=== PATIENT | female | born 1925 | race Caucasian/White ===

== ENCOUNTER 2016-10-07 20:42 | Inpatient (IN) | payer MEDICARE, OTHER ==
[~2016-10-07] VITALS: Ht 154.9 cm; Wt 59.1 kg
[~2016-10-07 20:42] MED LIST: AMLO-145; ASPI-727; CLON-379; ESOM40CA; HYDR25TA6; PRAM0.1224; VALS1TAB65; [UNRECOGNIZED DRUG - CODE]
[2016-10-07 20:52] VITALS: Ht 154.9 cm; Wt 59.1 kg
[2016-10-07] MEDS ORDERED: ACET-141 PO (20:54)
[2016-10-07] MEDS ORDERED: BISA10SU75 PR (20:55)
[2016-10-07] MEDS ORDERED: CLON-379 NG-TUBE (20:56)
[2016-10-07] MEDS ORDERED: CYAN500T46 NG-TUBE (21:00)
[2016-10-07] MEDS ORDERED: METO-429 NG-TUBE (21:01)
[2016-10-07] MEDS ORDERED: PANT40TA3 NG-TUBE (21:02)
[2016-10-07] MEDS ORDERED: MULT-276 NG-TUBE (21:06)
[2016-10-07] MEDS ORDERED: ATOR40TA68 NG-TUBE (21:10)
[2016-10-07] MEDS ORDERED: ACET-141 NG-TUBE (21:11)
[2016-10-07] MEDS ORDERED: ASPI81TA3 NG-TUBE (21:13)
[2016-10-07] MEDS ORDERED: WARF5TAB72 NG-TUBE (21:15)
[2016-10-07] MEDS ORDERED: FER325 NG-TUBE (21:16)
[2016-10-07] MEDS ORDERED: RIVA10TA NG-TUBE (21:17)
[2016-10-07] MEDS ORDERED: SS SC (21:22)
[2016-10-07] MEDS ORDERED: SOD CHLORIDE 0.9% 1,000 ML IV STA (21:33)
[2016-10-07] MEDS ORDERED: IPRATROPIUM (NEB) 0.5 MG/2.5 ML AMP NEB STA (21:33)
[2016-10-07] MEDS ORDERED: ALBUTEROL 0.083% (NEB) 2.5 MG/3 ML AMP NEB STA (21:33)
[2016-10-07 21:39] LABS: WHITE BLOOD COUNT 7.6 10^3/ul (4.8-10.8)
[2016-10-07 21:40] LABS: BASOPHILS % 0.3 % (0.0-2.0); EOSINOPHILS # 0.1 10^3/ul (0.0-0.5); EOSINOPHILS % 1.8 % (0.0-7.0); HEMATOCRIT 30.3 % (37.0-47.0); HEMOGLOBIN 10.1 g/dl (12.0-16.0); LYMPHOCYTES # 0.9 10^3/ul (0.8-2.9); LYMPHOCYTES % 11.5 % (15.0-51.0); MEAN CORPUSCULAR HEMOGLOBIN 30.3 pg (29.0-33.0); MEAN CORPUSCULAR HGB CONC 33.3 g/dl (32.0-37.0); MEAN PLATELET VOLUME 10.7 fl (7.4-10.4); MONOCYTE # 0.8 10^3/ul (0.3-0.9); MONOCYTES % 10.1 % (0.0-11.0); NEUTROPHILS % 75.5 % (39.0-77.0); PLATELET COUNT 193 10^3/UL (140-415); RED BLOOD COUNT 3.33 10^6/ul (4.20-5.40); RED CELL DISTRIBUTION WIDTH 12.5 % (11.5-14.5)
[2016-10-07 21:50] LABS: INR 1.78; PARTIAL THROMBOPLASTIN TIME 37.3 Sec (25.0-35.0); PROTIME 20.9 Sec (12.2-14.2); PT RATIO 1.6
[2016-10-07 21:55] LABS: ALBUMIN 3.3 g/dl (3.3-4.9); ALBUMIN/GLOBULIN RATIO 0.97; BILIRUBIN,INDIRECT 0.4 mg/dl (0-1.1); BILIRUBIN,TOTAL 0.4 mg/dl (0.2-1.3); CALCIUM 9.1 mg/dl (8.4-10.2); CREATININE 1.12 mg/dl (0.44-1.00); POTASSIUM 4.3 mmol/L (3.5-5.1); TOTAL PROTEIN 6.7 g/dl (6.1-8.1)
[2016-10-07 22:06] LABS: TROPONIN-I 0.025 ng/ml (0.00-0.12)
--- NOTE | 2016-10-07 22:14 | RADRPT ---
PROCEDURE: XR Chest. CLINICAL INDICATION: Shortness of breath TECHNIQUE: Single AP portable chest. COMPARISON: No prior Chest x-ray FINDINGS: The cardiomediastinal silhouette is within normal limits of size. Tortuosity and ectasia of the thor acic aorta. Atherosclerotic calcification of the aorta. Mild vascular congestion and prominence of the interstitial markings. No focal consolidation or pleural effusion. NG tube tip overlying the body of the stomach. No pneumothorax. The osseous structures and soft tissues are unremarkable. IMPRESSION: 1. Mild vascular congestion. No pleural effusion or focal consolidation. 2. NG tube in satisfactory position. . RPTAT:AAJJ Physician Palomo Date Time Electronically viewed and signed by Physician Palomo on 10/07/2016 22:14 ANUEL/
[2016-10-07] MEDS ORDERED: AZITHROMYCIN 500MG/NS (PMX) 250 ML IV STA (22:19)
--- NOTE | 2016-10-07 22:23 | RADRPT ---
PROCEDURE: XR Abdomen. CLINICAL INDICATION: NG tube placement. TECHNIQUE: Single view of the abdomen is available for review. COMPARISON: None. FINDINGS: There is an NG tube curled in the stomach with its tip overlying the gastric body. There is a nonobstructive bowel gas pattern. The soft tissues are unremarkable. There is lumbar dextrosco liosis and moderate multilevel degenerative enthesopathy. There are surgical clips in the right upp er quadrant, consistent with prior cholecystectomy. IMPRESSION: 1. NG tube curled in the stomach with its tip overlying the gastric body. RPTAT: HLBP .Buddy Ahmadi MD, Date Time Electronically viewed and signed by .Buddy Ahmadi MD, MD on 10/07/2016 22:23 .P/
[2016-10-07] MEDS ORDERED: CEFTRIAXONE 1 GM/50 ML (PMX) 50 ML IVPB ONE (22:30)
[2016-10-07] MEDS ORDERED: SOD CHLORIDE 0.9% 1,000 ML IV SCH (22:48)
--- NOTE | 2016-10-07 22:55 | ERA ---
ER Documentation Chief Complaint Date/Time DATE: 10/07/16 TIME: 22:53 Chief Complaint BIBA [id number] from [facility], tachypnea HPI History obtained from patient's family members as patient is unable to give a history secondary to her clinical condition. This is an 89-year-old female who presents to the emergency room from her correction facility for evaluation of fast breathing, and a fast heart rate. This patient recently suffered a stroke approximately 2 weeks ago and has been transferred to a correction facility. The patient has not been eating and is had been having difficulty swallowing food so a nasogastric tube was placed. This patient was brought to the ER for evaluation of tube placement, fast breathing and a fast heart rate. ROS All systems reviewed and are negative except as per history of present illness. Medications Home Meds Reported Medications Insulin Human Regular (Novolin-R U-100) 100 Unit/Ml Soln, 0 SC SLIDING SCALE AC , EA IF BS IS LESS THAN 70,CALL MD: 71-200=0 UNITS,201-250=3UNITS,251-300=5 UNITS,301-350=7 UNITS,351-400=9 UNITS. IF BS GREATER THAN 400=10 UNITS AND CALL MD. 10/07/16 Rivaroxaban* (Xarelto*) 10 Mg Tablet, 10 MG NG-TUBE Q9AM, TAB 10/07/16 Ferrous Sulfate* (Ferrous Sulfate*) 325 Mg Tabec, 325 MG NG-TUBE Q9AM, TAB 10/07/16 Warfarin Sodium* (Coumadin*) 5 Mg Tablet, 5 MG NG-TUBE Q5PM, TAB 10/07/16 Aspirin* (Aspirin* Chew) 81 Mg Tab.chew, 81 MG NG-TUBE DAILY, TAB.CHEW END DATE 10/11/16 10/07/16 Acetaminophen* (Acetaminophen*) 500 MG Extra Strength Tablet, 500 MG NG-TUBE Q6H Y for PAIN AND OR ELEVATED TEMP, TAB 10/07/16 Atorvastatin* (Atorvastatin*) 40 Mg Tablet, 40 MG NG-TUBE Q9PM, #30 TAB 10/07/16 Multivit,Tx,Iron/Calcm/FA/Mins (Thera-M Caplet) 1 Each Tablet, 1 EACH NG-TUBE Q9AM, TAB 10/07/16 Pantoprazole* (Protonix*) 40 Mg Tablet.dr, 40 MG NG-TUBE Q6:30AM, TAB 10/07/16 Metoprolol Tartrate* (Lopressor*) 50 Mg Tab, 50 MG NG-TUBE BID, #60 TAB HOLD FOR SBP<100 OR HR<60 10/07/16 Cyanocobalamin* (Vitamin B12*) 500 Mcg Tab, 250 MCG NG-TUBE Q9AM, TAB 10/07/16 Clonidine Hcl* (Clonidine Hcl*) 0.1 Mg Tab, 0.1 MG NG-TUBE Q9AM Y for HTN, TAB HOLD FOR ABP<100 10/07/16 Bisacodyl* (Bisacodyl*) 10 Mg Supp, 10 MG OK Q24H for CONSTIPATION, SUPP 10/07/16 Discontinued Reported Medications Acetaminophen* (Acetaminophen*) 500 MG Extra Strength Tablet, 500 MG PO Q6H Y for PAIN, TAB 10/07/16 Hydrochlorothiazide (Hydrochlorothiazide) 25 Mg Tablet 08/25/10 Meclizine Hcl (D-Vert) 25 Mg Tablet 08/25/10 Pramipexole* (Mirapex*) 0.125 Mg Tablet 08/25/10 Aspirin (Adult Aspirin) 81 Mg Tab.chew 08/25/10 Clonidine Hcl* (Clonidine Hcl*) 0.1 Mg Tab 08/25/10 Valsartan-Hydrochlorothiazide (Diovan HCT) 1 Tab Tablet 08/25/10 Esomeprazole Mag Trihydrate (Nexium) 40 Mg Capsule. 08/25/10 Amlodipine Besylate* (Amlodipine Besylate*) 5 Mg Tablet 08/25/10 Allergies Allergies: Coded Allergies: No Known Allergies (Verified Allergy, Mild, 10/07/16) PMhx/Soc History of Surgery: No Anesthesia Reaction: No Hx 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 Disorder: Yes (CVA SEPTEMBER 2016) Hx Respiratory Disorders: No Hx Cardiac Disorders: Yes (HTN) Hx Psychiatric Problems: No Hx Miscellaneous Medical Probl: Yes (ARTHRITIS) Hx Alcohol Use: No Hx Substance Use: No Hx Tobacco Use: No Smoking Status: Never smoker Physical Exam Vitals Vital Signs Date Time Temp Pulse Resp B/P Pulse Ox O2 Delivery O2 Flow Rate FiO2 10/07/16 21:40 98 20 100 Nasal Cannula 3.0 10/07/16 21:26 Nasal Cannula 2 10/07/16 20:52 99.2 93 24 146/66 95 Physical Exam Const: Frail-appearing elderly female Head: Atraumatic Eyes: Normal Conjunctiva ENT: Dry mucous membranes, nasogastric tube in place, normal External Ears, Nose and Mouth. Neck: Full range of motion..~ No meningismus. Resp: Clear to auscultation bilaterally Cardio: Irregularly irregular rhythm no murmurs Abd: Soft, non tender, non distended. Normal bowel sounds Skin: No petechiae or rashes Back: No midline or flank tenderness Ext: No cyanosis, or edema Neur: Awake and alert Psych: Normal Mood and Affect Result Diagram: 10/07/16211910/07/162119 Results 24 hrs Laboratory Tests Test 10/07/16 21:20 White Blood Count 7.610^3/ul Red Blood Count 3.3310^6/ul Hemoglobin 10.1g/dl Hematocrit 30.3% Mean Corpuscular Volume 91.0fl Mean Corpuscular Hemoglobin 30.3pg Mean Corpuscular Hemoglobin Concent 33.3g/dl Red Cell Distribution Width 12.5% Platelet Count 05172^3/UL Mean Platelet Volume 10.7fl Neutrophils % 75.5% Lymphocytes % 11.5% Monocytes % 10.1% Eosinophils % 1.8% Basophils % 0.3% Nucleated Red Blood Cells % 0.0/100WBC Neutrophils # (Manual) 610^3/ul Lymphocytes # 0.910^3/ul Monocytes # 0.810^3/ul Eosinophils # 0.110^3/ul Basophils # 0.010^3/ul Nucleated Red Blood Cells # 0.010^3/ul Prothrombin Time 20.9Sec Prothrombin Time Ratio 1.6 INR International Normalized Ratio 1.78 Activated Partial Thromboplast Time 37.3Sec Sodium Level 145mmol/L Potassium Level 4.3mmol/L Chloride Level 100mmol/L Carbon Dioxide Level 31mmol/L Anion Gap 18 Blood Urea Nitrogen 66mg/dl Creatinine 1.12mg/dl Glucose Level 158mg/dl Lactic Acid Level 1.4mmol/L Calcium Level 9.1mg/dl Total Bilirubin 0.4mg/dl Direct Bilirubin 0.00mg/dl Indirect Bilirubin 0.4mg/dl Aspartate Amino Transf (AST/SGOT) 56IU/L Alanine Aminotransferase (ALT/SGPT) 54IU/L Alkaline Phosphatase 94IU/L Troponin I 0.025ng/ml Total Protein 6.7g/dl Albumin 3.3g/dl Globulin 3.40g/dl Albumin/Globulin Ratio 0.97 Current Medications Medications (Trade) Dose Ordered Sig/Randall Route PRN Reason Start Time Stop Time Status Last Admin Dose Admin Albuterol (Proventil 0.083% (Neb)) 5 mg ONCE STAT NEB 10/07/16 21:33 10/07/16 21:34 DC 10/07/16 21:38 Ipratropium [place] 0.5 mg 0.5 mg ONCE STAT NEB 10/07/16 21:33 10/07/16 21:34 DC 10/07/16 21:39 Sodium Chloride 1,000 ml @ 1,000 mls/hr Q1H STAT IV 10/07/16 21:33 10/07/16 22:32 DC 10/07/16 22:21 Ceftriaxone Sodium 50 ml @ 100 mls/hr ONCE ONCE IVPB 10/07/16 22:30 10/07/16 22:59 10/07/16 22:48 Azithromycin (Zithromax 500mg/ NS (Pmx)) 250 ml @ 250 mls/hr ONCE STAT IV 10/07/16 22:19 10/07/16 23:18 Diltiazem HCl 10 mg 10 mg ONCE ONCE IV 10/07/16 23:00 10/07/16 23:01 10/07/16 22:48 Sodium Chloride (NS) 1,000 ml @ 80 mls/hr [id number] IV 10/07/16 22:48 10/08/16 11:17 Ondansetron HCl (Zofran Inj) 4 mg ER BRIDGE PRN IV NAUSEA AND/OR VOMITING 10/07/16 23:00 10/08/16 22:59 Acetaminophen (Tylenol Tab) 650 mg ER BRIDGE PRN PO MILD PAIN/FEVER 10/07/16 23:00 10/08/16 22:59 Procedures/MDM Chest X-ray 1V Interpreted by me: Soft Tissue: No acute abnormalities Bones: No acute abnormalities Mediastinum/Cardiac Silhouette/Lungs: [No acute abnormalities] X-ray Abdomen 1V Interpreted by me: Free Air: None Bowel Gas: Nonspecific Soft Tissue: Normal EKG: Rate/Rhythm: A. fib with RVR QRS, ST, T-waves: [No changes consistent w/ acute ischemia] Impression: A. fib with RVR This 89-year-old female presents to the ER for evaluation of tachypnea, tachycardia. When I evaluated her she was in A. fib with a rapid ventricular rate. The patient did have a nasogastric tube in place and the patient did recently suffer from stroke 2 weeks ago. She has not been eating and therefore had a nasogastric tube placed. I have contacted her primary care physician, Dr. Argueta and have discussed the case with him and that he states that the patient's family members have refused a PEG tube. I have spoken with the patient's family members at bedside and they state that they would like a swallow evaluation and speech evaluation prior to making the decision on placing the PEG tube. This patient did have coarse breath sounds bilaterally. Patient was given Rocephin and azithromycin. Her A. fib with RVR is controlled with 10 mg of Cardizem in the emergency room. She is a DNR and DNI. The patient will be admitted to the telemetry floor at this time. Critical Care: Excluding all billable procedures Time: 33 minutes Treatments/Evaluations: Close monitoring and treatment of unstable vital signs, cardiorespiratory, and neurologic status, while maintaining tight balance of fluid, respiratory, and cardiac interventions. Critical Care: Excluding all billable procedures Departure Diagnosis: Primary Impression: Atrial fibrillation with RVR Additional Impressions: Mild dehydration Dysphagia Condition: Stable ANG MALONEY DO Oct 07, 2016 22:55
[2016-10-07] MEDS ORDERED: ONDANSETRON 4 MG INJ IV PRN (23:00)
[2016-10-07] MEDS ORDERED: DILTIAZEM 25 MG INJ IV ONE (23:00)
[2016-10-07] MEDS ORDERED: ACETAMINOPHEN 325 MG TAB PO PRN (23:00)
[2016-10-08] VITALS (15 sets, daily range): BP systolic 119–145; BP diastolic 57–82; PULSE 93–108; RESP 18–24; TEMP 99.9
[2016-10-08] MEDS ORDERED: VANCOMYCIN 1 GM (PMX) 250 ML IVPB STA (00:05)
[2016-10-08] MEDS ORDERED: PIPER-TAZO 3.375 GM IV (PMX) 100 ML IVPB STA (00:05)
[2016-10-08] MEDS ORDERED: ACETAMINOPHEN 325 MG SUPP PR PRN (00:30)
[2016-10-08] MEDS: DEXTROSE 5%-0.9% NACL 1,000 ML IV SCH ×2 (02:29→14:37)
[2016-10-08] MEDS: IPRATROPIUM (NEB) 0.5 MG/2.5 ML AMP HHN SCH ×2 (07:43→16:05)
[2016-10-08] MEDS: ALBUTEROL 0.083% (NEB) 2.5 MG/3 ML AMP HHN SCH ×2 (07:43→16:05)
--- NOTE | 2016-10-08 09:33 | HP ---
Date/Time of Note Date/Time of Note DATE: 10/08/16 TIME: 07:51 Assessment/Plan VTE Prophylaxis VTE Prophylaxis Intervention: anti-embolic stocking VTE Contraindication Reason: peripheral vascular disease Lines/Catheters IV Catheter Type (from Nrsg): Peripheral IV Central line still needed: No Urinary Cath still in place: Yes Reason Cath still needed: urinary retention Assessment/Plan Assessment/Plan 1.Sepsis-aspiration pneumonia and /or URI/uti 2.Aspiration pneumonia NGT will keep one more day 3.Lactic acidosis 4.ATN with elevated creatinine1.07 now 1.12 5.CVA with left hemiplegia 2 weeks ago, 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 14.S/P midline laparotomy with cholecystectomy 15.Hematuria and uti 16.Urinary incontinence 17.Osteoporosis; kyphosis 18.Multiple s/c ecchymoses inr 1.7 19.Expressed wishes if not to intubate and "no machines if I am dying " according to family. Initially family refused any invasive procedures. After explanation that she will stave and be deprived of water if no G- tube they decided to reconsider as a necessary minimum to sustain life. Code status DNR. incomplete data. 20.Not treated for a. fobrillation so far as per family information. They didn't know that she had a diabetes with high HGAqc. 21. Cont'd Hospitalization Reason: as above. HPI/ROS Admit Date/Time Admit Date/Time Oct 07, 2016 at 22:49 Hx of Present Illness Unable to provide information. Initially was seen 5 days ago in SNF. Discussed with the daughter Samantha to transfer the patient to [facility] for NGT removal and G tube placement. 2 days ago I arrange with dr. Zuniga the details. When I inform the family it become clear that the patient earlier, before developing a stroke about 10 days ago and was treated in [facility], she didn't want any "tubes" or "machines" to be attached to her body. I explained the family by doing that we will starve her to . Son said it's ok. Shannan I talked with Samantha again, about G-tube issue. She also changed her mind and said no tubes please. I ordered to remove the NGT but it was not done. Worsening of sob and tachycardia according to RN report from [facility]. Condition was deterioration rather rapidly with drop of BP. I recommended to transfer to hospital.Now she is apparently septic and will follow as such with code status DNR and DNI. ROS Subjective hx not possible: other (unable to communicate. All the information from daughter ans son. and snf data.) PMH/Family/Social Past Medical History Medical History: congestive heart failure, coronary artery disease, diabetes, hypertension Past Surgical History Past Surgical Hx: cholecystectomy Family History Significant Family History: heart disease, hypertension Social History Alcohol Use: none Smoking Status: Never smoker Drug Use: none Exam/Review of Systems Vital Signs Vitals Vital Signs Date Time Temp Pulse Resp B/P Pulse Ox O2 Delivery O2 Flow Rate FiO2 10/08/16 07:47 98 2.0 10/08/16 07:47 99 18 Nasal Cannula 10/08/16 04:00 98.2 145/82 Intake and Output 10/07/16 10/07/16 10/08/16 15:00 23:00 07:00 Intake Total 280 ml Output Total 750 ml Balance -470 ml Exam Constitutional: distress, frail, other (lethargic arousable), No alert, No non-verbal, No oriented, No well developed Psych: confusion, No anxiety, No depression, No nl mood/affect, No no complaints, No other, No suicidal Head: atraumatic, normocephalic, No hematomas, No lacerations, No other Eyes: EOMI (unable to check.) ENMT: nl external ears & nose, nl nasal mucosa & septum, other (NGT in place. ), tympanic membranes (sclerotic. responds to voice.) Neck: bruits, nuchal rigidity, No jvd, No masses, No non-tender, No other, No thyromegaly Respiratory: diminished breath sounds, normal air movement, No clear to auscultation, No congested cough, No crackles/rales, No intercostal retraction, No labored breathing, No other, No respirations, No tactile fremitus, No wheezing Cardiovascular: bruits, nl pulses, regular rate and rhythm (irregular.), No S3, No S4, No diastolic murmur, No edema, No gallop, No irregular rhythm, No jugular venous distention (JVD), No murmurs/extra sounds, No other, No rub, No systolic murmur Gastrointestinal: bowel sounds, distended, nl liver, spleen, soft, surgical scars, No ascites, No firm, No hepatomegaly, No mass, No non-tender, No other, No rebound or guarding, No splenomegaly, No tender Genitourinary - Female: other (externally normal.) Musculoskeletal: joint tenderness, muscle tone, muscle weakness, other (left hemiplegia.) Extremities: normal pulses, No calf tenderness, No clubbing, No cyanosis, No edema, No other, No palpable cord, No pitting pedal edema, No tenderness 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: [employer] II-XII intact, confused, focal weakness, lethargic, numbness , reflexes (left Babinski.), No DTR's symmetric, No nl mental status, No nl speech, No nl strength, No other, No unresponsive Skin: diaphoresis, No ecchymosis, No laceration, No nl turgor, No other, No puncture, No rash or lesions Labs Result Diagram: 10/07/16211910/07/162119 Medications Medications Current Medications Sodium Chloride (NS) 1,000 ml @ 80 mls/hr [id number] IV ; Start 10/07/16 at 22:48 ; Stop 10/08/16 at 11:17 Ferrous Sulfate (Ferrous Sulfate (Ec)) 325 mg DAILY PO ; Start 10/08/16 at 09:00 Acetaminophen 325 mg 325 mg Q8 PRN [place] FEVER; Start 10/08/16 at 00:30 Dextrose/Sodium Chloride (D5-NS) 1,000 ml @ 70 mls/hr [id number] IV Last administered on 10/08/16t 02:29; Admin Dose 70 MLS/HR; Start 10/08/16 at 00:30 Acetaminophen (Tylenol Supp) 325 mg Q8 PRN [place] FEVER GREATER THAN 100.6; Start 8/18/17 at 00:30 YASIR HART MD Oct 08, 2016 08:02
[2016-10-08 10:14] LABS: BASOPHILS % 0.4 % (0.0-2.0); EOSINOPHILS % 0.4 % (0.0-7.0); HEMATOCRIT 27.9 % (37.0-47.0); HEMOGLOBIN 9.1 g/dl (12.0-16.0); LYMPHOCYTES # 0.8 10^3/ul (0.8-2.9); LYMPHOCYTES % 10.8 % (15.0-51.0); MEAN CORPUSCULAR HEMOGLOBIN 30.1 pg (29.0-33.0); MEAN CORPUSCULAR HGB CONC 32.6 g/dl (32.0-37.0); MEAN CORPUSCULAR VOLUME 92.4 fl (82.0-101.0); MEAN PLATELET VOLUME 11.1 fl (7.4-10.4); MONOCYTE # 0.9 10^3/ul (0.3-0.9); MONOCYTES % 11.2 % (0.0-11.0); NEUTROPHILS % 76.4 % (39.0-77.0); PLATELET COUNT 180 10^3/UL (140-415); RED BLOOD COUNT 3.02 10^6/ul (4.20-5.40); RED CELL DISTRIBUTION WIDTH 12.8 % (11.5-14.5); WHITE BLOOD COUNT 7.8 10^3/ul (4.8-10.8)
[2016-10-08] MEDS: FAMOTIDINE 20 MG INJ IV SCH (10:19)
[2016-10-08 10:43] LABS: CALCIUM 8.2 mg/dl (8.4-10.2); CREATININE 1.18 mg/dl (0.44-1.00); POTASSIUM 4.3 mmol/L (3.5-5.1)
--- NOTE | 2016-10-08 11:56 | CONS ---
Date/Time of Note Date/Time of Note DATE: 10/08/16 TIME: 11:55 Assessment/Plan Assessment/Plan Additional Assessment/Plan 1. acute kidney injury on CKD 2. sepsis, dysphagia, aspiration PNA 3. HTN 4. Type II DM 5. H/o recent CVA s/p tPA at [facility] 6. atrial fibrillatino with intermittently elevated HR Plan: Continue current IV abx, continue IVF D5NS at 60 cc/hr pt need GI consult for G tube evaluation BP stable, urine studie, CK,uric acid,renal has been orderd for work up of VERO onCKD Thanks for consultation, I will continue to follow up on patient Consultation Date/Type/Reason Admit Date/Time Oct 07, 2016 at 22:49 Date of Consultation: Oct 08, 2016 Type of Consultation: NEPHROLOGY Reason for Consultation acute kidney injury on possible CKD, hyperkalemia Referring Provider: YASIR HART MD Hx of Present Illness 89 F with PMhx of HTN, Type II DM, h/o atrial fibrillation, H/o CVA with left hemiplegia 2weeks ago, s/p TPA, was admitted to [facility], severe PAD with Caroid atherosclerosis, Dysphagia failed swallow evalatio, admitted for sepsis, Aspiration PNA and lactic acidosis. Renal has been consulted for VERO on CKD< hyperkalemia Subjective hx not possible: pt non-verbal Psychological: confusion, No anxiety, No depression, No nl mood/affect, No no complaints, No other, No suicidal Past Medical History Medical History: diabetes, high cholesterol, hypertension, hypothyroid, other ( h/o CV Aiwth left weakness ) Past Surgical History Past Surgical Hx: no surgical history Family History Significant Family History: no pertinent family hx Social History Alcohol Use: none Smoking Status: Never smoker Drug Use: none Exam/Review of Systems Vital Signs Vitals Vital Signs Date Time Temp Pulse Resp B/P Pulse Ox O2 Delivery O2 Flow Rate FiO2 10/08/16 09:07 3.0 10/08/16 08:18 108 10/08/16 07:53 98.0 19 119/59 98 10/08/16 07:47 Nasal Cannula Intake and Output 10/07/16 10/07/16 10/08/16 15:00 23:00 07:00 Intake Total 280 ml Output Total 750 ml Balance -470 ml Exam Constitutional: non-verbal Psych: no complaints Head: normocephalic Eyes: nl conjunctiva Respiratory: congested cough, crackles/rales, diminished breath sounds Cardiovascular: irregular rhythm, regular rate and rhythm Gastrointestinal: non-tender, soft Musculoskeletal: joint tenderness, muscle weakness, range of motion, swelling 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: lethargic, unresponsive Skin: nl turgor Lymph: nl lymph nodes Results Result Diagram: 10/08/16 0930 10/08/16 0915 Results 24 hrs Laboratory Tests Test 10/07/16 21:20 10/07/16 23:49 10/08/16 02:20 10/08/16 09:15 White Blood Count 7.6 Red Blood Count 3.33 L Hemoglobin 10.1 L Hematocrit 30.3 L Mean Corpuscular Volume 91.0 Mean Corpuscular Hemoglobin 30.3 Mean Corpuscular Hemoglobin Concent 33.3 Red Cell Distribution Width 12.5 Platelet Count 193 Mean Platelet Volume 10.7 H Neutrophils % 75.5 Lymphocytes % 11.5 L Monocytes % 10.1 Eosinophils % 1.8 Basophils % 0.3 Nucleated Red Blood Cells % 0.0 Neutrophils # (Manual) 6 Lymphocytes # 0.9 Monocytes # 0.8 Eosinophils # 0.1 Basophils # 0.0 Nucleated Red Blood Cells # 0.0 Prothrombin Time 20.9 H Prothrombin Time Ratio 1.6 INR International Normalized Ratio 1.78 Activated Partial Thromboplast Time 37.3 H Sodium Level 145 H 146 H Potassium Level 4.3 4.3 Chloride Level 100 105 Carbon Dioxide Level 31 27 Anion Gap 18 H 18 H Blood Urea Nitrogen 66 H 60 H Creatinine 1.12 H 1.18 H Glucose Level 158 163 Lactic Acid Level 1.4 1.4 2.8 *H Calcium Level 9.1 8.2 L Total Bilirubin 0.4 Direct Bilirubin 0.00 Indirect Bilirubin 0.4 Aspartate Amino Transf (AST/SGOT) 56 H Alanine Aminotransferase (ALT/SGPT) 54 Alkaline Phosphatase 94 Troponin I 0.025 Total Protein 6.7 Albumin 3.3 Globulin 3.40 H Albumin/Globulin Ratio 0.97 Test 10/08/16 09:30 10/08/16 10:31 White Blood Count 7.8 Red Blood Count 3.02 L Hemoglobin 9.1 L Hematocrit 27.9 L Mean Corpuscular Volume 92.4 Mean Corpuscular Hemoglobin 30.1 Mean Corpuscular Hemoglobin Concent 32.6 Red Cell Distribution Width 12.8 Platelet Count 180 Mean Platelet Volume 11.1 H Neutrophils % 76.4 Lymphocytes % 10.8 L Monocytes % 11.2 H Eosinophils % 0.4 Basophils % 0.4 Nucleated Red Blood Cells % 0.0 Neutrophils # (Manual) 6 Lymphocytes # 0.8 Monocytes # 0.9 Eosinophils # 0.0 Basophils # 0.0 Nucleated Red Blood Cells # 0.0 Lactic Acid Level 1.7 Medications Medications Current Medications Ferrous Sulfate (Ferrous Sulfate (Ec)) 325 mg DAILY PO ; Start 10/08/16 at 09:00 Acetaminophen 325 mg 325 mg Q8 PRN [place] FEVER; Start 10/08/16 at 00:30 Dextrose/Sodium Chloride (D5-NS) 1,000 ml @ 100 mls/hr Q10H IV Last administered on 10/08/16 02:29; Admin Dose 70 MLS/HR; Start 10/08/16 at 00:30 Acetaminophen (Tylenol Supp) 325 mg Q8 PRN [place] FEVER GREATER THAN 100.6; Start 10/08/16 at 00:30 Famotidine (Pepcid Iv) 20 mg DAILY IV Last administered on 10/08/16 10:19; Admin Dose 20 MG; Start 10/08/16 at 09:00 MAINOR HUTCHISON MD Oct 08, 2016 11:56
--- NOTE | 2016-10-08 15:18 | RADRPT ---
PROCEDURE: Renal US. CLINICAL INDICATION: Acute renal failure TECHNIQUE: Multiple sonographic images of the kidneys and bladder were obtained. The images were reviewed on a PACS workstation. COMPARISON: No prior studies are available for comparison. FINDINGS: The kidneys are well visualized. The right kidney is atrophic and measures 6.7 cm. The left kidney m easures 10.1 cm. There are no focal areas of abnormal echogenicity in the left kidney. There is no e vidence for obstructive uropathy. The bladder is unremarkable. There are no filling defects or stones in the bladder. IMPRESSION: 1. Atrophic right kidney. 2. Left kidney within normal limits. 3. No evidence for obstructive uropathy RPTAT: RR .Nacho Argueta MD, Date Time Electronically viewed and signed by .Nacho Argueta MD, MD on 10/08/2016 15:18 .M/
--- NOTE | 2016-10-08 15:21 | CONS ---
Date/Time of Note Date/Time of Note DATE: 10/08/16 TIME: 15:13 Assessment/Plan Assessment/Plan Chief Complaint/Hosp Course Chronic atrial fibrillation: Had rapid rates on admission, now better after IVF and antibiotics Aspiration PNA ARF: mildly elevated Cr Recent CVA s/p TPA DM HTN -start metoprolol at half outpt dose 25mg BID and uptitrate -restart either coumadin or Xarelto (unclear which pt is taking) -antibiotics per primary Problems: Consultation Date/Type/Reason Admit Date/Time Oct 07, 2016 at 22:49 Date of Consultation: Oct 08, 2016 Type of Consultation: Cardiology Reason for Consultation Afib with RVR Referring Provider: YASIR HART MD Hx of Present Illness 89 yo F with a h/o recent CVA 09/28 s/p TPA, residual hemiplegia and dysphagia s/ p NG tube, chronic afib, DM, HTN, who was brought in from her SN[facility] for SOB and likely aspiration. The pt is nonverbal but squeezes her right hand to command. She was noted to be in afib on admission, but now controlled. Unclear if she is taking coumadin or Xarelto as both are on her med list unable to obtain Psychological: no complaints Past Medical History Medical History: diabetes, high cholesterol, hypertension, hypothyroid, other Past Surgical History Past Surgical Hx: no surgical history Social History Alcohol Use: none Smoking Status: Never smoker Drug Use: none Exam/Review of Systems Vital Signs Vitals Vital Signs Date Time Temp Pulse Resp B/P Pulse Ox O2 Delivery O2 Flow Rate FiO2 10/08/16 12:22 100 10/08/16 12:08 98.0 19 122/57 96 10/08/16 09:07 3.0 10/08/16 07:47 Nasal Cannula Intake and Output 10/07/16 10/07/16 10/08/16 15:00 23:00 07:00 Intake Total 280 ml Output Total 750 ml Balance -470 ml Exam Constitutional: No alert, No distress Head: atraumatic, normocephalic Neck: jvd (7-8cm), supple Respiratory: crackles/rales (mild), No clear to auscultation Cardiovascular: edema (trace), No regular rate and rhythm (iRIR) Gastrointestinal: non-tender, soft 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: No nl mental status, No nl speech Results Result Diagram: 10/08/16 0930 10/08/16 0915 Results 24 hrs Laboratory Tests Test 10/07/16 21:20 10/07/16 23:49 10/08/16 02:20 10/08/16 09:15 White Blood Count 7.6 Red Blood Count 3.33 L Hemoglobin 10.1 L Hematocrit 30.3 L Mean Corpuscular Volume 91.0 Mean Corpuscular Hemoglobin 30.3 Mean Corpuscular Hemoglobin Concent 33.3 Red Cell Distribution Width 12.5 Platelet Count 193 Mean Platelet Volume 10.7 H Neutrophils % 75.5 Lymphocytes % 11.5 L Monocytes % 10.1 Eosinophils % 1.8 Basophils % 0.3 Nucleated Red Blood Cells % 0.0 Neutrophils # (Manual) 6 Lymphocytes # 0.9 Monocytes # 0.8 Eosinophils # 0.1 Basophils # 0.0 Nucleated Red Blood Cells # 0.0 Prothrombin Time 20.9 H Prothrombin Time Ratio 1.6 INR International Normalized Ratio 1.78 Activated Partial Thromboplast Time 37.3 H Sodium Level 145 H 146 H Potassium Level 4.3 4.3 Chloride Level 100 105 Carbon Dioxide Level 31 27 Anion Gap 18 H 18 H Blood Urea Nitrogen 66 H 60 H Creatinine 1.12 H 1.18 H Glucose Level 158 163 Lactic Acid Level 1.4 1.4 2.8 *H Calcium Level 9.1 8.2 L Total Bilirubin 0.4 Direct Bilirubin 0.00 Indirect Bilirubin 0.4 Aspartate Amino Transf (AST/SGOT) 56 H Alanine Aminotransferase (ALT/SGPT) 54 Alkaline Phosphatase 94 Troponin I 0.025 Total Protein 6.7 Albumin 3.3 Globulin 3.40 H Albumin/Globulin Ratio 0.97 Test 10/08/16 09:30 10/08/16 10:31 10/08/16 12:00 White Blood Count 7.8 Red Blood Count 3.02 L Hemoglobin 9.1 L Hematocrit 27.9 L Mean Corpuscular Volume 92.4 Mean Corpuscular Hemoglobin 30.1 Mean Corpuscular Hemoglobin Concent 32.6 Red Cell Distribution Width 12.8 Platelet Count 180 Mean Platelet Volume 11.1 H Neutrophils % 76.4 Lymphocytes % 10.8 L Monocytes % 11.2 H Eosinophils % 0.4 Basophils % 0.4 Nucleated Red Blood Cells % 0.0 Neutrophils # (Manual) 6 Lymphocytes # 0.8 Monocytes # 0.9 Eosinophils # 0.0 Basophils # 0.0 Nucleated Red Blood Cells # 0.0 Lactic Acid Level 1.7 1.5 Medications Medications Current Medications Ferrous Sulfate (Ferrous Sulfate (Ec)) 325 mg DAILY PO ; Start 10/08/16 at 09:00 Acetaminophen 325 mg 325 mg Q8 PRN [place] FEVER; Start 10/08/16 at 00:30 Dextrose/Sodium Chloride (D5-NS) 1,000 ml @ 60 mls/hr [id number] IV Last administered on 10/08/16 14:37; Admin Dose 60 MLS/HR; Start 10/08/16 at 00:30 Acetaminophen (Tylenol Supp) 325 mg Q8 PRN [place] FEVER GREATER THAN 100.6; Start 10/08/16 at 00:30 Famotidine (Pepcid Iv) 20 mg DAILY IV Last administered on 10/08/16 10:19; Admin Dose 20 MG; Start 10/08/16 at 09:00 ADAN BLAIR Oct 08, 2016 15:21
[2016-10-08 15:33] LABS: PROTEIN/CREAT RATIO 3.02 RATIO
[2016-10-08] MEDS: FERROUS SULFATE (EC) 325 MG TAB PO SCH (16:03)
[2016-10-08] MEDS: METOPROLOL 25 MG TAB NGT SCH (20:33)
--- NOTE | 2016-10-08 20:34 | CONS ---
Date/Time of Note Date/Time of Note DATE: 10/08/16 TIME: 20:31 Assessment/Plan Assessment/Plan Additional Assessment/Plan 1. CVA status post TPA at [facility] 2. Left hemiplegia 3. Dysphagia 4. Prerenal azotemia 5. Anemia 6. Diabetes mellitus 7. Hypertension 8. Atrial fibrillation 9. Possible aspiration pneumonia 10. 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 Plan Continue antibiotic 's once the patient is stable and if family agrees then will proceed with the PEG Consultation Date/Type/Reason Admit Date/Time Oct 07, 2016 at 22:49 Reason for Consultation Dysphagia possible placement of G-tube Hx of Present Illness 89-year-old female with a history of diabetes mellitus, hypertension, atrial fibrillation had a stroke a few days ago for which she was hospitalized at [facility]. Swallow study was done patient failed swallow study so NG tube was passed and was transferred to assisted. Patient was supposed to have a G-tube as outpatient but in the interim she aspirated became septic and was brought to the emergency room and admitted to [facility]. Patient is nonverbal. All the information gathered by reviewing the chart. Psychological: no complaints Past Medical History Medical History: diabetes, high cholesterol, hypertension, hypothyroid, other Past Surgical History Past Surgical Hx: no surgical history Social History Alcohol Use: none Smoking Status: Never smoker Drug Use: none Exam/Review of Systems Vital Signs Vitals Vital Signs Date Time Temp Pulse Resp B/P Pulse Ox O2 Delivery O2 Flow Rate FiO2 10/08/16 20:06 93 10/08/16 19:48 98.4 18 141/64 100 10/08/16 16:07 Nasal Cannula 2.0 Intake and Output 10/07/16 10/07/16 10/08/16 15:00 23:00 07:00 Intake Total 280 ml Output Total 750 ml Balance -470 ml Exam Respiratory: clear to auscultation, normal air movement Cardiovascular: nl pulses, regular rate and rhythm Gastrointestinal: nl liver, spleen, non-tender, soft Extremities: normal pulses 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: lethargic Results Result Diagram: 10/08/16 0930 10/08/16 0915 Results 24 hrs Laboratory Tests Test 10/07/16 21:20 10/07/16 23:49 10/08/16 02:20 10/08/16 09:15 White Blood Count 7.6 Red Blood Count 3.33 L Hemoglobin 10.1 L Hematocrit 30.3 L Mean Corpuscular Volume 91.0 Mean Corpuscular Hemoglobin 30.3 Mean Corpuscular Hemoglobin Concent 33.3 Red Cell Distribution Width 12.5 Platelet Count 193 Mean Platelet Volume 10.7 H Neutrophils % 75.5 Lymphocytes % 11.5 L Monocytes % 10.1 Eosinophils % 1.8 Basophils % 0.3 Nucleated Red Blood Cells % 0.0 Neutrophils # (Manual) 6 Lymphocytes # 0.9 Monocytes # 0.8 Eosinophils # 0.1 Basophils # 0.0 Nucleated Red Blood Cells # 0.0 Prothrombin Time 20.9 H Prothrombin Time Ratio 1.6 INR International Normalized Ratio 1.78 Activated Partial Thromboplast Time 37.3 H Sodium Level 145 H 146 H Potassium Level 4.3 4.3 Chloride Level 100 105 Carbon Dioxide Level 31 27 Anion Gap 18 H 18 H Blood Urea Nitrogen 66 H 60 H Creatinine 1.12 H 1.18 H Glucose Level 158 163 Lactic Acid Level 1.4 1.4 2.8 *H Calcium Level 9.1 8.2 L Total Bilirubin 0.4 Direct Bilirubin 0.00 Indirect Bilirubin 0.4 Aspartate Amino Transf (AST/SGOT) 56 H Alanine Aminotransferase (ALT/SGPT) 54 Alkaline Phosphatase 94 Troponin I 0.025 Total Protein 6.7 Albumin 3.3 Globulin 3.40 H Albumin/Globulin Ratio 0.97 Test 10/08/16 09:30 10/08/16 10:31 10/08/16 12:00 10/08/16 14:35 White Blood Count 7.8 Red Blood Count 3.02 L Hemoglobin 9.1 L Hematocrit 27.9 L Mean Corpuscular Volume 92.4 Mean Corpuscular Hemoglobin 30.1 Mean Corpuscular Hemoglobin Concent 32.6 Red Cell Distribution Width 12.8 Platelet Count 180 Mean Platelet Volume 11.1 H Neutrophils % 76.4 Lymphocytes % 10.8 L Monocytes % 11.2 H Eosinophils % 0.4 Basophils % 0.4 Nucleated Red Blood Cells % 0.0 Neutrophils # (Manual) 6 Lymphocytes # 0.8 Monocytes # 0.9 Eosinophils # 0.0 Basophils # 0.0 Nucleated Red Blood Cells # 0.0 Lactic Acid Level 1.7 1.5 Urine Eosinophils % 0.0 Urine Random Creatinine 32.71 Urine Random Sodium 108 H Urine Protein/Creatinine Ratio 3.02 Urine Total Protein 99.0 H Test 10/08/16 15:05 10/08/16 19:23 Lactic Acid Level 1.3 0.9 Medications Medications Current Medications Ferrous Sulfate (Ferrous Sulfate (Ec)) 325 mg DAILY PO Last administered on 16:03; Admin Dose 325 MG; Start 10/08/16 at 09:00 Acetaminophen 325 mg 325 mg Q8 PRN [place] FEVER; Start 10/08/16 at 00:30 Dextrose/Sodium Chloride (D5-NS) 1,000 ml @ 60 mls/hr [id number] IV Last administered on 10/08/16 14:37; Admin Dose 60 MLS/HR; Start 10/08/16 at 00:30 Famotidine (Pepcid Iv) 20 mg DAILY IV Last administered on 10/08/16 10:19; Admin Dose 20 MG; Start 10/08/16 at 09:00 Metoprolol Tartrate (Lopressor) 25 mg BID NGT ; Start 10/08/16 at 21:00 Clopidogrel Bisulfate (plaVIX) 75 mg DAILY GTB ; Start 10/09/16 at 09:00 SANTOS GARCIA MD Oct 08, 2016 20:34
--- NOTE | 2016-10-08 23:00 | CONS ---
Date/Time of Note Date/Time of Note DATE: 10/08/16 TIME: 22:59 Assessment/Plan Assessment/Plan Chief Complaint/Hosp Course ANEMIA N- CYTIC WITH N RDW MONITOR BLOOD COUNT CLOSELY OBSERVE FOR BLEEDING AND HEMOLYSIS PROCEED WITH W-UP acute kidney injury on CKD sepsis, dysphagia, aspiration PNA HTN Type II DM H/o recent CVA s/p tPA at [facility] atrial fibrillation with intermittently elevated HR Problems: Consultation Date/Type/Reason Admit Date/Time Oct 07, 2016 at 22:49 Date of Consultation: Oct 08, 2016 Type of Consultation: HEMEONC Reason for Consultation ANEMIA Referring Provider: YASIR HART MD Hx of Present Illness 89 F with PMhx of HTN, Type II DM, h/o atrial fibrillation, H/o CVA with left hemiplegia 2weeks ago, s/p TPA, was admitted to [facility], severe PAD with Caroid atherosclerosis, Dysphagia failed swallow evalatio, admitted for sepsis, Aspiration PNA and lactic acidosis. I has been consulted for ANEMIA Subjective hx not possible: pt non-verbal Psychological: confusion, No anxiety, No depression, No nl mood/affect, No no complaints, No other, No suicidal Past Medical History Medical History: diabetes, high cholesterol, hypertension, hypothyroid, other ( h/o CV Aiwth left weakness ) Past Surgical History Past Surgical Hx: no surgical history Family History Significant Family History: no pertinent family hx Social History Alcohol Use: none Smoking Status: Never smoker Drug Use: none Psychological: no complaints Past Medical History Medical History: diabetes, high cholesterol, hypertension, hypothyroid, other Past Surgical History Past Surgical Hx: no surgical history Social History Alcohol Use: none Smoking Status: Never smoker Drug Use: none Exam/Review of Systems Vital Signs Vitals Vital Signs Date Time Temp Pulse Resp B/P Pulse Ox O2 Delivery O2 Flow Rate FiO2 10/08/16 21:10 Nasal Cannula 2.0 10/08/16 20:06 93 10/08/16 19:48 98.4 18 141/64 100 Intake and Output 10/07/16 10/07/16 10/08/16 15:00 23:00 07:00 Intake Total 280 ml Output Total 750 ml Balance -470 ml Exam Constitutional: non-verbal Psych: no complaints Head: normocephalic Eyes: nl conjunctiva Respiratory: congested cough, crackles/rales, diminished breath sounds Cardiovascular: irregular rhythm, regular rate and rhythm Gastrointestinal: non-tender, soft Musculoskeletal: joint tenderness, muscle weakness, range of motion, swelling 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: lethargic, unresponsive Skin: nl turgor Lymph: nl lymph nodes Results Result Diagram: 10/08/16 0930 10/08/16 0915 Results 24 hrs Laboratory Tests Test 10/07/16 23:49 10/08/16 02:20 10/08/16 09:15 10/08/16 09:30 Lactic Acid Level 1.4 2.8 *H Sodium Level 146 H Potassium Level 4.3 Chloride Level 105 Carbon Dioxide Level 27 Anion Gap 18 H Blood Urea Nitrogen 60 H Creatinine 1.18 H Glucose Level 163 Calcium Level 8.2 L White Blood Count 7.8 Red Blood Count 3.02 L Hemoglobin 9.1 L Hematocrit 27.9 L Mean Corpuscular Volume 92.4 Mean Corpuscular Hemoglobin 30.1 Mean Corpuscular Hemoglobin Concent 32.6 Red Cell Distribution Width 12.8 Platelet Count 180 Mean Platelet Volume 11.1 H Neutrophils % 76.4 Lymphocytes % 10.8 L Monocytes % 11.2 H Eosinophils % 0.4 Basophils % 0.4 Nucleated Red Blood Cells % 0.0 Neutrophils # (Manual) 6 Lymphocytes # 0.8 Monocytes # 0.9 Eosinophils # 0.0 Basophils # 0.0 Nucleated Red Blood Cells # 0.0 Test 10/08/16 10:31 10/08/16 12:00 10/08/16 14:35 10/08/16 15:05 Lactic Acid Level 1.7 1.5 1.3 Urine Eosinophils % 0.0 Urine Random Creatinine 32.71 Urine Random Sodium 108 H Urine Protein/Creatinine Ratio 3.02 Urine Total Protein 99.0 H Test 10/08/16 19:23 10/08/16 21:41 Lactic Acid Level 0.9 1.1 Medications Medications Current Medications Ferrous Sulfate (Ferrous Sulfate (Ec)) 325 mg DAILY PO Last administered on 16:03; Admin Dose 325 MG; Start 10/08/16 at 09:00 Acetaminophen 325 mg 325 mg Q8 PRN [place] FEVER; Start 10/08/16 at 00:30 Dextrose/Sodium Chloride (D5-NS) 1,000 ml @ 60 mls/hr [id number] IV Last administered on 10/08/16 14:37; Admin Dose 60 MLS/HR; Start 10/08/16 at 00:30 Famotidine (Pepcid Iv) 20 mg DAILY IV Last administered on 10/08/16 10:19; Admin Dose 20 MG; Start 10/08/16 at 09:00 Metoprolol Tartrate (Lopressor) 25 mg BID NGT Last administered on 10/08/16 20 :33; Admin Dose 25 MG; Start 10/08/16 at 21:00 Clopidogrel Bisulfate (plaVIX) 75 mg DAILY GTB ; Start 10/09/16 at 09:00 TORRI HARLEY MD Oct 08, 2016 23:00
[2016-10-09] VITALS (12 sets, daily range): BP systolic 133–175; BP diastolic 64–82; PULSE 70–88; RESP 18–19
[2016-10-09] MEDS: ALBUTEROL 0.083% (NEB) 2.5 MG/3 ML AMP HHN SCH ×4 (00:21→23:17)
[2016-10-09] MEDS: IPRATROPIUM (NEB) 0.5 MG/2.5 ML AMP HHN SCH ×4 (00:21→23:16)
--- NOTE | 2016-10-09 05:36 | HKNOTE ---
DATE OF SERVICE: 10/08/2016 HISTORY OF PRESENT ILLNESS: Patient is an 89-year-old lady, who had recent left hemiplegia, status post thrombolytic therapy at [facility] on panorama CT, with the patient followed by weakness, decreased gait, dysphagia, nasogastric tube feeding, sepsis, aspiration, lactic acidosis, diabetes, lethargic. Patient with severe dysarthria, difficult to get a history from her. MEDICATIONS: Include Lopressor 25 mg, aspirin 325 mg once a day, Pepcid 20 mg once a day, albuterol inhaler, Atrovent inhaler, 25 as needed, Zofran 4 mg every 4 hours as needed. PHYSICAL EXAMINATION: GENERAL: Today, the patient is alert, awake. Does not follow any commands. Looks confused. HEART: Regular rate and rhythm. LUNGS: Equal breath sounds. ABDOMEN: Soft, relaxed, nondistended, nontender with PEG tube feeding. NEUROLOGIC: Cranial nerve exam: Cranial nerve 2: Pupils equal on both sides, reactive to light. Cranial nerves 3, 4 and 6: Extraocular muscles intact. Full Doll's maneuver. Cranial nerve 5 and 7: Intact corneal reflexes. Decreased nasal labial fold on the left side. Cranial nerve 8 through 12: Could not assess. MOTOR: Left side is 1/5. Right side is 2/5 with lack of effort. SENSATION, GAIT AND COORDINATION: Could not assess. ASSESSMENT AND PLAN: 1. Patient is 89 years old with underlying left hemiplegia. We will keep the patient on aspirin. I am not sure if the patient was on aspirin when she had the stroke or not, but from [place], the patient has thrombolytic cerebri, so I might discontinue the aspirin and start her on Plavix for stroke prophylaxis. 2. Left hemiplegia. Keep the patient under physical therapy due to the patient's cerebri. 3. Dysphagia. We will follow up the patient with percutaneous endoscopic gastrostomy tube feeding. 4. Dysarthria, probably second to the stroke and possible underlying disorder. 5. Diabetes type 2. Follow up the patient with nerve conduction study as an outpatient. Follow up the patient with AccuCheks and sliding scale insulin. Lethargy, probably secondary to underlying infection, like systemic inflammatory response 6. syndrome or pneumonia or urinary tract infection, with positive underlying acute encephalopathy. Again, thank you, Dr. Argueta, for asking me to see the patient with you. Dictated By: Roni Dixon MD /erwin/charbel /Document#: [id number]
[2016-10-09] MEDS: DEXTROSE 5%-0.9% NACL 1,000 ML IV SCH (05:55)
[2016-10-09] MEDS ORDERED: CLOPIDOGREL 75 MG TAB GTB SCH (09:00)
[2016-10-09 09:01] LABS: BASOPHIL # 0.1 10^3/ul (0.0-0.1); BASOPHILS % 0.8 % (0.0-2.0); EOSINOPHILS # 0.3 10^3/ul (0.0-0.5); EOSINOPHILS % 5.4 % (0.0-7.0); HEMATOCRIT 27.4 % (37.0-47.0); HEMOGLOBIN 8.8 g/dl (12.0-16.0); LYMPHOCYTES # 1.1 10^3/ul (0.8-2.9); LYMPHOCYTES % 17.8 % (15.0-51.0); MEAN CORPUSCULAR HGB CONC 32.1 g/dl (32.0-37.0); MEAN CORPUSCULAR VOLUME 93.5 fl (82.0-101.0); MEAN PLATELET VOLUME 10.6 fl (7.4-10.4); MONOCYTE # 0.4 10^3/ul (0.3-0.9); MONOCYTES % 7.3 % (0.0-11.0); NEUTROPHILS % 67.3 % (39.0-77.0); PLATELET COUNT 180 10^3/UL (140-415); RED BLOOD COUNT 2.93 10^6/ul (4.20-5.40); RED CELL DISTRIBUTION WIDTH 12.6 % (11.5-14.5); WHITE BLOOD COUNT 5.9 10^3/ul (4.8-10.8)
[2016-10-09 09:02] LABS: RETICULOCYTE COUNT % 1.9 % (0.5-1.5)
[2016-10-09 09:16] LABS: IRON 43 ug/dl (35-150)
[2016-10-09 09:18] LABS: ALBUMIN 2.9 g/dl (3.3-4.9); ALBUMIN/GLOBULIN RATIO 0.93; BILIRUBIN,INDIRECT 0.3 mg/dl (0-1.1); BILIRUBIN,TOTAL 0.3 mg/dl (0.2-1.3); CALCIUM 8.6 mg/dl (8.4-10.2); CREATININE 0.96 mg/dl (0.44-1.00); POTASSIUM 3.4 mmol/L (3.5-5.1)
[2016-10-09] MEDS: FAMOTIDINE 20 MG INJ IV SCH (09:20)
[2016-10-09] MEDS: FERROUS SULFATE (EC) 325 MG TAB PO SCH (09:21)
[2016-10-09] MEDS: METOPROLOL 25 MG TAB NGT SCH (09:21)
--- NOTE | 2016-10-09 09:23 | PN ---
Date/Time of Note Date/Time of Note DATE: 10/09/16 TIME: 09:16 Assessment/Plan VTE Prophylaxis VTE Prophylaxis Intervention: ambulation, anti-embolic stocking VTE Contraindication Reason: peripheral vascular disease Lines/Catheters IV Catheter Type (from Nrsg): Peripheral IV Central line still needed: No Urinary Cath still in place: Yes Reason Cath still needed: urinary retention Assessment/Plan Assessment/Plan 1.Sepsis-aspiration pneumonia and /or URI 2.Aspiration pneumonia NGT will keep one more day 3.Lactic acidosis 4.ATN with elevated creatinine1.07 now 1.12 5.CVA with left hemiplegia 2 weeks ago, s/p TPA 09/28; was in ICU of [facility] x 4-5 days d/c with NGT and heparine 6.Severe PAD with carotid bruits bilaterally 7.DM type 2 new onset 8.Dysphagia, dysarthria, s/p failed one swallowing evaluation 9.Lethargic 10.Iron deficiency 11.Anemia of chronic disease 12.Atrial fibrillation with controlled ventricular rate- unknown time duration 13.PTSD after acute stress months ago 14.S/P midline laparotomy with cholecystectomy 15.Hematuria and uti 16.Urinary incontinence 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 Subjective hx not possible: pt non-verbal, other (unable to communicate.) Constitutional: poor po (on ngt feeding.), requiring IVF, requiring O2 Exam/Review of Systems Vital Signs Vitals Vital Signs Date Time Temp Pulse Resp B/P Pulse Ox O2 Delivery O2 Flow Rate FiO2 10/09/16 08:22 3.0 10/09/16 08:22 80 20 98 Nasal Cannula 10/09/16 07:42 97.9 157/70 Intake and Output 10/08/16 10/08/16 10/09/16 15:00 23:00 07:00 Intake Total 700 ml Output Total 800 ml 1400 ml Balance -800 ml -700 ml Exam Constitutional: frail, non-verbal, other (Lethargic, arousable, expresses sounds which are not understandable.) Psych: No anxiety, No confusion, No depression, No nl mood/affect, No no complaints, No other, No suicidal Head: atraumatic, normocephalic Eyes: EOMI (looks to right side, unable to look left side.), PERRL, nl lids ENMT: nl external ears & nose, nl lips & teeth (no teeth.), other (NGT in place.), tympanic membranes, No intubated, No mucosa pink and moist, No nl nasal mucosa & septum Neck: bruits, jvd, nuchal rigidity, No masses, No non-tender, No other, No supple, No thyromegaly Respiratory: congested cough, diminished breath sounds, No clear to auscultation, No crackles/rales, No intercostal retraction, No labored breathing, No normal air movement, No other, No respirations, No tactile fremitus, No wheezing Cardiovascular: bruits, irregular rhythm, systolic murmur, No S3, No S4, No diastolic murmur, No edema, No gallop, No jugular venous distention (JVD), No murmurs/extra sounds, No nl pulses, No other, No regular rate and rhythm, No rub Gastrointestinal: soft Genitourinary - Female: other (Arevalo in place.), No CMT, No CVA tenderness, No nl adnexae, No nl external genitalia, No uterus Musculoskeletal: joint tenderness, muscle tone, muscle weakness, other (left weakness.) Extremities: calf tenderness, clubbing, tenderness, No cyanosis, No edema, No normal pulses, No other, No palpable cord, No pitting pedal edema 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: confused, focal weakness, lethargic, No [employer]AF[employer] OFFICER II-XII intact, No DTR's symmetric, No nl mental status, No nl speech, No nl strength, No numbness, No other, No reflexes, No unresponsive Skin: No diaphoresis, No ecchymosis, No laceration, No nl turgor, No other, No puncture, No rash or lesions Lymph: No enlarged, No nl lymph nodes, No nontender, No other Results Result Diagram: 10/08/1692910/08/16 0915 Results 24 hrs Laboratory Tests Test 10/08/16 09:30 10/08/16 10:31 10/08/16 12:00 10/08/16 14:35 White Blood Count 7.8 Red Blood Count 3.02 L Hemoglobin 9.1 L Hematocrit 27.9 L Mean Corpuscular Volume 92.4 Mean Corpuscular Hemoglobin 30.1 Mean Corpuscular Hemoglobin Concent 32.6 Red Cell Distribution Width 12.8 Platelet Count 180 Mean Platelet Volume 11.1 H Neutrophils % 76.4 Lymphocytes % 10.8 L Monocytes % 11.2 H Eosinophils % 0.4 Basophils % 0.4 Nucleated Red Blood Cells % 0.0 Neutrophils # (Manual) 6 Lymphocytes # 0.8 Monocytes # 0.9 Eosinophils # 0.0 Basophils # 0.0 Nucleated Red Blood Cells # 0.0 Lactic Acid Level 1.7 1.5 Urine Eosinophils % 0.0 Urine Random Creatinine 32.71 Urine Random Sodium 108 H Urine Protein/Creatinine Ratio 3.02 Urine Total Protein 99.0 H Test 10/08/16 15:05 10/08/16 19:23 10/08/16 21:41 10/09/16 08:00 Lactic Acid Level 1.3 0.9 1.1 White Blood Count Pending Red Blood Count Pending Hemoglobin Pending Hematocrit Pending Mean Corpuscular Volume Pending Mean Corpuscular Hemoglobin Pending Mean Corpuscular Hemoglobin Concent Pending Red Cell Distribution Width Pending Platelet Count Pending Mean Platelet Volume Pending Absolute Reticulocyte Count 0.056 Percent Reticulocyte Count 1.9 H Medications Medications Current Medications Ferrous Sulfate (Ferrous Sulfate (Ec)) 325 mg DAILY PO Last administered on 16:03; Admin Dose 325 MG; Start 10/08/16 at 09:00 Acetaminophen 325 mg 325 mg Q8 PRN [place] FEVER; Start 10/08/16 at 00:30 Dextrose/Sodium Chloride (D5-NS) 1,000 ml @ 60 mls/hr [id number] IV Last administered on 10/08/16 14:37; Admin Dose 60 MLS/HR; Start 10/08/16 at 00:30 Famotidine (Pepcid Iv) 20 mg DAILY IV Last administered on 10/08/16 10:19; Admin Dose 20 MG; Start 10/08/16 at 09:00 Metoprolol Tartrate (Lopressor) 25 mg BID NGT Last administered on 10/08/16 20 :33; Admin Dose 25 MG; Start 10/08/16 at 21:00 Clopidogrel Bisulfate (plaVIX) 75 mg DAILY GTB ; Start 10/09/16 at 09:00 YASIR HART MD Oct 09, 2016 09:23
[2016-10-09 09:26] LABS: TOTAL IRON BINDING CAPACITY 218 ug/dl (241-421)
[2016-10-09 09:46] LABS: THYROID STIMULATING HORMONE 2.33 MIU/L (0.465-4.680)
[2016-10-09 10:27] LABS: FOLATE 14.5 ng/ml (2.8-20.0)
[2016-10-09 11:19] LABS: CARCINOEMBRYONIC ANTIGEN 2.9 ng/ml (0.0-5.0)
--- NOTE | 2016-10-09 11:40 | CONS ---
Date/Time of Note Date/Time of Note DATE: 10/09/16 TIME: 11:39 Assessment/Plan Assessment/Plan Chief Complaint/Hosp Course 89-year-old female with a history of diabetes mellitus, hypertension, atrial fibrillation had a stroke a few days ago for which she was hospitalized at [facility]. Swallow study was done patient failed swallow study so NG tube was passed and was transferred to assisted. Patient was supposed to have a G-tube as outpatient but in the interim she aspirated became septic and was brought to the emergency room and admitted to [facility]. Patient is nonverbal. All the information gathered by reviewing the chart. Problems: Additional Assessment/Plan Assessment/Plan Additional Assessment/Plan 1. CVA status post TPA at [facility] 2. Left hemiplegia 3. Dysphagia 4. Prerenal azotemia 5. Anemia 6. Diabetes mellitus 7. Hypertension 8. Atrial fibrillation 9. Possible aspiration pneumonia 10. 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 Plan Continue antibiotic once patient is stable and if family agrees then will proceed with the PEG Consultation Date/Type/Reason Admit Date/Time Oct 07, 2016 at 22:49 Initial Consult Date 10/08/16 Type of Consultation: Cardiology Referring Provider: YASIR HART MD 24 HR Interval Summary Constitutional: no complaints Exam/Review of Systems Vital Signs Vitals Vital Signs Date Time Temp Pulse Resp B/P Pulse Ox O2 Delivery O2 Flow Rate FiO2 10/09/16 08:22 3.0 10/09/16 08:22 80 20 98 Nasal Cannula 10/09/16 07:42 97.9 157/70 Intake and Output 10/08/16 10/08/16 10/09/16 15:00 23:00 07:00 Intake Total 700 ml Output Total 800 ml 1400 ml Balance -800 ml -700 ml Exam Constitutional: alert, oriented, well developed Psych: nl mood/affect, no complaints Head: atraumatic, normocephalic Eyes: EOMI, PERRL, nl conjunctiva, nl lids, nl sclera ENMT: nl external ears & nose, nl lips & teeth, nl nasal mucosa & septum Neck: non-tender, supple Respiratory: clear to auscultation, normal air movement Cardiovascular: nl pulses, regular rate and rhythm Gastrointestinal: nl liver, spleen, non-tender, soft Musculoskeletal: nl extremities to inspection, nl gait and stance Extremities: normal pulses 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: CARDIAC CATH TECH II-XII intact, nl mental status, nl speech, nl strength Skin: nl turgor, No rash or lesions Lymph: nl lymph nodes Results Result Diagram: 10/09/16 0800 10/09/16 0800 Results 24 hrs Laboratory Tests Test 10/08/16 12:00 10/08/16 14:35 10/08/16 15:05 10/08/16 19:23 Lactic Acid Level 1.5 1.3 0.9 Urine Eosinophils % 0.0 Urine Random Creatinine 32.71 Urine Random Sodium 108 H Urine Protein/Creatinine Ratio 3.02 Urine Total Protein 99.0 H Test 10/08/16 21:41 10/09/16 08:00 Lactic Acid Level 1.1 White Blood Count 5.9 # Red Blood Count 2.93 L Hemoglobin 8.8 L Hematocrit 27.4 L Mean Corpuscular Volume 93.5 Mean Corpuscular Hemoglobin 30.0 Mean Corpuscular Hemoglobin Concent 32.1 Red Cell Distribution Width 12.6 Platelet Count 180 Mean Platelet Volume 10.6 H Neutrophils % 67.3 Lymphocytes % 17.8 Monocytes % 7.3 Eosinophils % 5.4 Basophils % 0.8 Nucleated Red Blood Cells % 0.0 Neutrophils # (Manual) 4 Lymphocytes # 1.1 Monocytes # 0.4 Eosinophils # 0.3 Basophils # 0.1 Nucleated Red Blood Cells # 0.0 Erythrocyte Sedimentation Rate 92 H Absolute Reticulocyte Count 0.056 Percent Reticulocyte Count 1.9 H Sodium Level 149 H Potassium Level 3.4 L Chloride Level 108 Carbon Dioxide Level 29 Anion Gap 15 Blood Urea Nitrogen 46 #H Creatinine 0.96 Glucose Level 138 Uric Acid 4.7 Calcium Level 8.6 Iron Level 43 Total Iron Binding Capacity 218 L Percent Iron Saturation 20 L Ferritin 431.0 H Total Bilirubin 0.3 Direct Bilirubin 0.00 Indirect Bilirubin 0.3 Aspartate Amino Transf (AST/SGOT) 41 Alanine Aminotransferase (ALT/SGPT) 57 Alkaline Phosphatase 76 Total Protein 6.0 L Albumin 2.9 L Globulin 3.10 Albumin/Globulin Ratio 0.93 Carcinoembryonic Antigen 2.9 Vitamin B12 Level > 1000 H Folate 14.5 Thyroid Stimulating Hormone (TSH) 2.330 Medications Medications Current Medications Ferrous Sulfate (Ferrous Sulfate (Ec)) 325 mg DAILY PO Last administered on t 09:21; Admin Dose 325 MG; Start 10/08/16 at 09:00 Acetaminophen 325 mg 325 mg Q8 PRN [place] FEVER; Start 10/08/16 at 00:30 Dextrose/Sodium Chloride (D5-NS) 1,000 ml @ 60 mls/hr [id number] IV Last administered on 10/08/16 14:37; Admin Dose 60 MLS/HR; Start 10/08/16 at 00:30 Famotidine (Pepcid Iv) 20 mg DAILY IV Last administered on 10/09/16 09:20; Admin Dose 20 MG; Start 10/08/16 at 09:00 Metoprolol Tartrate (Lopressor) 25 mg BID NGT Last administered on 10/09/16 09 :21; Admin Dose 25 MG; Start 10/08/16 at 21:00 Clopidogrel Bisulfate (plaVIX) 75 mg DAILY GTB Last administered on 10/09/16 09:21; Admin Dose 75 MG; Start 10/09/16 at 09:00 SANTOS GARCIA MD Oct 09, 2016 11:40
[2016-10-09] MEDS ORDERED: POTASSIUM CHLORIDE 20 MEQ POWDER FOR ORAL SOLN NGT ONE (12:00)
--- NOTE | 2016-10-09 12:00 | CONS ---
Date/Time of Note Date/Time of Note DATE: 10/09/16 TIME: 11:51 Assessment/Plan Assessment/Plan Additional Assessment/Plan This is a 89 F with PMhx of HTN, Type II DM, h/o atrial fibrillation, H/o CVA with left hemiplegia 2weeks ago, s/p TPA, was admitted to [facility] , severe PAD with Caroid atherosclerosis, Dysphagia failed swallow evalatio, admitted for sepsis, Aspiration PNA and lactic acidosis. Renal has been consulted for VERO on CKD< hyperkalemia 1. acute kidney injury on CKD, renal us showed -Atrophic right kidney. 2. sepsis, dysphagia, aspiration PNA 3. HTN 4. Type II DM 5. H/o recent CVA s/p tPA at [facility] 6. atrial fibrillation with intermittently elevated HR 7. Hypernatremia- change IVF- D51/2 NS at 60 cc/hr 8. Hypokalemia- replet KCL. 9. Anemia- Monitor cbc,transfuse PRN Continue current IV abx, continue IVF D51/2NS at 60 cc/hr pt need GI consult for G tube evaluation- gt placement pending, have NGT BP stable, urine studie, CK,uric acid has been orderd for work up of VERO onCKD will continue to follow up on patient. dW Dr Salvador moise Consultation Date/Type/Reason Admit Date/Time Oct 07, 2016 at 22:49 Initial Consult Date 10/08/16 Type of Consultation: Cardiology Referring Provider: YASIR HART MD 24 HR Interval Summary Subjective hx not possible: pt non-verbal Constitutional: requiring IVF Exam/Review of Systems Vital Signs Vitals Vital Signs Date Time Temp Pulse Resp B/P Pulse Ox O2 Delivery O2 Flow Rate FiO2 10/09/16 11:41 98.0 89 19 175/82 95 10/09/16 08:22 3.0 10/09/16 08:22 Nasal Cannula Intake and Output 10/08/16 10/08/16 10/09/16 15:00 23:00 07:00 Intake Total 700 ml Output Total 800 ml 1400 ml Balance -800 ml -700 ml Exam Constitutional: non-verbal, well developed Respiratory: clear to auscultation, diminished breath sounds (at bases) Cardiovascular: nl pulses, other ( irregular rhythm, regular rate and rhythm) Gastrointestinal: non-tender, soft Musculoskeletal: joint tenderness, muscle weakness, other, range of motion ( limited), swelling Extremities: normal pulses 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: confused Results Result Diagram: 10/09/16 0800 10/09/16 0800 Results 24 hrs Laboratory Tests Test 10/08/16 12:00 10/08/16 14:35 10/08/16 15:05 10/08/16 19:23 Lactic Acid Level 1.5 1.3 0.9 Urine Eosinophils % 0.0 Urine Random Creatinine 32.71 Urine Random Sodium 108 H Urine Protein/Creatinine Ratio 3.02 Urine Total Protein 99.0 H Test 10/08/16 21:41 10/09/16 08:00 Lactic Acid Level 1.1 White Blood Count 5.9 # Red Blood Count 2.93 L Hemoglobin 8.8 L Hematocrit 27.4 L Mean Corpuscular Volume 93.5 Mean Corpuscular Hemoglobin 30.0 Mean Corpuscular Hemoglobin Concent 32.1 Red Cell Distribution Width 12.6 Platelet Count 180 Mean Platelet Volume 10.6 H Neutrophils % 67.3 Lymphocytes % 17.8 Monocytes % 7.3 Eosinophils % 5.4 Basophils % 0.8 Nucleated Red Blood Cells % 0.0 Neutrophils # (Manual) 4 Lymphocytes # 1.1 Monocytes # 0.4 Eosinophils # 0.3 Basophils # 0.1 Nucleated Red Blood Cells # 0.0 Erythrocyte Sedimentation Rate 92 H Absolute Reticulocyte Count 0.056 Percent Reticulocyte Count 1.9 H Sodium Level 149 H Potassium Level 3.4 L Chloride Level 108 Carbon Dioxide Level 29 Anion Gap 15 Blood Urea Nitrogen 46 #H Creatinine 0.96 Glucose Level 138 Uric Acid 4.7 Calcium Level 8.6 Iron Level 43 Total Iron Binding Capacity 218 L Percent Iron Saturation 20 L Ferritin 431.0 H Total Bilirubin 0.3 Direct Bilirubin 0.00 Indirect Bilirubin 0.3 Aspartate Amino Transf (AST/SGOT) 41 Alanine Aminotransferase (ALT/SGPT) 57 Alkaline Phosphatase 76 Total Protein 6.0 L Albumin 2.9 L Globulin 3.10 Albumin/Globulin Ratio 0.93 Carcinoembryonic Antigen 2.9 Vitamin B12 Level > 1000 H Folate 14.5 Thyroid Stimulating Hormone (TSH) 2.330 Medications Medications Current Medications Ferrous Sulfate (Ferrous Sulfate (Ec)) 325 mg DAILY PO Last administered on t 09:21; Admin Dose 325 MG; Start 10/08/16 at 09:00 Acetaminophen 325 mg 325 mg Q8 PRN [place] FEVER; Start 10/08/16 at 00:30 Dextrose/Sodium Chloride (D5-NS) 1,000 ml @ 60 mls/hr [id number] IV Last administered on 10/08/16 14:37; Admin Dose 60 MLS/HR; Start 10/08/16 at 00:30 Famotidine (Pepcid Iv) 20 mg DAILY IV Last administered on 10/09/16 09:20; Admin Dose 20 MG; Start 10/08/16 at 09:00 Metoprolol Tartrate (Lopressor) 25 mg BID NGT Last administered on 10/09/16 09 :21; Admin Dose 25 MG; Start 10/08/16 at 21:00 MEHUL BENJAMIN Oct 09, 2016 12:00 MEHUL BENJAMIN Oct 09, 2016 12:00
[2016-10-09] MEDS: DEXTROSE 5%-0.45% NACL 1,000 ML IV SCH (12:58)
[2016-10-09] MEDS ORDERED: hydrALAzine 20 MG INJ IV PRN (13:30)
--- NOTE | 2016-10-09 14:49 | CONS ---
Date/Time of Note Date/Time of Note DATE: 10/09/16 TIME: 14:46 Assessment/Plan Assessment/Plan Chief Complaint/Hosp Course Chronic atrial fibrillation: Had rapid rates on admission, now better after IVF and antibiotics Aspiration PNA ARF: mildly elevated Cr Recent CVA s/p TPA DM HTN -metoprolol 50mg BID -restart either coumadin or Xarelto (unclear which pt is taking) -antibiotics per primary Problems: Consultation Date/Type/Reason Admit Date/Time Oct 07, 2016 at 22:49 Initial Consult Date 10/08/16 Type of Consultation: Cardiology Referring Provider: YASIR HART MD 24 HR Interval Summary Free Text/Dictation Much more awake today and able to follow commands/communicate. Grandson at bedside. Exam/Review of Systems Vital Signs Vitals Vital Signs Date Time Temp Pulse Resp B/P Pulse Ox O2 Delivery O2 Flow Rate FiO2 10/09/16 13:02 78 134/66 10/09/16 11:41 98.0 19 95 10/09/16 08:22 3.0 10/09/16 08:22 Nasal Cannula Intake and Output 10/08/16 10/08/16 10/09/16 15:00 23:00 07:00 Intake Total 700 ml Output Total 800 ml 1400 ml Balance -800 ml -700 ml Exam Constitutional: alert Psych: no complaints Head: atraumatic, normocephalic Neck: No jvd Respiratory: clear to auscultation, No crackles/rales Cardiovascular: systolic murmur (2/6 WILLIE), No edema, No regular rate and rhythm (IRIR) Gastrointestinal: non-tender, soft Musculoskeletal: nl extremities to inspection 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: nl mental status, No nl speech (slurred) Results Result Diagram: 10/09/16 0800 10/09/16 0800 Results 24 hrs Laboratory Tests Test 10/08/16 15:05 10/08/16 19:23 10/08/16 21:41 10/09/16 08:00 Lactic Acid Level 1.3 0.9 1.1 White Blood Count 5.9 # Red Blood Count 2.93 L Hemoglobin 8.8 L Hematocrit 27.4 L Mean Corpuscular Volume 93.5 Mean Corpuscular Hemoglobin 30.0 Mean Corpuscular Hemoglobin Concent 32.1 Red Cell Distribution Width 12.6 Platelet Count 180 Mean Platelet Volume 10.6 H Neutrophils % 67.3 Lymphocytes % 17.8 Monocytes % 7.3 Eosinophils % 5.4 Basophils % 0.8 Nucleated Red Blood Cells % 0.0 Neutrophils # (Manual) 4 Lymphocytes # 1.1 Monocytes # 0.4 Eosinophils # 0.3 Basophils # 0.1 Nucleated Red Blood Cells # 0.0 Erythrocyte Sedimentation Rate 92 H Absolute Reticulocyte Count 0.056 Percent Reticulocyte Count 1.9 H Sodium Level 149 H Potassium Level 3.4 L Chloride Level 108 Carbon Dioxide Level 29 Anion Gap 15 Blood Urea Nitrogen 46 #H Creatinine 0.96 Glucose Level 138 Uric Acid 4.7 Calcium Level 8.6 Iron Level 43 Total Iron Binding Capacity 218 L Percent Iron Saturation 20 L Ferritin 431.0 H Total Bilirubin 0.3 Direct Bilirubin 0.00 Indirect Bilirubin 0.3 Aspartate Amino Transf (AST/SGOT) 41 Alanine Aminotransferase (ALT/SGPT) 57 Alkaline Phosphatase 76 Total Protein 6.0 L Albumin 2.9 L Globulin 3.10 Albumin/Globulin Ratio 0.93 Carcinoembryonic Antigen 2.9 Vitamin B12 Level > 1000 H Folate 14.5 Thyroid Stimulating Hormone (TSH) 2.330 Medications Medications Current Medications Acetaminophen 325 mg 325 mg Q8 PRN [place] FEVER; Start 10/08/16 at 00:30 Dextrose/Sodium Chloride (D5-1/2ns) 1,000 ml @ 60 mls/hr [id number] IV Last administered on 10/09/16t 12:58; Admin Dose 60 MLS/HR; Start 10/09/16 at 12:00 Metoprolol Tartrate (Lopressor) 50 mg BID NGT ; Start 10/09/16 at 21:00 Hydralazine HCl (Apresoline) 10 mg Q6H PRN IV ELEVATED BLOOD PRESSURE; Start at 13:30 Ferrous Sulfate (Feosol Liquid Cup) 300 mg DAILY NGT ; Start 10/10/16 at 09:00 Famotidine (Pepcid) 20 mg DAILY NGT ; Start 10/10/16 at 09:00 ADAN BLAIR Oct 09, 2016 14:49
[2016-10-09] MEDS: METOPROLOL 50 MG TAB NGT SCH (21:30)
--- NOTE | 2016-10-09 22:12 | CONS ---
Date/Time of Note Date/Time of Note DATE: 10/09/16 TIME: 22:12 Assessment/Plan Assessment/Plan Chief Complaint/Hosp Course ANEMIA N- CYTIC WITH N RDW MONITOR BLOOD COUNT CLOSELY OBSERVE FOR BLEEDING AND HEMOLYSIS PROCEED WITH W-UP acute kidney injury on CKD sepsis, dysphagia, aspiration PNA HTN Type II DM H/o recent CVA s/p tPA at [facility] atrial fibrillation with intermittently elevated HR Problems: Consultation Date/Type/Reason Admit Date/Time Oct 07, 2016 at 22:49 Initial Consult Date 10/08/16 Type of Consultation: hemeonc Referring Provider: YASIR HART MD 24 HR Interval Summary Free Text/Dictation ALL NOTED NO BLEEDING NO HEMOLYSIS W-UP IN PROGRESS Exam/Review of Systems Vital Signs Vitals Vital Signs Date Time Temp Pulse Resp B/P Pulse Ox O2 Delivery O2 Flow Rate FiO2 10/09/16 21:15 98.6 88 18 166/72 98 10/09/16 20:30 3.0 10/09/16 20:30 Nasal Cannula Intake and Output 10/08/16 10/08/16 10/09/16 15:00 23:00 07:00 Intake Total 700 ml Output Total 800 ml 1400 ml Balance -800 ml -700 ml Exam Constitutional: non-verbal Psych: no complaints Head: normocephalic Eyes: nl conjunctiva Respiratory: congested cough, crackles/rales, diminished breath sounds Cardiovascular: irregular rhythm, regular rate and rhythm Gastrointestinal: non-tender, soft Musculoskeletal: joint tenderness, muscle weakness, range of motion, swelling 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: lethargic, unresponsive Skin: nl turgor Lymph: nl lymph nodes Results Result Diagram: 10/09/16 0800 10/09/16 0800 Results 24 hrs Laboratory Tests Test 10/09/16 08:00 White Blood Count 5.9 # Red Blood Count 2.93 L Hemoglobin 8.8 L Hematocrit 27.4 L Mean Corpuscular Volume 93.5 Mean Corpuscular Hemoglobin 30.0 Mean Corpuscular Hemoglobin Concent 32.1 Red Cell Distribution Width 12.6 Platelet Count 180 Mean Platelet Volume 10.6 H Neutrophils % 67.3 Lymphocytes % 17.8 Monocytes % 7.3 Eosinophils % 5.4 Basophils % 0.8 Nucleated Red Blood Cells % 0.0 Neutrophils # (Manual) 4 Lymphocytes # 1.1 Monocytes # 0.4 Eosinophils # 0.3 Basophils # 0.1 Nucleated Red Blood Cells # 0.0 Erythrocyte Sedimentation Rate 92 H Absolute Reticulocyte Count 0.056 Percent Reticulocyte Count 1.9 H Sodium Level 149 H Potassium Level 3.4 L Chloride Level 108 Carbon Dioxide Level 29 Anion Gap 15 Blood Urea Nitrogen 46 #H Creatinine 0.96 Glucose Level 138 Uric Acid 4.7 Calcium Level 8.6 Iron Level 43 Total Iron Binding Capacity 218 L Percent Iron Saturation 20 L Ferritin 431.0 H Total Bilirubin 0.3 Direct Bilirubin 0.00 Indirect Bilirubin 0.3 Aspartate Amino Transf (AST/SGOT) 41 Alanine Aminotransferase (ALT/SGPT) 57 Alkaline Phosphatase 76 Total Protein 6.0 L Albumin 2.9 L Globulin 3.10 Albumin/Globulin Ratio 0.93 Carcinoembryonic Antigen 2.9 Vitamin B12 Level > 1000 H Folate 14.5 Thyroid Stimulating Hormone (TSH) 2.330 Medications Medications Current Medications Acetaminophen 325 mg 325 mg Q8 PRN [place] FEVER; Start 10/08/16 at 00:30 Dextrose/Sodium Chloride (D5-1/2ns) 1,000 ml @ 60 mls/hr [id number] IV Last administered on 10/09/16 12:58; Admin Dose 60 MLS/HR; Start 10/09/16 at 12:00 Metoprolol Tartrate (Lopressor) 50 mg BID NGT Last administered on 10/09/16 21 :30; Admin Dose 50 MG; Start 10/09/16 at 21:00 Hydralazine HCl (Apresoline) 10 mg Q6H PRN IV ELEVATED BLOOD PRESSURE; Start at 13:30 Ferrous Sulfate (Feosol Liquid Cup) 300 mg DAILY NGT ; Start 10/10/16 at 09:00 Famotidine (Pepcid) 20 mg DAILY NGT ; Start 10/10/16 at 09:00 TORRI HARLEY MD Oct 09, 2016 22:12
[2016-10-10] VITALS (15 sets, daily range): BP systolic 126–186; BP diastolic 56–91; PULSE 63–89; RESP 18–25
[2016-10-10 02:03] LABS: PROTEIN, TOTAL 5.5 g/dL (6.1-8.1)
[2016-10-10] MEDS: DEXTROSE 5%-0.45% NACL 1,000 ML IV SCH (04:31)
[2016-10-10] MEDS: ALBUTEROL 0.083% (NEB) 2.5 MG/3 ML AMP HHN SCH ×3 (07:31→23:13)
[2016-10-10] MEDS: IPRATROPIUM (NEB) 0.5 MG/2.5 ML AMP HHN SCH ×3 (07:31→23:13)
[2016-10-10] MEDS: FAMOTIDINE 20 MG TAB NGT SCH (08:52)
[2016-10-10] MEDS: FERROUS SULFATE 60 MG/ML 5ML CUP NGT SCH (08:52)
[2016-10-10] MEDS: METOPROLOL 50 MG TAB NGT SCH ×2 (08:53→21:56)
--- NOTE | 2016-10-10 11:48 | PN ---
Date/Time of Note Date/Time of Note DATE: 10/10/16 TIME: 11:38 Assessment/Plan VTE Prophylaxis VTE Prophylaxis Intervention: other Lines/Catheters IV Catheter Type (from Nrsg): Peripheral IV Urinary Cath still in place: Yes Reason Cath still needed: urinary retention Assessment/Plan Assessment/Plan This is a 89 F with PMhx of HTN, Type II DM, h/o atrial fibrillation, H/o CVA with left hemiplegia 2weeks ago, s/p TPA, was admitted to [facility] , severe PAD with Caroid atherosclerosis, Dysphagia failed swallow evalatio, admitted for sepsis, Aspiration PNA and lactic acidosis. Renal has been consulted for VERO on CKD< hyperkalemia 1. acute kidney injury on CKD, renal us showed -Atrophic right kidney. 2. sepsis, dysphagia -on NGT. plan for GT placement am aspiration PNA - aspiration precautions 3. HTN 4. Type II DM 5. H/o recent CVA s/p tPA at [facility] 6. atrial fibrillation with intermittently elevated HR 7. Hypernatremia- change IVF- D51/2 NS at 60 cc/hr 8. Hypokalemia- BMP to fu 9. Anemia- Monitor cbc,transfuse PRN - UO 1225 L/24 HRS - Continue current IV abx, - continue IVF D51/2NS at 60 cc/hr -pt need GI consult for G tube evaluation- gt placement pending, have NGT -BP stable, - Iron panel - % saturation- 20 - Ferritin -431 -urine studies - Random Creatinine 32.71 - Random Na 108 - CK- 3.02 - urine Protein-99,0 - uric acid 4,7 will continue to follow up on patient. Hugh moise Subjective 24 Hr Interval Summary Free Text/Dictation NAD, remains on NC o2, seems comfortable, Hypernatremia- change IVF- D5 at 60 cc/hr - 500 ML X1, Hypokalemia- BMP to fu. plan for gt placement in am, dw staff Subjective hx not possible: pt non-verbal Constitutional: requiring IVF, requiring O2 Exam/Review of Systems Vital Signs Vitals Vital Signs Date Time Temp Pulse Resp B/P Pulse Ox O2 Delivery O2 Flow Rate FiO2 10/10/16 08:29 63 10/10/16 08:06 98.7 20 170/72 97 10/10/16 08:00 Nasal Cannula 2.0 Intake and Output 10/09/16 10/09/16 10/10/16 15:00 23:00 07:00 Intake Total 500 ml 1000 ml Output Total 1225 ml Balance 500 ml -225 ml Exam Constitutional: alert, non-verbal Respiratory: clear to auscultation, diminished breath sounds Cardiovascular: irregular rhythm, nl pulses, other (afib, H6 60) Gastrointestinal: non-tender, soft Musculoskeletal: nl extremities to inspection Extremities: normal pulses 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: lethargic, other (responses to touch.) Results Result Diagram: 10/09/16 0800 10/09/16 0800 Results 24 hrs Laboratory Tests Test 10/09/16 22:00 Stool Occult Blood NEGATIVE Medications Medications Current Medications Acetaminophen 325 mg 325 mg Q8 PRN [place] FEVER; Start 10/08/16 at 00:30 Dextrose/Sodium Chloride (D5-1/2ns) 1,000 ml @ 60 mls/hr [id number] IV Last administered on 10/10/16 04:31; Admin Dose 60 MLS/HR; Start 10/09/16 at 12:00 Metoprolol Tartrate (Lopressor) 50 mg BID NGT Last administered on 10/10/16 08 :53; Admin Dose 50 MG; Start 10/09/16 at 21:00 Hydralazine HCl (Apresoline) 10 mg Q6H PRN IV ELEVATED BLOOD PRESSURE; Start at 13:30 Ferrous Sulfate (Feosol Liquid Cup) 300 mg DAILY NGT Last administered on 08:52; Admin Dose 300 MG; Start 10/10/16 at 09:00 Famotidine (Pepcid) 20 mg DAILY NGT Last administered on 10/10/16 08:52; Admin Dose 20 MG; Start 10/10/16 at 09:00 MEHUL BENJAMIN Oct 10, 2016 11:48
[2016-10-10] MEDS ORDERED: DEXTROSE 5% 1,000 ML IV SCH (12:00)
[2016-10-10 12:52] LABS: CALCIUM 8.7 mg/dl (8.4-10.2); CREATININE 0.88 mg/dl (0.44-1.00); POTASSIUM 3.6 mmol/L (3.5-5.1)
--- NOTE | 2016-10-10 13:21 | CONS ---
Date/Time of Note Date/Time of Note DATE: 10/10/16 TIME: 13:19 Assessment/Plan Assessment/Plan Chief Complaint/Hosp Course Chronic atrial fibrillation: Had rapid rates on admission, now better after IVF and antibiotics. Controlled Aspiration PNA ARF: mildly elevated Cr Recent CVA s/p TPA DM HTN -metoprolol 50mg BID -add amlodipine 5mg -restart either coumadin or Xarelto (unclear which pt is taking) -antibiotics per primary Problems: Consultation Date/Type/Reason Admit Date/Time Oct 07, 2016 at 22:49 Initial Consult Date 10/08/16 Type of Consultation: Cardiology Referring Provider: YASIR HART MD 24 HR Interval Summary Free Text/Dictation No o/n events. HR controlled. BP high. Exam/Review of Systems Vital Signs Vitals Vital Signs Date Time Temp Pulse Resp B/P Pulse Ox O2 Delivery O2 Flow Rate FiO2 10/10/16 12:43 69 10/10/16 12:10 98.5 18 150/69 99 10/10/16 08:00 Nasal Cannula 2.0 Intake and Output 10/09/16 10/09/16 10/10/16 15:00 23:00 07:00 Intake Total 500 ml 1000 ml Output Total 1225 ml Balance 500 ml -225 ml Exam Constitutional: alert Neck: No jvd Respiratory: clear to auscultation, diminished breath sounds, No crackles/rales Cardiovascular: No edema, No regular rate and rhythm, No systolic murmur Gastrointestinal: non-tender, soft 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: No nl mental status, No nl speech Results Result Diagram: 10/09/16 0800 10/10/16 1216 Results 24 hrs Laboratory Tests Test 10/09/16 22:00 10/10/16 12:16 Stool Occult Blood NEGATIVE Sodium Level 140 Potassium Level 3.6 Chloride Level 106 Carbon Dioxide Level 27 Anion Gap 11 Blood Urea Nitrogen 32 #H Creatinine 0.88 Glucose Level 124 Calcium Level 8.7 Medications Medications Current Medications Acetaminophen (Tylenol Supp) 325 mg Q8 PRN [place] FEVER; Start 10/08/16 at 00:30 Metoprolol Tartrate (Lopressor) 50 mg BID NGT Last administered on 10/10/16t 08 :53; Admin Dose 50 MG; Start 10/09/16 at 21:00 Hydralazine HCl (Apresoline) 10 mg Q6H PRN IV ELEVATED BLOOD PRESSURE; Start at 13:30 Ferrous Sulfate (Feosol Liquid Cup) 300 mg DAILY NGT Last administered on 08:52; Admin Dose 300 MG; Start 10/10/16 at 09:00 Famotidine 20 mg 20 mg DAILY NGT Last administered on 10/10/16 08:52; Admin Dose 20 MG; Start 10/10/16 at 09:00 Dextrose (D5W) 500 ml @ 60 mls/hr Q8H20M IV ; Start 10/10/16 at 12:00; Stop at 04:39 Amlodipine Besylate (Norvasc) 5 mg DAILY PO ; Start 10/10/16 at 13:30; Status UNADAN ALDRICH Oct 10, 2016 13:20
--- NOTE | 2016-10-10 13:36 | RADRPT ---
Echocardiogram Report Patient Name: MELODY MADDOX Gender: Female Date: 1925 Study Date: 09-Oct-2016 Mothers Helper: VANE Location: [facility] Height(Cm): 152 Weight(Kg): 59 BSA: 1.58 Ref. Physician: ADAN SINGH Quality: Adequate Procedures: Transthoracic echocardiogram with 2D, M-Mode, and Doppler examination, poor subcostal images. Indications: Atrial Fibrillation. 2D/M Mode Doppler Measurement Value Normal Ranges Measurement Value Normal Ranges AoR Diam MM 2.7 cm AV Peak Kaden 1.1 m/sec LVIDd 2D 3.2 3.5 - 5.6 cm AV Peak PG 4.6 mmHg LVIDs 2D 2.1 2.1 - 4.1 cm LVOT Peak Kaden 0.7 m/sec LVPWd 2D 1.0 0.6 - 1.1 cm LVOT Peak PG 2.1 mmHg IVSd 2D 0.9 0.6 - 1.1 cm TR Peak Kaden 2.9 m/sec EDV 2D 42.2 cm3 TR Peak PG 33.1 mmHg ESV 2D 9.9 cm3 PV Peak Kaden 0.8 m/sec LA Dimen 2D 46.0 2.3 - 4.0 cm PV Peak PG 3.0 mmHg RVSP 36.1 mmHg Findings Left Ventricle: Normal left ventricular systolic function. Normal left ventricular cavity size. Normal left ventricular wall thickness. Ejection fraction is visually estimated at 60 %. Tissue Doppler/Mitral Doppler indices are indeterminate in this study due to the presence of atrial fibrillation. Right Ventricle: Normal right ventricular size. Left Atrium: There is severe enlargement of left atrium. LA Volume Index=46. Right Atrium: The right atrium is normal in size. Atrial Septum: Not well visualized. Mitral Valve: Moderate mitral annular calcification. Mild mitral valve regurgitation. Aortic Valve: No significant aortic stenosis or insufficiency. Aortic cusps appear mildly calcified. Tricuspid Valve: Normal appearance of the tricuspid valve. Estimated peak PA systolic pressure 36 mmHg. There is mild tricuspid regurgitation. Pulmonic Valve: Normal pulmonic valve appearance. There is trace pulmonic regurgitation. Pericardium: Normal pericardium with no significant pericardial effusion. Aorta: Normal aortic root. There is mild aortic root calcification. IVC: Normal size and normal respiratory collapse consistent with normal right atrial pressure. Pulmonary Artery: Normal pulmonary artery size. Conclusions 1.Normal left ventricular systolic function. Normal left ventricular cavity size. Normal left ventricular wall thickness. Ejection fraction is visually estimated at 60 %. Tissue Doppler/Mitral Doppler indices are indeterminate in this study due to the presence of atrial fibrillation. 2.Mild mitral valve regurgitation. 3.Estimated peak PA systolic pressure 36 mmHg based on RA pressure of 3 mmHg. Electronically Signed By: Adan Singh 10-Oct-2016 13:35:35 -0700 Patient Name: MELODY MADDOX Study Date: 09-Oct-[id number]
[2016-10-10] MEDS ORDERED: LIDOCAINE 2% (SDV) 5 ML INJ ONE (14:28)
[2016-10-10] MEDS ORDERED: PROPOFOL 20 ML ONE (14:28)
[2016-10-10] MEDS ORDERED: CEFAZOLIN 1 GM/50 ML (PMX) 50 ML IVPB ONE (14:30)
--- NOTE | 2016-10-10 15:52 | GILP ---
DATE OF PROCEDURE: PROCEDURE PERFORMED: Percutaneous endoscopy and gastrostomy. INDICATION: The patient is an 89-year-old female with CVA, undergoing this procedure for dysphagia and long-term enteral nutrition. The risks of the procedure and related complications and anesthetic risk, and alternatives discussed and informed consent was obtained. The patient was brought to the GI lab, sedated by Dr. Bustillos. After optimal sedation, Ancef was given. The scope was passed as much into the esophagus advanced further down into stomach and duodenum. By transillumination and digital palpation technique. Appropriate site was chosen in the anterior abdominal wall. The site was sterilized with chlorhexidine solution. Tube was evaluated initially by safe method. Small incision was made. Through that incision, trocar and stylet was 1st into stomach. Stylet was removed through the hollow tip of the catheter. Insertion wire was passed, which was noted transendoscopically passed the snare and the entire e procedure was completed by modified Ponsky technique. The patient was rescoped. The position of the internal bumper confirmed excellent bumper secured. Tolerated the procedure very well. IMPRESSION: Successful placement of gastrostomy tube done. PLAN: Is to resume feeding after 6 hours. All medication after 3 hours. Abdominal binder so the patient;s G-tube does not come out accidentally. Dictated By: Yair Sanabria MD /erwin/jessenia /Document#: [id number]
[2016-10-10] MEDS: AMLODIPINE 5 MG TAB PO SCH (18:26)
--- NOTE | 2016-10-10 19:58 | PN ---
Date/Time of Note Date/Time of Note DATE: 10/10/16 TIME: 19:48 Assessment/Plan VTE Prophylaxis VTE Prophylaxis Intervention: ambulation, anti-embolic stocking VTE Contraindication Reason: peripheral vascular disease Lines/Catheters IV Catheter Type (from Nrsg): Peripheral IV Central line still needed: No Urinary Cath still in place: Yes Reason Cath still needed: urinary retention Assessment/Plan Assessment/Plan 1.Sepsis-aspiration pneumonia and /or URI 2.Aspiration pneumonia NGT was removed. G tube placed. 3.Lactic acidosis 4.ATN with elevated creatinine1.07 now 1.12 5.CVA with left hemiplegia 2 weeks ago, s/p TPA 09/28; was in ICU of [facility] x 4-5 days d/c with NGT and heparine 6.Severe PAD with carotid bruits bilaterally 7.DM type 2 new onset 8.Dysphagia, dysarthria, s/p failed one swallowing evaluation 9.Lethargic 10.Iron deficiency 11.Anemia of chronic disease- drop of hct to 27- recheck in am. 12.Atrial fibrillation with controlled ventricular rate- unknown time duration 13.PTSD after acute stress months ago 14.S/P midline laparotomy with cholecystectomy 15.Hematuria and uti 16.Urinary incontinence 17.Osteoporosis; kyphosis 18.Multiple s/c ecchymoses inr 1.7 19 incomplete data Cont'd Hospitalization Reason: as above. Subjective 24 Hr Interval Summary Free Text/Dictation able to respond questions asked by the son. Noted that the room was cold. She asked for another blanket. Denaes nausea. Denies fever and chills. Subjective hx not possible: pt critical Constitutional: disoriented, improved, poor po, requiring IVF, requiring O2, No chills, No diaphoresis, No febrile, No no complaints, No other Eyes: redness, visual change, No discharge, No no complaints, No other, No pain ENT: other (ngt removed.) Respiratory: cough, shortness of breath, No no complaints, No other, No pain, No pleuritic pain, No sputum, No wheezing Cardiovascular: chest pain, lightheadedness, No edema, No no complaints, No orthopenea, No other, No palpitations, No paroxysmal nocturnal dyspnea Gastrointestinal: constipation, flatus, passing stool, No blood, No decreased appetite, No diarrhea, No nausea, No no complaints, No other, No pain, No vomiting Genitourinary: No bleeding, No discharge, No dysuria, No flank pain, No hematuria, No no complaints, No other Musculoskeletal: bone/joint pain, No back pain, No neck pain, No no complaints, No other, No restricted range of motion, No swelling Skin: No bruising, No erythema, No laceration, No no complaints, No other, No pruritis, No rash, No skin lesions Neurologic: focal-weakness (left hemiplegia persists.), No confusion, No dizziness, No headache, No no complaints, No other, No seizure, No syncope Endocrine: dry skin, No no complaints, No other, No polydypsia, No polyuria, No temp intolerance Lymphatic: No adenopathy, No lymphadema, No no complaints, No other, No tender nodes Psychological: anxiety, No confusion, No depression, No nl mood/affect, No no complaints, No other, No suicidal Exam/Review of Systems Vital Signs Vitals Vital Signs Date Time Temp Pulse Resp B/P Pulse Ox O2 Delivery O2 Flow Rate FiO2 10/10/16 16:30 75 10/10/16 16:19 98.0 20 168/77 100 10/10/16 15:27 3.0 10/10/16 15:27 Nasal Cannula Intake and Output 10/09/16 10/09/16 10/10/16 15:00 23:00 07:00 Intake Total 500 ml 1000 ml Output Total 1225 ml Balance 500 ml -225 ml Exam Constitutional: frail, well developed (malnurished.), No alert, No distress, No non-verbal, No obese, No oriented, No other Psych: No anxiety, No confusion, No depression, No nl mood/affect, No no complaints, No other, No suicidal Head: No atraumatic, No hematomas, No lacerations, No normocephalic, No other Eyes: EOMI, PERRL, other (left sided neglect.) ENMT: No intubated, No mucosa pink and moist, No nl external ears & nose, No nl lips & teeth, No nl nasal mucosa & septum, No other, No tympanic membranes Neck: bruits, No jvd, No masses, No non-tender, No nuchal rigidity, No other, No supple, No thyromegaly Respiratory: clear to auscultation, diminished breath sounds, normal air movement, No congested cough, No crackles/rales, No intercostal retraction, No labored breathing, No other, No respirations, No tactile fremitus, No wheezing Cardiovascular: bruits, murmurs/extra sounds, systolic murmur, No S3, No S4, No diastolic murmur, No edema, No gallop, No irregular rhythm, No jugular venous distention (JVD), No nl pulses, No other, No regular rate and rhythm, No rub Gastrointestinal: bowel sounds, other (g-tube placed. COvered by abdominal binder.), soft, No ascites, No distended, No firm, No hepatomegaly, No mass, No nl liver, spleen, No non-tender, No rebound or guarding, No splenomegaly, No surgical scars, No tender Genitourinary - Female: nl external genitalia, No CMT, No CVA tenderness, No nl adnexae, No other, No uterus Musculoskeletal: joint tenderness, muscle tone (decreased.), muscle weakness, range of motion, No nl extremities to inspection, No nl gait and stance, No other, No spine non-tender, No swelling Extremities: No calf tenderness, No clubbing, No cyanosis, No edema, No normal pulses, No other, No palpable cord, No pitting pedal edema, No tenderness 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: SMART GRID ENGINEER II-XII intact (able to verbalise, more clear speech which was totally not understandable at admission.), focal weakness, No DTR's symmetric, No confused, No lethargic, No nl mental status, No nl speech, No nl strength, No numbness, No other, No reflexes, No unresponsive Skin: nl turgor (decreased.), No diaphoresis, No ecchymosis, No laceration, No other, No puncture, No rash or lesions Lymph: enlarged, nl lymph nodes, nontender, other Results Result Diagram: 10/09/16 0800 10/10/16 1216 Results 24 hrs Laboratory Tests Test 10/09/16 22:00 10/10/16 12:16 Stool Occult Blood NEGATIVE Sodium Level 140 Potassium Level 3.6 Chloride Level 106 Carbon Dioxide Level 27 Anion Gap 11 Blood Urea Nitrogen 32 #H Creatinine 0.88 Glucose Level 124 Calcium Level 8.7 Medications Medications Current Medications Acetaminophen (Tylenol Supp) 325 mg Q8 PRN [place] FEVER; Start 10/08/16 at 00:30 Metoprolol Tartrate (Lopressor) 50 mg BID NGT Last administered on 10/10/16 08 :53; Admin Dose 50 MG; Start 10/09/16 at 21:00 Hydralazine HCl (Apresoline) 10 mg Q6H PRN IV ELEVATED BLOOD PRESSURE; Start at 13:30 Ferrous Sulfate (Feosol Liquid Cup) 300 mg DAILY NGT Last administered on 08:52; Admin Dose 300 MG; Start 10/10/16 at 09:00 Famotidine 20 mg 20 mg DAILY NGT Last administered on 10/10/16 08:52; Admin Dose 20 MG; Start 10/10/16 at 09:00 Dextrose (D5W) 500 ml @ 60 mls/hr Q8H20M IV Last administered on 10/10/16 12: 00; Admin Dose 60 MLS/HR; Start 10/10/16 at 12:00; Stop 10/11/16 at 04:39 Amlodipine Besylate (Norvasc) 5 mg DAILY PO Last administered on 10/10/16 18: 26; Admin Dose 5 MG; Start 10/10/16 at 13:30 Clopidogrel Bisulfate (plaVIX) 75 mg DAILY GTB ; Start 10/11/16 at 09:00 YASIR HART MD Oct 10, 2016 19:58
--- NOTE | 2016-10-10 21:49 | CONS ---
Date/Time of Note Date/Time of Note DATE: 10/10/16 TIME: 21:49 Assessment/Plan Assessment/Plan Chief Complaint/Hosp Course ANEMIA N- CYTIC WITH N RDW MONITOR BLOOD COUNT CLOSELY OBSERVE FOR BLEEDING AND HEMOLYSIS COMPLETE W-UP acute kidney injury on CKD sepsis, dysphagia, aspiration PNA HTN Type II DM H/o recent CVA s/p tPA at [facility] atrial fibrillation with intermittently elevated HR Problems: Consultation Date/Type/Reason Admit Date/Time Oct 07, 2016 at 22:49 Initial Consult Date 10/08/16 Type of Consultation: hemeonc Referring Provider: YASIR HART MD 24 HR Interval Summary Free Text/Dictation ALL NOTED NO BLEEDING Exam/Review of Systems Vital Signs Vitals Vital Signs Date Time Temp Pulse Resp B/P Pulse Ox O2 Delivery O2 Flow Rate FiO2 10/10/16 20:04 73 10/10/16 20:00 98.4 18 186/76 100 10/10/16 15:27 3.0 10/10/16 15:27 Nasal Cannula Intake and Output 10/09/16 10/09/16 10/10/16 15:00 23:00 07:00 Intake Total 500 ml 1000 ml Output Total 1225 ml Balance 500 ml -225 ml Exam Constitutional: non-verbal Psych: no complaints Head: normocephalic Eyes: nl conjunctiva Respiratory: congested cough, crackles/rales, diminished breath sounds Cardiovascular: irregular rhythm, regular rate and rhythm Gastrointestinal: non-tender, soft Musculoskeletal: joint tenderness, muscle weakness, range of motion, swelling 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: lethargic, unresponsive Skin: nl turgor Lymph: nl lymph nodes Results Result Diagram: 10/09/16 0800 10/10/16 1216 Results 24 hrs Laboratory Tests Test 10/09/16 22:00 10/10/16 12:16 Stool Occult Blood NEGATIVE Sodium Level 140 Potassium Level 3.6 Chloride Level 106 Carbon Dioxide Level 27 Anion Gap 11 Blood Urea Nitrogen 32 #H Creatinine 0.88 Glucose Level 124 Calcium Level 8.7 Medications Medications Current Medications Acetaminophen (Tylenol Supp) 325 mg Q8 PRN [place] FEVER; Start 10/08/16 at 00:30 Metoprolol Tartrate (Lopressor) 50 mg BID NGT Last administered on 10/10/16t 08 :53; Admin Dose 50 MG; Start 10/09/16 at 21:00 Hydralazine HCl (Apresoline) 10 mg Q6H PRN IV ELEVATED BLOOD PRESSURE; Start at 13:30 Ferrous Sulfate (Feosol Liquid Cup) 300 mg DAILY NGT Last administered on 08:52; Admin Dose 300 MG; Start 10/10/16 at 09:00 Famotidine 20 mg 20 mg DAILY NGT Last administered on 10/10/16 08:52; Admin Dose 20 MG; Start 10/10/16 at 09:00 Dextrose (D5W) 500 ml @ 60 mls/hr Q8H20M IV Last administered on 10/10/16 12: 00; Admin Dose 60 MLS/HR; Start 10/10/16 at 12:00; Stop 10/11/16 at 04:39 Amlodipine Besylate (Norvasc) 5 mg DAILY PO Last administered on 10/10/16 18: 26; Admin Dose 5 MG; Start 10/10/16 at 13:30 Clopidogrel Bisulfate (plaVIX) 75 mg DAILY GTB ; Start 10/11/16 at 09:00 Clonidine HCl (Catapres-Tts 1 Patch) 1 patch Q7D TRANSDERM ; Start 10/10/16 at 21:00 TORRI HARLEY MD Oct 10, 2016 21:49
[2016-10-10] MEDS: CLONIDINE 0.1 MG/24 HR PATCH TRANSDERM SCH (21:57)
[2016-10-11] VITALS (12 sets, daily range): BP systolic 111–143; BP diastolic 56–71; PULSE 73–90; RESP 16–18
--- NOTE | 2016-10-11 06:42 | CONS ---
DATE OF ADMISSION: 10/07/2016 DATE OF CONSULTATION: 10/10/2016 TYPE OF CONSULTATION: Neurology REFERRING PHYSICIAN: Roque Argueta MD HISTORY OF PRESENT ILLNESS: The patient is 89 years old. A patient with left-sided weakness status post thrombolytic therapy, diabetes, lactic acidosis, dysarthria. PHYSICAL EXAMINATION: GENERAL APPEARANCE: On exam today, the patient does not follow commands, opens her eyes . NEUROLOGIC: Cranial Nerves: II: With pupils equal on both sides, light nystagmus. III, IV, and : Intact for doll's maneuver. V and VII: Intact corneal reflexes. VIII-XII: Could not assess. Motor: Left side is 1/5, right side is 3/5 today. Gait, coordination, and sensation could be assessed. HEART: Regular rate and rhythm. Equal breath sounds. ABDOMEN: Soft, nondistended, and no tenderness. ASSESSMENT AND PLAN: The patient is 89 years old with: 1. Underlying left hemiplegia. Follow up the patient on Plavix 75 mg for prophylaxis. Follow up the patient with physical therapy. 2. Gait difficulty. We will follow up the patient with physical therapy. 3. Left arm weakness. Follow up the patient with occupational therapy. 4. Dysphagia. Follow up the patient with percutaneous endoscopic gastrostomy tube feeding. 5. Dysarthria. Probably secondary to stroke. The patient might be followed by Speech Therapy for more evaluation. 6. Diabetes, type 2. Follow up the patient with nerve conduction study, sliding scale insulin, and Accu-Chek. 7. Status post pneumonia and urinary tract infection. 8. Underlying acute encephalopathy. Probably secondary to toxic metabolic with infection. Again, thank you Dr. Argueta for asking me to see the patient with you. Dictated By: Roni Dixon MD /erwin/zahira /Document#: [id number]
--- NOTE | 2016-10-11 06:52 | CONS ---
DATE OF SERVICE: 10/10/2016 CHIEF COMPLAINT: The patient is 89 years old with underlying left hemiplegia, dysarthria, gait difficulty, stroke, diabetes. PHYSICAL EXAMINATION: GENERAL: On exam today, the patient really does not follow commands. NEUROLOGIC: Cranial nerve 2: Pupils equal on both sides, reactive to light. Cranial nerves 3, 4 and 6: Extraocular muscles intact. No nystagmus. Cranial nerve 5: Equal sensation to face. Cranial nerve 7: Decreased nasal labial fold on the left side. Cranial nerve 8 through 12: Could not assess. Left side with weakness. Sensation and gait: Could not assess. HEART: Regular rate and rhythm. LUNGS: Equal breath sounds. ABDOMEN: Soft, relaxed, nondistended, no tenderness. ASSESSMENT AND PLAN: 1. This patient is 89 years old with underlying stroke. I will start the patient on Plavix 75 mg and continue the aspirin and follow up the patient with physical therapy and acute rehab. 2. Gait difficulty. We will keep under fall precautions and physical therapy for now. 3. Dysphagia. For observation with percutaneous endoscopic gastrostomy tube feeding. 4. History of dysarthria, probably secondary to the stroke. We will follow up the patient with speech therapy. 5. Diabetes type 2. We will follow up the patient with a blood sugar. Again, thank you, Dr. Argueta, for asking me to see the patient with you. Dictated By: Roni Dixon MD /erwin/charbel /Document#: [id number]
--- NOTE | 2016-10-11 07:34 | CONS ---
Date/Time of Note Date/Time of Note DATE: 10/11/16 TIME: 07:31 Assessment/Plan Assessment/Plan Chief Complaint/Hosp Course Chronic atrial fibrillation: Had rapid rates on admission, now better after IVF and antibiotics. Controlled Aspiration PNA ARF: resolved Recent CVA s/p TPA DM HTN -metoprolol 50mg BID -amlodipine 5mg -started on plavix (would prefer anticoagulation with coumadin or NOAC with pt' s h/o stroke and high risk for recurrence) -antibiotics per primary Problems: Consultation Date/Type/Reason Admit Date/Time Oct 07, 2016 at 22:49 Initial Consult Date 10/08/16 Type of Consultation: Cardiology Referring Provider: YASIR HART MD Exam/Review of Systems Vital Signs Vitals Vital Signs Date Time Temp Pulse Resp B/P Pulse Ox O2 Delivery O2 Flow Rate FiO2 10/11/16 05:29 2.0 10/11/16 04:04 75 10/11/16 04:00 98.2 17 111/56 98 10/10/16 23:13 Nasal Cannula Exam Constitutional: No alert Head: atraumatic, normocephalic Neck: No jvd Respiratory: clear to auscultation, No crackles/rales Cardiovascular: regular rate and rhythm, No edema, No systolic murmur Gastrointestinal: non-tender, soft Musculoskeletal: nl extremities to inspection Extremities: normal pulses 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: No nl mental status Results Result Diagram: 10/09/16 0800 10/10/16 1216 Results 24 hrs Laboratory Tests Test 10/10/16 12:16 Sodium Level 140 Potassium Level 3.6 Chloride Level 106 Carbon Dioxide Level 27 Anion Gap 11 Blood Urea Nitrogen 32 #H Creatinine 0.88 Glucose Level 124 Calcium Level 8.7 Medications Medications Current Medications Acetaminophen (Tylenol Supp) 325 mg Q8 PRN [place] FEVER; Start 10/08/16 at 00:30 Metoprolol Tartrate (Lopressor) 50 mg BID NGT Last administered on 10/10/16 21 :56; Admin Dose 50 MG; Start 10/09/16 at 21:00 Hydralazine HCl (Apresoline) 10 mg Q6H PRN IV ELEVATED BLOOD PRESSURE; Start at 13:30 Ferrous Sulfate (Feosol Liquid Cup) 300 mg DAILY NGT Last administered on 08:52; Admin Dose 300 MG; Start 10/10/16 at 09:00 Famotidine (Pepcid) 20 mg DAILY NGT Last administered on 10/10/16 08:52; Admin Dose 20 MG; Start 10/10/16 at 09:00 Amlodipine Besylate (Norvasc) 5 mg DAILY PO Last administered on 10/10/16 18: 26; Admin Dose 5 MG; Start 10/10/16 at 13:30 Clopidogrel Bisulfate (plaVIX) 75 mg DAILY GTB ; Start 10/11/16 at 09:00 Clonidine HCl (Catapres-Tts 1 Patch) 1 patch Q7D TRANSDERM Last administered on 10/10/16 21:57; Admin Dose 1 PATCH; Start 10/10/16 at 21:00 ADAN BLAIR Oct 11, 2016 07:33
[2016-10-11] MEDS: ALBUTEROL 0.083% (NEB) 2.5 MG/3 ML AMP HHN SCH ×3 (07:36→23:39)
[2016-10-11] MEDS: IPRATROPIUM (NEB) 0.5 MG/2.5 ML AMP HHN SCH ×3 (07:36→23:39)
[2016-10-11 08:17] LABS: BASOPHILS % 0.5 % (0.0-2.0); EOSINOPHILS # 0.3 10^3/ul (0.0-0.5); EOSINOPHILS % 3.3 % (0.0-7.0); HEMATOCRIT 25.7 % (37.0-47.0); HEMOGLOBIN 8.5 g/dl (12.0-16.0); LYMPHOCYTES # 1.3 10^3/ul (0.8-2.9); LYMPHOCYTES % 16.2 % (15.0-51.0); MEAN CORPUSCULAR HEMOGLOBIN 29.1 pg (29.0-33.0); MEAN CORPUSCULAR HGB CONC 33.1 g/dl (32.0-37.0); MEAN PLATELET VOLUME 10.1 fl (7.4-10.4); MONOCYTE # 0.5 10^3/ul (0.3-0.9); MONOCYTES % 5.8 % (0.0-11.0); NEUTROPHILS % 70.3 % (39.0-77.0); PLATELET COUNT 209 10^3/UL (140-415); RED BLOOD COUNT 2.92 10^6/ul (4.20-5.40); RED CELL DISTRIBUTION WIDTH 12.3 % (11.5-14.5); WHITE BLOOD COUNT 8.2 10^3/ul (4.8-10.8)
[2016-10-11] MEDS: FAMOTIDINE 20 MG TAB NGT SCH (08:21)
[2016-10-11] MEDS: FERROUS SULFATE 60 MG/ML 5ML CUP NGT SCH (08:21)
[2016-10-11] MEDS: METOPROLOL 50 MG TAB NGT SCH ×2 (08:22→21:01)
[2016-10-11] MEDS: AMLODIPINE 5 MG TAB PO SCH (08:22)
[2016-10-11] MEDS: CLOPIDOGREL 75 MG TAB GTB SCH (08:22)
[2016-10-11 08:26] LABS: CALCIUM 8.6 mg/dl (8.4-10.2); CREATININE 0.84 mg/dl (0.44-1.00); POTASSIUM 3.4 mmol/L (3.5-5.1)
--- NOTE | 2016-10-11 08:28 | PN ---
Date/Time of Note Date/Time of Note DATE: 10/11/16 TIME: 08:13 Assessment/Plan VTE Prophylaxis VTE Prophylaxis Intervention: ambulation, anti-embolic stocking VTE Contraindication Reason: peripheral vascular disease Lines/Catheters IV Catheter Type (from Nrsg): Peripheral IV Central line still needed: No Urinary Cath still in place: Yes Reason Cath still needed: urinary retention Assessment/Plan Assessment/Plan 1.Sepsis-aspiration pneumonia and /or URI/uti-improving 2.Aspiration pneumonia NGT was removed. G tube placed-feeding started.. 3.Lactic acidosis- improved 4.ATN with elevated creatinine1.07 now 1.12- am labs pending. 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 6.Severe PAD with carotid bruits bilaterally 7.DM type 2 new onset 8.Dysphagia, dysarthria, s/p failed one swallowing evaluation- second evaluation pending 9.Lethargic- more alert. 10.Iron deficiency- continue supplementation. 11.Anemia of chronic disease- drop of hct to 27- am labs pending. 12.Atrial fibrillation with controlled ventricular rate- unknown time duration 13.PTSD after acute stress months ago 14.S/P midline laparotomy with cholecystectomy 15.Hematuria and uti 16.Urinary incontinence 17.Osteoporosis; kyphosis 18.Multiple s/c ecchymoses inr 1.7 19.Dysphagia- swallowing evaluation pending. Cont'd Hospitalization Reason: plan rehab. Subjective 24 Hr Interval Summary Free Text/Dictation No complains.The patient responds to verbal stimuli by opening eyes. She doesn't talk. With son being nearby she is very articulate and complaining of having not enough blankets. Constitutional: no complaints, requiring IVF, requiring O2, No chills, No diaphoresis, No disoriented, No febrile, No improved, No other , No poor po Eyes: no complaints, No discharge, No other, No pain, No redness, No visual change ENT: no complaints, No bleeding, No congestion, No discharge, No dysphagia, No other, No pain, No sore throat Respiratory: No cough, No no complaints, No other, No pain, No pleuritic pain, No shortness of breath, No sputum, No wheezing Cardiovascular: No chest pain, No edema, No lightheadedness, No no complaints, No orthopenea, No other, No palpitations, No paroxysmal nocturnal dyspnea Gastrointestinal: flatus, other (G tube side is ), passing stool Lymphatic: No adenopathy, No lymphadema, No no complaints, No other, No tender nodes Psychological: No anxiety, No confusion, No depression, No nl mood/affect, No no complaints, No other, No suicidal Exam/Review of Systems Vital Signs Vitals Vital Signs Date Time Temp Pulse Resp B/P Pulse Ox O2 Delivery O2 Flow Rate FiO2 10/11/16 08:09 73 10/11/16 08:08 99.1 18 143/60 100 10/11/16 07:38 21 10/11/16 05:29 2.0 10/10/16 23:13 Nasal Cannula Exam Constitutional: alert (lethargic,arausable neurose when alone.Feels more comfortable carlos eduardo presence of a family members.Now more cooperative then while in snf.), frail, non-verbal, No distress, No obese, No oriented, No other, No well developed Psych: No anxiety, No confusion, No depression, No nl mood/affect, No no complaints, No other, No suicidal Head: atraumatic, normocephalic, No hematomas, No lacerations, No other Eyes: EOMI (can't look to the left side.), No PERRL, No fundi, disc, No icteric, No nl conjunctiva, No nl lids, No nl sclera, No other ENMT: No intubated, No mucosa pink and moist, No nl external ears & nose, No nl lips & teeth, No nl nasal mucosa & septum, No other, No tympanic membranes Neck: bruits, jvd, No masses, No non-tender, No nuchal rigidity, No other, No supple, No thyromegaly Respiratory: clear to auscultation, normal air movement, No congested cough, No crackles/rales, No diminished breath sounds, No intercostal retraction, No labored breathing, No other, No respirations, No tactile fremitus, No wheezing Cardiovascular: bruits, edema (nonpitting.), irregular rhythm, systolic murmur , No S3, No S4, No diastolic murmur, No gallop, No jugular venous distention ( JVD), No murmurs/extra sounds, No nl pulses, No other, No regular rate and rhythm, No rub Gastrointestinal: bowel sounds, nl liver, spleen, other (G tube side intact. Feeding is tolerating well.), soft, surgical scars Musculoskeletal: joint tenderness, muscle tone, muscle weakness, No nl extremities to inspection, No nl gait and stance, No other, No range of motion, No spine non-tender, No swelling Extremities: edema (nonpitting.), No calf tenderness, No clubbing, No cyanosis, No normal pulses, No other, No palpable cord, No pitting pedal edema, No tenderness 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: ORE GRADER II-XII intact (ganga inmpairment.), focal weakness, nl speech, nl strength (left hemiplegia.), numbness, No DTR's symmetric, No confused, No lethargic, No nl mental status, No other , No reflexes, No unresponsive Skin: ecchymosis, nl turgor (decreased.) Results Result Diagram: 10/09/16 0800 10/10/16 1216 Results 24 hrs Laboratory Tests Test 10/10/16 12:16 10/11/16 07:35 Sodium Level 140 Potassium Level 3.6 Chloride Level 106 Carbon Dioxide Level 27 Anion Gap 11 Blood Urea Nitrogen 32 #H Creatinine 0.88 Glucose Level 124 Calcium Level 8.7 White Blood Count Pending Red Blood Count Pending Hemoglobin Pending Hematocrit Pending Mean Corpuscular Volume Pending Mean Corpuscular Hemoglobin Pending Mean Corpuscular Hemoglobin Concent Pending Red Cell Distribution Width Pending Platelet Count Pending Mean Platelet Volume Pending Medications Medications Current Medications Acetaminophen (Tylenol Supp) [address] FEVER; Start 10/08/16 at 00:30 Metoprolol Tartrate (Lopressor) 50 mg BID NGT Last administered on 10/10/16 21 :56; Admin Dose 50 MG; Start 10/09/16 at 21:00 Hydralazine HCl (Apresoline) 10 mg Q6H PRN IV ELEVATED BLOOD PRESSURE; Start at 13:30 Ferrous Sulfate (Feosol Liquid Cup) 300 mg DAILY NGT Last administered on 08:52; Admin Dose 300 MG; Start 10/10/16 at 09:00 Famotidine (Pepcid) 20 mg DAILY NGT Last administered on 10/10/16 08:52; Admin Dose 20 MG; Start 10/10/16 at 09:00 Amlodipine Besylate (Norvasc) 5 mg DAILY PO Last administered on 10/10/16 18: 26; Admin Dose 5 MG; Start 10/10/16 at 13:30 Clopidogrel Bisulfate (plaVIX) 75 mg DAILY GTB ; Start 10/11/16 at 09:00 Clonidine HCl (Catapres-Tts 1 Patch) 1 patch Q7D TRANSDERM Last administered on 10/10/16 21:57; Admin Dose 1 PATCH; Start 10/10/16 at 21:00 YASIR HART MD Oct 11, 2016 08:28
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
--- NOTE | 2016-10-11 12:00 | RADRPT ---
PROCEDURE: XR Chest AP portable CLINICAL INDICATION: Pneumonia TECHNIQUE: An AP portable radiograph of the chest was submitted. COMPARISON: 10/07/2016 FINDINGS: Support Hardware: The enteric catheter is in removed since the previous. Cardiovascular: The cardiovascular silhouette appears unremarkable except for mild atherosclerotic c hanges involving the aorta. Lung Mcneill: The patient is again taken a poor inspiratory effort compressing lung parenchyma exagge rating the bibasilar interstitial markings. No alveolar infiltrate is appreciable. Pleural Spaces: No pneumothorax or pleural effusion is identified. Osseous Structures: The osseous structures appear intact. Soft Tissues: The soft tissues appear generous. IMPRESSION: 1. Atherosclerotic aorta 2. Poor inspiratory effort compresses lung parenchyma. No discrete alveolar infiltrate or effusion is identified. Physician Juleinne Date Time Electronically viewed and signed by Physician Julienne on 10/11/2016 12:00 /
--- NOTE | 2016-10-11 12:18 | RADRPT ---
PROCEDURE: Carotid Doppler ultrasound CLINICAL INDICATION: Chronic airways TECHNIQUE: Carotid duplex criteria: Multiple real time, ho scale, and color flow and spectral w aveform analysis Doppler ultrasound images of the carotid bifurcations were obtained. Measurements of carotid stenosis is based on peak systolic and diastolic velocity parameters that correlate the r esidual internal carotid diameter with [place] symptomatic carotid endarterectomy trial (NASC ET) based stenosis levels. COMPARISON: None. FINDINGS: On the right, there is heterogeneous irregular plaque at the internal carotid artery bulb . Visual estimate of the plaque is less than 50%. The peak systolic velocities are: Proximal CCA: 47.3 cm/sec. Distal CCA: 40.0 cm/sec. Proximal ICA/bulb: 51.2 cm/sec. Mid ICA: 60 point a cm/sec. Distal ICA: 52.3 cm/sec. ICA/CCA ratio: 1.5. There is no spectral broadening . The external carotid artery is patent. The vertebral artery has antegrade flow. On the left, there is heterogeneous irregular plaque at the internal carotid artery bulb . Visual e stimate of the plaque is less than 50%. The peak systolic velocities are: Proximal CCA: 49.5 cm/sec. Distal CCA: 52.8 cm/sec. Proximal ICA/bulb: 60.3 cm/sec. Mid ICA: 59.4 cm/sec. Distal ICA: 56.5 cm/sec. ICA/CCA ratio: 1.1. There is no spectral broadening . The external carotid artery is patent. The vertebral artery has antegrade flow. IMPRESSION: 1. Less than 50% stenosis of the right internal carotid artery. 2. Less than 50% stenosis of the left internal carotid artery. 3. Antegrade flow in the vertebral arteries. PRIMARY PARAMETERS ADDITIONAL PARAMETERS DEGREE OF STENOSIS: ICA PSV cm/s PLAQUE ESTIMATE % ICA/CCA PSV RATIO ICA E DV cm/s NORMAL <125 cm/s NONE < 2.0 < 40 cm/s < 50% >125 cm/s < 50% > 2.0 > 40 cm/s 50% - 69% 125 -230 cm/s > 50% 2.0 - 4.0 40 - 100 cm/s >70% < OCCLUSION > 230 cm/s > 70% > 4.0 > 100 cm/s TOTAL OCCLUSION UNDETECTABLE VISIBLE PLAQUE 100% N/A N/A Tracy Cao, Physician Date Time Electronically viewed and signed by Tracy Cao Physician on 10/11/2016 12:18 ANUEL/
[2016-10-11] MEDS ORDERED: POTASSIUM CHLORIDE (SR) 20 MEQ TAB PO STA (14:42)
--- NOTE | 2016-10-11 14:49 | CONS ---
Date/Time of Note Date/Time of Note DATE: 10/11/16 TIME: 14:44 Assessment/Plan Assessment/Plan Chief Complaint/Hosp Course 89 F with PMhx of HTN, Type II DM, h/o atrial fibrillation, H/o CVA with left hemiplegia 2weeks ago, s/p TPA, was admitted to [facility], severe PAD with Caroid atherosclerosis, Dysphagia failed swallow evalatio, admitted for sepsis, Aspiration PNA and lactic acidosis. Renal has been consulted for VERO on CKD< hyperkalemia Problems: Additional Assessment/Plan 1. acute kidney injury on CKD, renal us showed -Atrophic right kidney. 2. sepsis, possibley due to Aspiration PNA s/p G tube placement now 3. HTN 4. Type II DM 5. H/o recent CVA s/p tPA at [facility] 6. atrial fibrillation with intermittently elevated HR 7. Hypernatremia- change IVF- D51/2 NS at 60 cc/hr 8. Hypokalemia- BMP to fu 9. Anemia- Monitor cbc,transfuse PRN d/c IVF, Cr imrpoved, to normal ,K low, KCL 40mEQ PO X 1 dose today Urine studies, and Uric acid unremarkable BP stable renal us showed -Atrophic right kidney. will continue to follow up on patient need acute rehab evaluation Consultation Date/Type/Reason Admit Date/Time Oct 07, 2016 at 22:49 Initial Consult Date 10/08/16 Type of Consultation: NEPHROLOGY Reason for Consultation acute kidney injury Referring Provider: YASIR HART MD 24 HR Interval Summary Free Text/Dictation K low, BP stable . comfortable, on G tube feeding, IVF stopped today Exam/Review of Systems Vital Signs Vitals Vital Signs Date Time Temp Pulse Resp B/P Pulse Ox O2 Delivery O2 Flow Rate FiO2 10/11/16 12:13 88 10/11/16 11:59 98.1 18 143/71 100 10/11/16 08:05 Nasal Cannula 2.0 10/11/16 07:38 21 Exam Constitutional: more awake today Respiratory: congested cough, crackles/rales, diminished breath sounds Cardiovascular: irregular rhythm, regular rate and rhythm Gastrointestinal: non-tender, soft, + g tube in place, site clear Musculoskeletal: joint tenderness, muscle weakness, range of motion, swelling 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: not cooperative Results Result Diagram: 10/11/16 0735 10/11/16 0735 Results 24 hrs Laboratory Tests Test 10/11/16 07:35 White Blood Count 8.2 # Red Blood Count 2.92 L Hemoglobin 8.5 L Hematocrit 25.7 L Mean Corpuscular Volume 88.0 Mean Corpuscular Hemoglobin 29.1 Mean Corpuscular Hemoglobin Concent 33.1 Red Cell Distribution Width 12.3 Platelet Count 209 Mean Platelet Volume 10.1 Neutrophils % 70.3 Lymphocytes % 16.2 Monocytes % 5.8 Eosinophils % 3.3 Basophils % 0.5 Nucleated Red Blood Cells % 0.0 Neutrophils # (Manual) 6 Lymphocytes # 1.3 Monocytes # 0.5 Eosinophils # 0.3 Basophils # 0.0 Nucleated Red Blood Cells # 0.0 Sodium Level 134 L Potassium Level 3.4 L Chloride Level 101 Carbon Dioxide Level 24 Anion Gap 12 Blood Urea Nitrogen 25 H Creatinine 0.84 Glucose Level 136 Calcium Level 8.6 Medications Medications Current Medications Acetaminophen (Tylenol Supp) 325 mg Q8 PRN [place] FEVER; Start 10/08/16 at 00:30 Metoprolol Tartrate (Lopressor) 50 mg BID NGT Last administered on 10/11/16 08 :22; Admin Dose 50 MG; Start 10/09/16 at 21:00 Hydralazine HCl (Apresoline) 10 mg Q6H PRN IV ELEVATED BLOOD PRESSURE; Start at 13:30 Ferrous Sulfate (Feosol Liquid Cup) 300 mg DAILY NGT Last administered on 08:21; Admin Dose 300 MG; Start 10/10/16 at 09:00 Famotidine (Pepcid) 20 mg DAILY NGT Last administered on 10/11/16 08:21; Admin Dose 20 MG; Start 10/10/16 at 09:00 Amlodipine Besylate (Norvasc) 5 mg DAILY PO Last administered on 10/11/16 08: 22; Admin Dose 5 MG; Start 10/10/16 at 13:30 Clopidogrel Bisulfate (plaVIX) 75 mg DAILY GTB Last administered on 10/11/16 08:22; Admin Dose 75 MG; Start 10/11/16 at 09:00 Clonidine HCl (Catapres-Tts 1 Patch) 1 patch Q7D TRANSDERM Last administered on 10/10/16 21:57; Admin Dose 1 PATCH; Start 10/10/16 at 21:00 MAINOR HUTCHISON MD Oct 11, 2016 14:49
[2016-10-11] MEDS ORDERED: POTASSIUM CHLORIDE 20 MEQ POWDER FOR ORAL SOLN GTB SCH (15:00)
--- NOTE | 2016-10-11 21:26 | CONS ---
Date/Time of Note Date/Time of Note DATE: 10/11/16 TIME: 21:22 Assessment/Plan Assessment/Plan Chief Complaint/Hosp Course 89-year-old female with a history of diabetes mellitus, hypertension, atrial fibrillation had a stroke a few days ago for which she was hospitalized at [facility]. Swallow study was done patient failed swallow study so NG tube was passed and was transferred to assisted. Patient was supposed to have a G-tube as outpatient but in the interim she aspirated became septic and was brought to the emergency room and admitted to [facility]. Patient is nonverbal. All the information gathered by reviewing the chart. Problems: Additional Assessment/Plan Additional Assessment/Plan 1. CVA status post TPA at [facility] 2. Left hemiplegia 3. Dysphagia 4. Prerenal azotemia 5. Anemia 6. Diabetes mellitus 7. Hypertension 8. Atrial fibrillation 9. Possible aspiration pneumonia 10. 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 11.s/p PEG Plan increase feeding slowly aspiration precaution continue present care Consultation Date/Type/Reason Admit Date/Time Oct 07, 2016 at 22:49 Initial Consult Date 10/08/16 Type of Consultation: NEPHROLOGY Referring Provider: YASIR HART MD 24 HR Interval Summary Constitutional: improved, no complaints Exam/Review of Systems Vital Signs Vitals Vital Signs Date Time Temp Pulse Resp B/P Pulse Ox O2 Delivery O2 Flow Rate FiO2 10/11/16 20:02 90 10/11/16 16:22 98.0 16 115/62 100 10/11/16 16:07 21 10/11/16 08:05 Nasal Cannula 2.0 Exam Constitutional: alert, oriented, well developed Psych: nl mood/affect, no complaints Head: atraumatic, normocephalic Eyes: EOMI, PERRL, nl conjunctiva, nl lids, nl sclera ENMT: nl external ears & nose, nl lips & teeth, nl nasal mucosa & septum Neck: non-tender, supple Respiratory: clear to auscultation, normal air movement Cardiovascular: nl pulses, regular rate and rhythm Gastrointestinal: nl liver, spleen, non-tender, soft Musculoskeletal: nl extremities to inspection, nl gait and stance Extremities: normal pulses 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: PRODUCTION SCHEDULER II-XII intact, nl mental status, nl speech, nl strength Skin: nl turgor, No rash or lesions Lymph: nl lymph nodes Results Result Diagram: 10/11/16 0735 10/11/16 0735 Results 24 hrs Laboratory Tests Test 10/11/16 07:35 White Blood Count 8.2 # Red Blood Count 2.92 L Hemoglobin 8.5 L Hematocrit 25.7 L Mean Corpuscular Volume 88.0 Mean Corpuscular Hemoglobin 29.1 Mean Corpuscular Hemoglobin Concent 33.1 Red Cell Distribution Width 12.3 Platelet Count 209 Mean Platelet Volume 10.1 Neutrophils % 70.3 Lymphocytes % 16.2 Monocytes % 5.8 Eosinophils % 3.3 Basophils % 0.5 Nucleated Red Blood Cells % 0.0 Neutrophils # (Manual) 6 Lymphocytes # 1.3 Monocytes # 0.5 Eosinophils # 0.3 Basophils # 0.0 Nucleated Red Blood Cells # 0.0 Sodium Level 134 L Potassium Level 3.4 L Chloride Level 101 Carbon Dioxide Level 24 Anion Gap 12 Blood Urea Nitrogen 25 H Creatinine 0.84 Glucose Level 136 Calcium Level 8.6 Medications Medications Current Medications Acetaminophen (Tylenol Supp) 325 mg Q8 PRN [place] FEVER; Start 10/08/16 at 00:30 Metoprolol Tartrate (Lopressor) 50 mg BID NGT Last administered on 10/11/16 21 :01; Admin Dose 50 MG; Start 10/09/16 at 21:00 Hydralazine HCl (Apresoline) 10 mg Q6H PRN IV ELEVATED BLOOD PRESSURE; Start at 13:30 Ferrous Sulfate (Feosol Liquid Cup) 300 mg DAILY NGT Last administered on 08:21; Admin Dose 300 MG; Start 10/10/16 at 09:00 Famotidine (Pepcid) 20 mg DAILY NGT Last administered on 10/11/16 08:21; Admin Dose 20 MG; Start 10/10/16 at 09:00 Amlodipine Besylate (Norvasc) 5 mg DAILY PO Last administered on 10/11/16 08: 22; Admin Dose 5 MG; Start 10/10/16 at 13:30 Clopidogrel Bisulfate (plaVIX) 75 mg DAILY GTB Last administered on 10/11/16 08:22; Admin Dose 75 MG; Start 10/11/16 at 09:00 Clonidine HCl (Catapres-Tts 1 Patch) 1 patch Q7D TRANSDERM Last administered on 10/10/16 21:57; Admin Dose 1 PATCH; Start 10/10/16 at 21:00 SANTOS GARCIA MD Oct 11, 2016 21:25
--- NOTE | 2016-10-11 23:31 | CONS ---
Date/Time of Note Date/Time of Note DATE: 10/11/16 TIME: 23:31 Assessment/Plan Assessment/Plan Chief Complaint/Hosp Course ANEMIA N- CYTIC WITH N RDW WITH DROP H/H DURING HOSPITALIZATION MONITOR BLOOD COUNT CLOSELY OBSERVE FOR BLEEDING AND HEMOLYSIS + COMPONENT ACD CHECK BLOOD COUNT IN AM acute kidney injury on CKD sepsis, dysphagia, aspiration PNA HTN Type II DM H/o recent CVA s/p tPA at [facility] atrial fibrillation with intermittently elevated HR Problems: Consultation Date/Type/Reason Admit Date/Time Oct 07, 2016 at 22:49 Initial Consult Date 10/08/16 Type of Consultation: hemeonc Referring Provider: YASIR HART MD 24 HR Interval Summary Free Text/Dictation ALL NOTED Exam/Review of Systems Vital Signs Vitals Vital Signs Date Time Temp Pulse Resp B/P Pulse Ox O2 Delivery O2 Flow Rate FiO2 10/11/16 20:02 90 10/11/16 20:00 98.6 18 119/58 99 10/11/16 20:00 Nasal Cannula 2.0 10/11/16 16:07 21 Exam Constitutional: non-verbal Psych: no complaints Head: normocephalic Eyes: nl conjunctiva Respiratory: congested cough, crackles/rales, diminished breath sounds Cardiovascular: irregular rhythm, regular rate and rhythm Gastrointestinal: non-tender, soft Musculoskeletal: joint tenderness, muscle weakness, range of motion, swelling 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: lethargic, unresponsive Skin: nl turgor Lymph: nl lymph nodes Results Result Diagram: 10/11/16 0735 10/11/16 0735 Results 24 hrs Laboratory Tests Test 10/11/16 07:35 White Blood Count 8.2 # Red Blood Count 2.92 L Hemoglobin 8.5 L Hematocrit 25.7 L Mean Corpuscular Volume 88.0 Mean Corpuscular Hemoglobin 29.1 Mean Corpuscular Hemoglobin Concent 33.1 Red Cell Distribution Width 12.3 Platelet Count 209 Mean Platelet Volume 10.1 Neutrophils % 70.3 Lymphocytes % 16.2 Monocytes % 5.8 Eosinophils % 3.3 Basophils % 0.5 Nucleated Red Blood Cells % 0.0 Neutrophils # (Manual) 6 Lymphocytes # 1.3 Monocytes # 0.5 Eosinophils # 0.3 Basophils # 0.0 Nucleated Red Blood Cells # 0.0 Sodium Level 134 L Potassium Level 3.4 L Chloride Level 101 Carbon Dioxide Level 24 Anion Gap 12 Blood Urea Nitrogen 25 H Creatinine 0.84 Glucose Level 136 Calcium Level 8.6 Medications Medications Current Medications Acetaminophen (Tylenol Supp) 325 mg Q8 PRN [place] FEVER; Start 10/08/16 at 00:30 Metoprolol Tartrate (Lopressor) 50 mg BID NGT Last administered on 10/11/16 21 :01; Admin Dose 50 MG; Start 10/09/16 at 21:00 Hydralazine HCl (Apresoline) 10 mg Q6H PRN IV ELEVATED BLOOD PRESSURE; Start at 13:30 Ferrous Sulfate (Feosol Liquid Cup) 300 mg DAILY NGT Last administered on 08:21; Admin Dose 300 MG; Start 10/10/16 at 09:00 Famotidine (Pepcid) 20 mg DAILY NGT Last administered on 10/11/16 08:21; Admin Dose 20 MG; Start 10/10/16 at 09:00 Amlodipine Besylate (Norvasc) 5 mg DAILY PO Last administered on 10/11/16 08: 22; Admin Dose 5 MG; Start 10/10/16 at 13:30 Clopidogrel Bisulfate (plaVIX) 75 mg DAILY GTB Last administered on 10/11/16 08:22; Admin Dose 75 MG; Start 10/11/16 at 09:00 Clonidine HCl (Catapres-Tts 1 Patch) 1 patch Q7D TRANSDERM Last administered on 10/10/16 21:57; Admin Dose 1 PATCH; Start 10/10/16 at 21:00 TORRI HARLEY MD Oct 11, 2016 23:31
[2016-10-12] VITALS (13 sets, daily range): BP systolic 91–138; BP diastolic 54–81; PULSE 80–100; RESP 17–18
[2016-10-12] MEDS: IPRATROPIUM (NEB) 0.5 MG/2.5 ML AMP HHN SCH ×3 (08:34→23:35)
[2016-10-12] MEDS: ALBUTEROL 0.083% (NEB) 2.5 MG/3 ML AMP HHN SCH ×3 (08:34→23:35)
[2016-10-12] MEDS: CLOPIDOGREL 75 MG TAB GTB SCH (08:54)
[2016-10-12] MEDS: FERROUS SULFATE 60 MG/ML 5ML CUP NGT SCH (08:55)
[2016-10-12] MEDS: FAMOTIDINE 20 MG TAB NGT SCH (08:56)
[2016-10-12] MEDS: METOPROLOL 50 MG TAB NGT SCH ×2 (08:56→22:33)
[2016-10-12] MEDS: AMLODIPINE 5 MG TAB PO SCH (08:56)
--- NOTE | 2016-10-12 09:31 | PN ---
Date/Time of Note Date/Time of Note DATE: 10/12/16 TIME: 08:59 Assessment/Plan VTE Prophylaxis VTE Prophylaxis Intervention: ambulation, anti-embolic stocking VTE Contraindication Reason: peripheral vascular disease Lines/Catheters IV Catheter Type (from Nrsg): Peripheral IV Central line still needed: No Urinary Cath still in place: Yes Reason Cath still needed: urinary retention Assessment/Plan Assessment/Plan 1.Sepsis-aspiration pneumonia and /or URI/uti-improving 2.Aspiration pneumonia NGT was removed. G tube placed-feeding started.. 3.Lactic acidosis- improved 4.ATN with elevated creatinine1.07 now 1.12- am labs pending. 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 6.Severe PAD with carotid bruits bilaterally 7.DM type 2 new onset 8.Dysphagia, dysarthria, s/p failed one swallowing evaluation- second evaluation pending 9.Lethargic- more alert. 10.Iron deficiency- continue supplementation. 11.Anemia of chronic disease- drop of hct to 27- am labs pending. 12.Atrial fibrillation with controlled ventricular rate- unknown time duration 13.PTSD after acute stress months ago 14.S/P midline laparotomy with cholecystectomy 15.Hematuria and uti 16.Urinary incontinence 17.Osteoporosis; kyphosis 18.Multiple s/c ecchymoses inr 1.7 19.Dysphagia- swallowing evaluation pending. Cont'd Hospitalization Reason: rehab with cont Rx of anemia and other conditions. Subjective 24 Hr Interval Summary Free Text/Dictation Unable to communicate with me. Responds to verbal stimuli. Subjective hx not possible: pt critical Constitutional: improved, No chills, No diaphoresis, No disoriented, No febrile, No no complaints, No other, No poor po, No requiring IVF, No requiring O2 Eyes: No discharge, No no complaints, No other, No pain, No redness, No visual change ENT: No bleeding, No congestion, No discharge, No dysphagia, No no complaints, No other, No pain, No sore throat Respiratory: No cough, No no complaints, No other, No pain, No pleuritic pain, No shortness of breath, No sputum, No wheezing Cardiovascular: No chest pain, No edema, No lightheadedness, No no complaints, No orthopenea, No other, No palpitations, No paroxysmal nocturnal dyspnea Neurologic: focal-weakness (left hemiplegia persists.) Exam/Review of Systems Vital Signs Vitals Vital Signs Date Time Temp Pulse Resp B/P Pulse Ox O2 Delivery O2 Flow Rate FiO2 10/12/16 08:35 88 20 95 21 10/12/16 08:10 98.9 123/81 10/11/16 20:00 Nasal Cannula 2.0 Intake and Output 10/11/16 10/11/16 10/12/16 15:00 23:00 07:00 Intake Total 810 ml 810 ml Output Total 1200 ml 800 ml Balance -390 ml 10 ml Exam Constitutional: alert, frail, oriented (in z presence of a daughter was able to verbalise very well.), other (lethargic, arousable, cot communicating with me directly. Talking with the grandson in my presence.) Psych: nl mood/affect, no complaints, No anxiety, No confusion, No depression, No other, No suicidal Head: atraumatic, normocephalic, No hematomas, No lacerations, No other Eyes: EOMI (except for greate difficulty to the left side, but able to do.), PERRL, nl lids, No fundi, disc, No icteric, No nl conjunctiva, No nl sclera, No other ENMT: nl external ears & nose, nl lips & teeth (dry.), No intubated, No mucosa pink and moist, No nl nasal mucosa & septum, No other , No tympanic membranes Neck: bruits, nuchal rigidity, supple, No jvd, No masses, No non-tender, No other, No thyromegaly Respiratory: clear to auscultation, crackles/rales, diminished breath sounds, normal air movement, wheezing, No congested cough, No intercostal retraction, No labored breathing, No other , No respirations, No tactile fremitus Cardiovascular: bruits, irregular rhythm, systolic murmur, No S3, No S4, No diastolic murmur, No edema, No gallop, No jugular venous distention (JVD), No murmurs/extra sounds, No nl pulses, No other, No regular rate and rhythm, No rub Gastrointestinal: bowel sounds, nl liver, spleen, other (g-tube side clean.) , soft, surgical scars, No ascites, No distended, No firm, No hepatomegaly, No mass, No non-tender, No rebound or guarding, No splenomegaly, No tender Genitourinary - Female: No CMT, No CVA tenderness, No nl adnexae, No nl external genitalia, No other, No uterus Musculoskeletal: joint tenderness, muscle tone, muscle weakness, No nl extremities to inspection, No nl gait and stance, No other, No range of motion, No spine non-tender, No swelling Extremities: normal pulses (in a presence of family person she is more communicable , more active and cooperative.) 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: CASKET INSPECTOR II-XII intact, focal weakness, nl mental status, nl speech, nl strength, other (left hemiplegia persists.) Skin: nl turgor (decresed.), No diaphoresis, No ecchymosis, No laceration, No other, No puncture, No rash or lesions Lymph: No enlarged, No nl lymph nodes, No nontender, No other Results Result Diagram: 10/11/16 0735 10/11/16 0735 Medications Medications Current Medications Acetaminophen (Tylenol Supp) 325 mg Q8 PRN [place] FEVER; Start 10/08/16 at 00:30 Metoprolol Tartrate (Lopressor) 50 mg BID NGT Last administered on 10/11/16 21 :01; Admin Dose 50 MG; Start 10/09/16 at 21:00 Hydralazine HCl (Apresoline) 10 mg Q6H PRN IV ELEVATED BLOOD PRESSURE; Start at 13:30 Ferrous Sulfate (Feosol Liquid Cup) 300 mg DAILY NGT Last administered on 08:21; Admin Dose 300 MG; Start 10/10/16 at 09:00 Famotidine (Pepcid) 20 mg DAILY NGT Last administered on 10/11/16 08:21; Admin Dose 20 MG; Start 10/10/16 at 09:00 Amlodipine Besylate (Norvasc) 5 mg DAILY PO Last administered on 10/11/16 08: 22; Admin Dose 5 MG; Start 10/10/16 at 13:30 Clopidogrel Bisulfate (plaVIX) 75 mg DAILY GTB Last administered on 10/11/16 08:22; Admin Dose 75 MG; Start 10/11/16 at 09:00 Clonidine HCl (Catapres-Tts 1 Patch) 1 patch Q7D TRANSDERM Last administered on 10/10/16t 21:57; Admin Dose 1 PATCH; Start 10/10/16 at 21:00 YASIR HART MD Oct 12, 2016 09:15
--- NOTE | 2016-10-12 09:50 | CONS ---
Date/Time of Note Date/Time of Note DATE: 10/12/16 TIME: 09:49 Assessment/Plan Assessment/Plan Chief Complaint/Hosp Course Chronic atrial fibrillation: Had rapid rates on admission, now better after IVF and antibiotics. Controlled Aspiration PNA ARF: resolved Recent CVA s/p TPA DM HTN -metoprolol 50mg BID -amlodipine 5mg -started on plavix (would prefer anticoagulation with coumadin or NOAC with pt' s h/o stroke and high risk for recurrence) -antibiotics per primary Problems: Consultation Date/Type/Reason Admit Date/Time Oct 07, 2016 at 22:49 Initial Consult Date 10/08/16 Type of Consultation: Cardiology Referring Provider: YASIR HART MD 24 HR Interval Summary Free Text/Dictation No o/n events. HR overall controlled Exam/Review of Systems Vital Signs Vitals Vital Signs Date Time Temp Pulse Resp B/P Pulse Ox O2 Delivery O2 Flow Rate FiO2 10/12/16 08:35 88 20 95 21 10/12/16 08:10 98.9 123/81 10/11/16 20:00 Nasal Cannula 2.0 Intake and Output 10/11/16 10/11/16 10/12/16 15:00 23:00 07:00 Intake Total 810 ml 810 ml Output Total 1200 ml 800 ml Balance -390 ml 10 ml Exam Constitutional: No alert Head: atraumatic, normocephalic Neck: No jvd Respiratory: clear to auscultation, No crackles/rales Cardiovascular: No edema, No regular rate and rhythm (IRIR), No systolic murmur Gastrointestinal: non-tender, soft, No distended Extremities: normal pulses 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: No nl mental status, No nl speech Results Result Diagram: 10/11/16 0735 10/11/16 0735 Medications Medications Current Medications Acetaminophen (Tylenol Supp) 325 mg Q8 PRN [place] FEVER; Start 10/08/16 at 00:30 Metoprolol Tartrate (Lopressor) 50 mg BID NGT Last administered on 10/12/16t 08 :56; Admin Dose 50 MG; Start 10/09/16 at 21:00 Hydralazine HCl (Apresoline) 10 mg Q6H PRN IV ELEVATED BLOOD PRESSURE; Start at 13:30 Ferrous Sulfate (Feosol Liquid Cup) 300 mg DAILY NGT Last administered on 08:55; Admin Dose 300 MG; Start 10/10/16 at 09:00 Famotidine (Pepcid) 20 mg DAILY NGT Last administered on 10/12/16 08:56; Admin Dose 20 MG; Start 10/10/16 at 09:00 Amlodipine Besylate (Norvasc) 5 mg DAILY PO Last administered on 10/12/16 08: 56; Admin Dose 5 MG; Start 10/10/16 at 13:30 Clopidogrel Bisulfate (plaVIX) 75 mg DAILY GTB Last administered on 10/12/16 08:54; Admin Dose 75 MG; Start 10/11/16 at 09:00 Clonidine HCl (Catapres-Tts 1 Patch) 1 patch Q7D TRANSDERM Last administered on 10/10/16 21:57; Admin Dose 1 PATCH; Start 10/10/16 at 21:00 Levofloxacin (Levaquin) 500 mg DAILY@06 GTB ; Start 10/12/16 at 10:00 Clindamycin HCl (Cleocin) 300 mg Q8 PO ; Start 10/12/16 at 10:00 Polysaccharide Iron Complex (Niferex-150) 1 cap BID PO ; Start 10/12/16 at 11:00 Prednisone (Prednisone) 30 mg DAILY GTB ; Start 10/12/16 at 10:00; Status UNV Prednisone (Prednisone) 20 mg DAILY NGT ; Start 10/13/16 at 09:00; Status UNV Prednisone (Prednisone) 10 mg DAILY GTB ; Start 10/14/16 at 09:00; Status UNV Potassium Chloride (Potassium Chloride Pwd/Soln) 20 meq BID PO ; Start 10/12/16 at 10:00 ADAN BLAIR Oct 12, 2016 09:50
[2016-10-12] MEDS ORDERED: predniSONE 10 MG TAB GTB SCH (10:00)
[2016-10-12] MEDS ORDERED: POTASSIUM CHLORIDE (SR) 20 MEQ TAB PO SCH (10:00)
[2016-10-12] MEDS ORDERED: POTASSIUM CHLORIDE 20 MEQ POWDER FOR ORAL SOLN PO SCH (10:00)
[2016-10-12] MEDS: POTASSIUM CHLORIDE 20 MEQ POWDER FOR ORAL SOLN PO SCH ×2 (10:38→22:32)
[2016-10-12] MEDS: LEVOFLOXACIN 500 MG TAB GTB SCH (10:38)
[2016-10-12] MEDS: CLINDAMYCIN 300 MG CAP PO SCH ×3 (10:39→22:32)
--- NOTE | 2016-10-12 10:41 | RADRPT ---
PROCEDURE: US Lower extremity Venous. CLINICAL INDICATION: Bilateral lower extremity edema TECHNIQUE: Multiple sonographic images of the bilateral lower extremity deep venous system was obt ained utilizing grayscale, color-flow, compressive sonography and doppler imaging with augmentation. The images were reviewed on a PACS workstation. COMPARISON: None. FINDINGS: There is normal compressibility and flow within the bilateral common femoral, femoral , posterior ti bial and popliteal veins. RPTAT: AA IMPRESSION: No sonographic evidence for deep venous thrombosis. .Nasim Cortez MD, MD Date Time Electronically viewed and signed by .Nasim Cortez MD, on 10/12/2016 10:41 .S/
[2016-10-12] MEDS ORDERED: predniSONE 10 MG TAB GTB ONE (11:00)
[2016-10-12] MEDS ORDERED: POLYSACCHARIDE IRON COMPLEX CAP PO SCH (11:00)
--- NOTE | 2016-10-12 11:03 | CONS ---
Date/Time of Note Date/Time of Note DATE: 10/12/16 TIME: 11:01 Assessment/Plan Assessment/Plan Chief Complaint/Hosp Course 89 F with PMhx of HTN, Type II DM, h/o atrial fibrillation, H/o CVA with left hemiplegia 2weeks ago, s/p TPA, was admitted to [facility], severe PAD with Caroid atherosclerosis, Dysphagia failed swallow evalatio, admitted for sepsis, Aspiration PNA and lactic acidosis. Renal has been consulted for VERO on CKD< hyperkalemia Problems: Additional Assessment/Plan 1. acute kidney injury on CKD, renal us showed -Atrophic right kidney. 2. sepsis, possibley due to Aspiration PNA s/p G tube placement now 3. HTN 4. Type II DM 5. H/o recent CVA s/p tPA at [facility] 6. atrial fibrillation with intermittently elevated HR 7. Hypernatremia- change IVF- D51/2 NS at 60 cc/hr 8. Hypokalemia- BMP to fu 9. Anemia- Monitor cbc,transfuse PRN Plan: d/tali IVF yesterday, tolerating Tube feeding well , Cr imrpoved, to normal ,K low, started on KCL 20mEQ BID Urine studies, and Uric acid unremarkable BP stable renal us showed -Atrophic right kidney. will continue to follow up on patient need acute rehab evaluation Consultation Date/Type/Reason Admit Date/Time Oct 07, 2016 at 22:49 Initial Consult Date 10/08/16 Type of Consultation: NEPHROLOGY Referring Provider: YASIR HART MD 24 HR Interval Summary Free Text/Dictation Cr normal, K low, Tolerating G tube feeding Exam/Review of Systems Vital Signs Vitals Vital Signs Date Time Temp Pulse Resp B/P Pulse Ox O2 Delivery O2 Flow Rate FiO2 10/12/16 08:35 88 20 95 21 10/12/16 08:10 98.9 123/81 10/11/16 20:00 Nasal Cannula 2.0 Intake and Output 10/11/16 10/11/16 10/12/16 15:00 23:00 07:00 Intake Total 810 ml 810 ml Output Total 1200 ml 800 ml Balance -390 ml 10 ml Exam Constitutional: more awake today Respiratory: congested cough, crackles/rales, diminished breath sounds Cardiovascular: irregular rhythm, regular rate and rhythm Gastrointestinal: non-tender, soft, + g tube in place, site clear Musculoskeletal: joint tenderness, muscle weakness, range of motion, swelling 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: not cooperative Results Result Diagram: 10/11/16 0735 10/11/16 0735 Medications Medications Current Medications Acetaminophen (Tylenol Supp) 325 mg Q8 PRN [place] FEVER; Start 10/08/16 at 00:30 Metoprolol Tartrate (Lopressor) 50 mg BID NGT Last administered on 10/12/16 08 :56; Admin Dose 50 MG; Start 10/09/16 at 21:00 Hydralazine HCl (Apresoline) 10 mg Q6H PRN IV ELEVATED BLOOD PRESSURE; Start at 13:30 Ferrous Sulfate (Feosol Liquid Cup) 300 mg DAILY NGT Last administered on 08:55; Admin Dose 300 MG; Start 10/10/16 at 09:00 Famotidine (Pepcid) 20 mg DAILY NGT Last administered on 10/12/16 08:56; Admin Dose 20 MG; Start 10/10/16 at 09:00 Amlodipine Besylate (Norvasc) 5 mg DAILY PO Last administered on 10/12/16 08: 56; Admin Dose 5 MG; Start 10/10/16 at 13:30 Clopidogrel Bisulfate (plaVIX) 75 mg DAILY GTB Last administered on 10/12/16 08:54; Admin Dose 75 MG; Start 10/11/16 at 09:00 Clonidine HCl (Catapres-Tts 1 Patch) 1 patch Q7D TRANSDERM Last administered on 10/10/16 21:57; Admin Dose 1 PATCH; Start 10/10/16 at 21:00 Levofloxacin (Levaquin) 500 mg DAILY@06 GTB Last administered on 10/12/16 10: 38; Admin Dose 500 MG; Start 10/12/16 at 10:00 Clindamycin HCl (Cleocin) 300 mg Q8 PO Last administered on 10/12/16 10:39; Admin Dose 300 MG; Start 10/12/16 at 10:00 Prednisone (Prednisone) 30 mg ONCE ONCE GTB Last administered on 10/12/16 10: 38; Admin Dose 30 MG; Start 10/12/16 at 11:00; Stop 10/12/16 at 11:01 Prednisone (Prednisone) 20 mg ONCE ONCE NGT ; Start 10/13/16 at 09:00; Stop at 09:01 Prednisone (Prednisone) 10 mg ONCE ONCE GTB ; Start 10/14/16 at 09:00; Stop at 09:01 Potassium Chloride (Potassium Chloride Pwd/Soln) 20 meq BID PO Last administered on 10/12/16t 10:38; Admin Dose 20 MEQ; Start 10/12/16 at 10:10 MAINOR HUTCHISON MD Oct 12, 2016 11:03
--- NOTE | 2016-10-12 20:40 | CONS ---
Date/Time of Note Date/Time of Note DATE: 10/12/16 TIME: 20:38 Assessment/Plan Assessment/Plan Chief Complaint/Hosp Course ANEMIA N- CYTIC WITH N RDW WITH DROP H/H DURING HOSPITALIZATION MONITOR BLOOD COUNT CLOSELY OBSERVE FOR BLEEDING AND HEMOLYSIS + COMPONENT ACD CHECK BLOOD COUNT IN AM acute kidney injury on CKD sepsis, dysphagia, aspiration PNA HTN Type II DM H/o recent CVA s/p tPA at [facility] atrial fibrillation with intermittently elevated HR Problems: Consultation Date/Type/Reason Admit Date/Time Oct 07, 2016 at 22:49 Initial Consult Date 10/08/16 Type of Consultation: HEMEON Referring Provider: YASIR HART MD 24 HR Interval Summary Free Text/Dictation ALL NOTED H/H DROPPING NO ACUTE BLEEDING NO HEMOLYSIS Exam/Review of Systems Vital Signs Vitals Vital Signs Date Time Temp Pulse Resp B/P Pulse Ox O2 Delivery O2 Flow Rate FiO2 10/12/16 19:45 97.8 102 17 137/58 96 10/12/16 15:00 21 10/12/16 08:10 Nasal Cannula 2.0 Intake and Output 10/11/16 10/11/16 10/12/16 15:00 23:00 07:00 Intake Total 810 ml 810 ml Output Total 1200 ml 800 ml Balance -390 ml 10 ml Exam Constitutional: non-verbal Psych: no complaints Head: normocephalic Eyes: nl conjunctiva Respiratory: congested cough, crackles/rales, diminished breath sounds Cardiovascular: irregular rhythm, regular rate and rhythm Gastrointestinal: non-tender, soft Musculoskeletal: joint tenderness, muscle weakness, range of motion, swelling 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: lethargic, unresponsive Skin: nl turgor Lymph: nl lymph nodes Results Result Diagram: 10/11/16 0735 10/11/16 0735 Medications Medications Current Medications Acetaminophen (Tylenol Supp) 325 mg Q8 PRN [place] FEVER; Start 10/08/16 at 00:30 Metoprolol Tartrate (Lopressor) 50 mg BID NGT Last administered on 10/12/16t 08 :56; Admin Dose 50 MG; Start 10/09/16 at 21:00 Hydralazine HCl (Apresoline) 10 mg Q6H PRN IV ELEVATED BLOOD PRESSURE; Start at 13:30 Ferrous Sulfate (Feosol Liquid Cup) 300 mg DAILY NGT Last administered on 08:55; Admin Dose 300 MG; Start 10/10/16 at 09:00 Famotidine (Pepcid) 20 mg DAILY NGT Last administered on 10/12/16 08:56; Admin Dose 20 MG; Start 10/10/16 at 09:00 Amlodipine Besylate (Norvasc) 5 mg DAILY PO Last administered on 10/12/16 08: 56; Admin Dose 5 MG; Start 10/10/16 at 13:30 Clopidogrel Bisulfate (plaVIX) 75 mg DAILY GTB Last administered on 10/12/16 08:54; Admin Dose 75 MG; Start 10/11/16 at 09:00 Clonidine HCl (Catapres-Tts 1 Patch) 1 patch Q7D TRANSDERM Last administered on 10/10/16 21:57; Admin Dose 1 PATCH; Start 10/10/16 at 21:00 Levofloxacin (Levaquin) 500 mg DAILY@06 GTB Last administered on 10/12/16 10: 38; Admin Dose 500 MG; Start 10/12/16 at 10:00 Clindamycin HCl (Cleocin) 300 mg Q8 PO Last administered on 10/12/16 15:35; Admin Dose 300 MG; Start 10/12/16 at 10:00 Prednisone (Prednisone) 20 mg ONCE ONCE NGT ; Start 10/13/16 at 09:00; Stop at 09:01 Prednisone (Prednisone) 10 mg ONCE ONCE GTB ; Start 10/14/16 at 09:00; Stop at 09:01 Potassium Chloride (Potassium Chloride Pwd/Soln) 20 meq BID PO Last administered on 10/12/16 10:38; Admin Dose 20 MEQ; Start 10/12/16 at 10:10 TORRI HARLEY MD Oct 12, 2016 20:40
--- NOTE | 2016-10-12 21:04 | CONS ---
Date/Time of Note Date/Time of Note DATE: 10/12/16 TIME: 21:03 Assessment/Plan Assessment/Plan Chief Complaint/Hosp Course 89-year-old female with a history of diabetes mellitus, hypertension, atrial fibrillation had a stroke a few days ago for which she was hospitalized at [facility]. Swallow study was done patient failed swallow study so NG tube was passed and was [facility]. Patient was supposed to have a G-tube as outpatient but in the interim she aspirated became septic and was brought to the emergency room and admitted to [facility]. Patient is nonverbal. All the information gathered by reviewing the chart. Problems: Additional Assessment/Plan Additional Assessment/Plan 1. CVA status post TPA at [facility] 2. Left hemiplegia 3. Dysphagia 4. Prerenal azotemia 5. Anemia 6. Diabetes mellitus 7. Hypertension 8. Atrial fibrillation 9. Possible aspiration pneumonia 10. 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 11.s/p PEG Plan increase feeding slowly aspiration precaution continue present care Consultation Date/Type/Reason Admit Date/Time Oct 07, 2016 at 22:49 Initial Consult Date 10/08/16 Type of Consultation: HEMEON Referring Provider: YASIR HART MD 24 HR Interval Summary Subjective hx not possible: pt non-verbal Exam/Review of Systems Vital Signs Vitals Vital Signs Date Time Temp Pulse Resp B/P Pulse Ox O2 Delivery O2 Flow Rate FiO2 10/12/16 19:45 97.8 102 17 137/58 96 10/12/16 15:00 21 10/12/16 08:10 Nasal Cannula 2.0 Intake and Output 10/11/16 10/11/16 10/12/16 15:00 23:00 07:00 Intake Total 810 ml 810 ml Output Total 1200 ml 800 ml Balance -390 ml 10 ml Exam Constitutional: alert, oriented, well developed Psych: nl mood/affect, no complaints Head: atraumatic, normocephalic Eyes: EOMI, PERRL, nl conjunctiva, nl lids, nl sclera ENMT: nl external ears & nose, nl lips & teeth, nl nasal mucosa & septum Neck: non-tender, supple Respiratory: clear to auscultation, normal air movement Cardiovascular: nl pulses, regular rate and rhythm Gastrointestinal: nl liver, spleen, non-tender, soft Musculoskeletal: nl extremities to inspection, nl gait and stance Extremities: normal pulses 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: UNIFORM MAKER II-XII intact, nl mental status, nl speech, nl strength Skin: nl turgor, No rash or lesions Lymph: nl lymph nodes Results Result Diagram: 10/11/16 0735 10/11/16 0735 Medications Medications Current Medications Acetaminophen (Tylenol Supp) 325 mg Q8 PRN [place] FEVER; Start 10/08/16 at 00:30 Metoprolol Tartrate (Lopressor) 50 mg BID NGT Last administered on 10/12/16 08 :56; Admin Dose 50 MG; Start 10/09/16 at 21:00 Hydralazine HCl (Apresoline) 10 mg Q6H PRN IV ELEVATED BLOOD PRESSURE; Start at 13:30 Ferrous Sulfate (Feosol Liquid Cup) 300 mg DAILY NGT Last administered on 08:55; Admin Dose 300 MG; Start 10/10/16 at 09:00 Famotidine (Pepcid) 20 mg DAILY NGT Last administered on 10/12/16 08:56; Admin Dose 20 MG; Start 10/10/16 at 09:00 Amlodipine Besylate (Norvasc) 5 mg DAILY PO Last administered on 10/12/16 08: 56; Admin Dose 5 MG; Start 10/10/16 at 13:30 Clopidogrel Bisulfate (plaVIX) 75 mg DAILY GTB Last administered on 10/12/16 08:54; Admin Dose 75 MG; Start 10/11/16 at 09:00 Clonidine HCl (Catapres-Tts 1 Patch) 1 patch Q7D TRANSDERM Last administered on 10/10/16 21:57; Admin Dose 1 PATCH; Start 10/10/16 at 21:00 Levofloxacin (Levaquin) 500 mg DAILY@06 GTB Last administered on 10/12/16 10: 38; Admin Dose 500 MG; Start 10/12/16 at 10:00 Clindamycin HCl (Cleocin) 300 mg Q8 PO Last administered on 10/12/16 15:35; Admin Dose 300 MG; Start 10/12/16 at 10:00 Prednisone (Prednisone) 20 mg ONCE ONCE NGT ; Start 10/13/16 at 09:00; Stop at 09:01 Prednisone (Prednisone) 10 mg ONCE ONCE GTB ; Start 10/14/16 at 09:00; Stop at 09:01 Potassium Chloride (Potassium Chloride Pwd/Soln) 20 meq BID PO Last administered on 10/12/16t 10:38; Admin Dose 20 MEQ; Start 10/12/16 at 10:10 SANTOS GARCIA MD Oct 12, 2016 21:04
[2016-10-12 23:09] LABS: ALBUMIN 2.4 g/dL (3.8-4.8)
[2016-10-13] VITALS (12 sets, daily range): BP systolic 107–146; BP diastolic 54–82; PULSE 72–90; RESP 18
[2016-10-13] MEDS: LEVOFLOXACIN 500 MG TAB GTB SCH (06:18)
[2016-10-13] MEDS: CLINDAMYCIN 300 MG CAP PO SCH ×3 (06:18→23:02)
[2016-10-13] MEDS: IPRATROPIUM (NEB) 0.5 MG/2.5 ML AMP HHN SCH ×3 (07:31→23:50)
[2016-10-13] MEDS: ALBUTEROL 0.083% (NEB) 2.5 MG/3 ML AMP HHN SCH ×3 (07:31→23:50)
[2016-10-13] MEDS: POTASSIUM CHLORIDE 20 MEQ POWDER FOR ORAL SOLN PO SCH ×2 (08:12→23:02)
[2016-10-13] MEDS: METOPROLOL 50 MG TAB NGT SCH ×2 (08:12→23:02)
[2016-10-13] MEDS: FERROUS SULFATE 60 MG/ML 5ML CUP NGT SCH (08:12)
[2016-10-13] MEDS: CLOPIDOGREL 75 MG TAB GTB SCH (08:13)
[2016-10-13] MEDS: FAMOTIDINE 20 MG TAB NGT SCH (08:13)
[2016-10-13] MEDS: AMLODIPINE 5 MG TAB PO SCH (08:13)
--- NOTE | 2016-10-13 08:48 | PN ---
Date/Time of Note Date/Time of Note DATE: 10/13/16 TIME: 08:40 Assessment/Plan VTE Prophylaxis VTE Prophylaxis Intervention: ambulation, anti-embolic stocking VTE Contraindication Reason: peripheral vascular disease Lines/Catheters IV Catheter Type (from Nrsg): Peripheral IV Central line still needed: No Urinary Cath still in place: Yes Reason Cath still needed: urinary retention Assessment/Plan Assessment/Plan 1.Sepsis-aspiration pneumonia and /or URI/uti-improving 2.Aspiration pneumonia NGT was removed. G tube placed-feeding started. 3.Lactic acidosis- improved 4.ATN with elevated creatinine1.07 now 1.12- am labs pending. 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 6.Severe PAD with carotid bruits bilaterally 7.DM type 2 new onset 8.Dysphagia, dysarthria, s/p failed one swallowing evaluation- second evaluation pending 9.Lethargic- more alert. 10.Iron deficiency- continue supplementation. 11.Anemia of chronic disease- drop of hct to 27- am labs pending. 12.Atrial fibrillation with controlled ventricular rate- unknown time duration 13.PTSD after acute stress months ago 14.S/P midline laparotomy with cholecystectomy 15.Hematuria- cleared ad oculus and uti improving 16.Urinary incontinence 17.Osteoporosis; kyphosis 18.Multiple s/c ecchymoses 19.Dysphagia- improving with better verbalisation Cont'd Hospitalization Reason: transfer to rehab. Subjective 24 Hr Interval Summary Free Text/Dictation Sleeping. Arausable but refuses to talk. During evaluation states that it is comfortable to turn her to side. Verbalization is good with much more clear wards. Subjective hx not possible: other (improving.) Constitutional: improved, no complaints, No chills, No diaphoresis, No disoriented, No febrile, No other, No poor po, No requiring IVF, No requiring O2 Eyes: No discharge, No no complaints, No other, No pain, No redness, No visual change ENT: No bleeding, No congestion, No discharge, No dysphagia, No no complaints, No other, No pain, No sore throat Respiratory: No cough, No no complaints, No other, No pain, No pleuritic pain, No shortness of breath, No sputum, No wheezing Cardiovascular: No chest pain, No edema, No lightheadedness, No no complaints, No orthopenea, No other, No palpitations, No paroxysmal nocturnal dyspnea Gastrointestinal: passing stool, No blood, No constipation, No decreased appetite, No diarrhea, No flatus, No nausea, No no complaints, No other, No pain, No vomiting Genitourinary: other (clear urine in a urinary bag.), No bleeding, No discharge, No dysuria, No flank pain, No hematuria, No no complaints Musculoskeletal: back pain, bone/joint pain, neck pain, No no complaints, No other, No restricted range of motion, No swelling Neurologic: focal-weakness, No confusion, No dizziness, No headache, No no complaints, No other, No seizure, No syncope Exam/Review of Systems Vital Signs Vitals Vital Signs Date Time Temp Pulse Resp B/P Pulse Ox O2 Delivery O2 Flow Rate FiO2 10/13/16 08:18 88 115/59 10/13/16 08:07 98.4 18 97 10/13/16 07:32 21 10/12/16 20:30 Nasal Cannula 2.0 Intake and Output 10/12/16 10/12/16 10/13/16 15:00 23:00 07:00 Intake Total 850 ml 850 ml Output Total 1400 ml 1000 ml Balance -550 ml -150 ml Exam Constitutional: alert, other (gettinjg more communicable.), No distress, No frail, No non-verbal, No obese, No oriented, No well developed Psych: nl mood/affect, No anxiety, No confusion, No depression, No no complaints, No other, No suicidal Head: No atraumatic, No hematomas, No lacerations, No normocephalic, No other Eyes: No EOMI, No PERRL, No fundi, disc, No icteric, No nl conjunctiva, No nl lids, No nl sclera, No other ENMT: No intubated, No mucosa pink and moist, No nl external ears & nose, No nl lips & teeth, No nl nasal mucosa & septum, No other, No tympanic membranes Neck: bruits, jvd, nuchal rigidity, No masses, No non-tender, No other, No supple, No thyromegaly Respiratory: No clear to auscultation, No congested cough, No crackles/rales, No diminished breath sounds, No intercostal retraction, No labored breathing, No normal air movement, No other, No respirations, No tactile fremitus, No wheezing Cardiovascular: bruits, irregular rhythm, nl pulses, systolic murmur, No S3, No S4, No diastolic murmur, No edema, No gallop, No jugular venous distention (JVD), No murmurs/extra sounds, No other, No regular rate and rhythm , No rub Gastrointestinal: nl liver, spleen, non-tender, other (G tube side is clear. ), soft, surgical scars, No ascites, No bowel sounds, No distended, No firm, No hepatomegaly, No mass , No rebound or guarding, No splenomegaly, No tender Genitourinary - Female: nl external genitalia, No CMT, No CVA tenderness, No nl adnexae, No other, No uterus Musculoskeletal: joint tenderness, muscle tone, muscle weakness, other (severe roman-ic changes), range of motion Extremities: No calf tenderness, No clubbing, No cyanosis, No edema, No normal pulses, No other, No palpable cord, No pitting pedal edema, No tenderness 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: GRINDER TENDER II-XII intact, focal weakness, nl speech, numbness, No DTR's symmetric, No confused, No lethargic, No nl mental status, No nl strength, No other, No reflexes, No unresponsive Skin: nl turgor (decreased, dry skin.), No diaphoresis, No ecchymosis, No laceration, No other, No puncture, No rash or lesions Results Result Diagram: 10/11/16 0735 10/11/16 0735 Medications Medications Current Medications Acetaminophen (Tylenol Supp) 325 mg Q8 PRN [place] FEVER; Start 10/08/16 at 00:30 Metoprolol Tartrate (Lopressor) 50 mg BID NGT Last administered on 10/13/16 08 :12; Admin Dose 50 MG; Start 10/09/16 at 21:00 Hydralazine HCl (Apresoline) 10 mg Q6H PRN IV ELEVATED BLOOD PRESSURE; Start at 13:30 Ferrous Sulfate (Feosol Liquid Cup) 300 mg DAILY NGT Last administered on 08:12; Admin Dose 300 MG; Start 10/10/16 at 09:00 Famotidine (Pepcid) 20 mg DAILY NGT Last administered on 10/13/16 08:13; Admin Dose 20 MG; Start 10/10/16 at 09:00 Amlodipine Besylate (Norvasc) 5 mg DAILY PO Last administered on 10/13/16 08: 13; Admin Dose 5 MG; Start 10/10/16 at 13:30 Clopidogrel Bisulfate (plaVIX) 75 mg DAILY GTB Last administered on 10/13/16 08:13; Admin Dose 75 MG; Start 10/11/16 at 09:00 Clonidine HCl (Catapres-Tts 1 Patch) 1 patch Q7D TRANSDERM Last administered on 10/10/16 21:57; Admin Dose 1 PATCH; Start 10/10/16 at 21:00 Levofloxacin (Levaquin) 500 mg DAILY@06 GTB Last administered on 10/13/16 06: 18; Admin Dose 500 MG; Start 10/12/16 at 10:00 Clindamycin HCl (Cleocin) 300 mg Q8 PO Last administered on 10/13/16 06:18; Admin Dose 300 MG; Start 10/12/16 at 10:00 Prednisone (Prednisone) 20 mg ONCE ONCE NGT Last administered on 10/13/16 08: 13; Admin Dose 20 MG; Start 10/13/16 at 09:00; Stop 10/13/16 at 09:01 Prednisone (Prednisone) 10 mg ONCE ONCE GTB ; Start 10/14/16 at 09:00; Stop at 09:01 Potassium Chloride (Potassium Chloride Pwd/Soln) 20 meq BID PO Last administered on 10/13/16 08:12; Admin Dose 20 MEQ; Start 10/12/16 at 10:10 YASIR HART MD Oct 13, 2016 08:48
[2016-10-13 08:49] LABS: WHITE BLOOD COUNT 11.9 10^3/ul (4.8-10.8)
[2016-10-13 08:50] LABS: ABNORMAL IP MESSAGE 1; HEMATOCRIT 29.5 % (37.0-47.0); HEMOGLOBIN 9.7 g/dl (12.0-16.0); MEAN CORPUSCULAR HEMOGLOBIN 29.3 pg (29.0-33.0); MEAN CORPUSCULAR HGB CONC 32.9 g/dl (32.0-37.0); MEAN CORPUSCULAR VOLUME 89.1 fl (82.0-101.0); MEAN PLATELET VOLUME 10.1 fl (7.4-10.4); PLATELET COUNT 278 10^3/UL (140-415); RED BLOOD COUNT 3.31 10^6/ul (4.20-5.40); RED CELL DISTRIBUTION WIDTH 12.7 % (11.5-14.5)
[2016-10-13 08:51] LABS: POSITIVE DIFF @See below
[2016-10-13] MEDS ORDERED: predniSONE 20 MG TAB NGT SCH (09:00)
[2016-10-13] MEDS ORDERED: predniSONE 20 MG TAB NGT ONE (09:00)
--- NOTE | 2016-10-13 09:07 | CONS ---
Date/Time of Note Date/Time of Note DATE: 10/13/16 TIME: 09:06 Assessment/Plan Assessment/Plan Chief Complaint/Hosp Course Chronic atrial fibrillation: Had rapid rates on admission, now better after IVF and antibiotics. Controlled Aspiration PNA ARF: resolved Recent CVA s/p TPA DM HTN -metoprolol 50mg BID -amlodipine 5mg -started on plavix (would prefer anticoagulation with coumadin or NOAC with pt' s h/o stroke and high risk for recurrence) -antibiotics per primary Problems: Consultation Date/Type/Reason Admit Date/Time Oct 07, 2016 at 22:49 Initial Consult Date 10/08/16 Type of Consultation: Cardiology Referring Provider: YASIR HART MD 24 HR Interval Summary Free Text/Dictation No o/n events,. Plan for rehab placement Exam/Review of Systems Vital Signs Vitals Vital Signs Date Time Temp Pulse Resp B/P Pulse Ox O2 Delivery O2 Flow Rate FiO2 10/13/16 08:18 88 115/59 10/13/16 08:07 98.4 18 97 10/13/16 07:32 21 10/12/16 20:30 Nasal Cannula 2.0 Intake and Output 10/12/16 10/12/16 10/13/16 15:00 23:00 07:00 Intake Total 850 ml 850 ml Output Total 1400 ml 1000 ml Balance -550 ml -150 ml Exam Constitutional: alert, No oriented Head: atraumatic, normocephalic Neck: No jvd Respiratory: clear to auscultation, No crackles/rales Cardiovascular: regular rate and rhythm, No edema Gastrointestinal: non-tender, soft 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: nl mental status, nl speech Results Result Diagram: 10/13/16 0728 10/11/16 0735 Results 24 hrs Laboratory Tests Test 10/13/16 07:28 White Blood Count 11.9 #H Red Blood Count 3.31 L Hemoglobin 9.7 L Hematocrit 29.5 L Mean Corpuscular Volume 89.1 Mean Corpuscular Hemoglobin 29.3 Mean Corpuscular Hemoglobin Concent 32.9 Red Cell Distribution Width 12.7 Platelet Count 278 # Mean Platelet Volume 10.1 Neutrophils % Lymphocytes % Monocytes % Eosinophils % Basophils % Nucleated Red Blood Cells % 0.0 Neutrophils # (Manual) 9 H Lymphocytes # Monocytes # Eosinophils # Basophils # Nucleated Red Blood Cells # Medications Medications Current Medications Acetaminophen (Tylenol Supp) 325 mg Q8 PRN [place] FEVER; Start 10/08/16 at 00:30 Metoprolol Tartrate (Lopressor) 50 mg BID NGT Last administered on 10/13/16 08 :12; Admin Dose 50 MG; Start 10/09/16 at 21:00 Hydralazine HCl (Apresoline) 10 mg Q6H PRN IV ELEVATED BLOOD PRESSURE; Start at 13:30 Ferrous Sulfate (Feosol Liquid Cup) 300 mg DAILY NGT Last administered on 08:12; Admin Dose 300 MG; Start 10/10/16 at 09:00 Famotidine (Pepcid) 20 mg DAILY NGT Last administered on 10/13/16 08:13; Admin Dose 20 MG; Start 10/10/16 at 09:00 Amlodipine Besylate (Norvasc) 5 mg DAILY PO Last administered on 10/13/16 08: 13; Admin Dose 5 MG; Start 10/10/16 at 13:30 Clopidogrel Bisulfate (plaVIX) 75 mg DAILY GTB Last administered on 10/13/16 08:13; Admin Dose 75 MG; Start 10/11/16 at 09:00 Clonidine HCl (Catapres-Tts 1 Patch) 1 patch Q7D TRANSDERM Last administered on 10/10/16 21:57; Admin Dose 1 PATCH; Start 10/10/16 at 21:00 Levofloxacin (Levaquin) 500 mg DAILY@06 GTB Last administered on 10/13/16 06: 18; Admin Dose 500 MG; Start 10/12/16 at 10:00 Clindamycin HCl (Cleocin) 300 mg Q8 PO Last administered on 10/13/16 06:18; Admin Dose 300 MG; Start 10/12/16 at 10:00 Prednisone (Prednisone) 10 mg ONCE ONCE GTB ; Start 10/14/16 at 09:00; Stop at 09:01 Potassium Chloride (Potassium Chloride Pwd/Soln) 20 meq BID PO Last administered on 10/13/16 08:12; Admin Dose 20 MEQ; Start 10/12/16 at 10:10 ADAN BLAIR Oct 13, 2016 09:07
[2016-10-13 09:14] LABS: ALBUMIN 3.3 g/dl (3.3-4.9); ALBUMIN/GLOBULIN RATIO 1.03; BILIRUBIN,INDIRECT 0.4 mg/dl (0-1.1); BILIRUBIN,TOTAL 0.4 mg/dl (0.2-1.3); CALCIUM 9.3 mg/dl (8.4-10.2); CREATININE 0.97 mg/dl (0.44-1.00); MAGNESIUM 1.6 mg/dl (1.7-2.5); PHOSPHORUS 3.5 mg/dl (2.5-4.9); POTASSIUM 4.7 mmol/L (3.5-5.1); TOTAL PROTEIN 6.5 g/dl (6.1-8.1)
[2016-10-13 11:11] LABS: ANISOCYTOSIS 1+ (0-0); EOSINOPHILS % (M) 2 % (0-7); HYPOCHROMASIA 1+ (0-0); METAMYELOCYTES %M 3 % (0-0); MONOCYTES % (M) 7 % (0-11); OVALOCYTES 1+ (0-0); PLATELET ESTIMATE NORMAL; POIKILOCYTOSIS 1+ (0-0)
--- NOTE | 2016-10-13 13:09 | CONS ---
Date/Time of Note Date/Time of Note DATE: 10/13/16 TIME: 13:09 Assessment/Plan Assessment/Plan Chief Complaint/Hosp Course ANEMIA N- CYTIC WITH N RDW WITH DROP H/H DURING HOSPITALIZATION MONITOR BLOOD COUNT CLOSELY OBSERVE FOR BLEEDING AND HEMOLYSIS + COMPONENT ACD CHECK BLOOD COUNT IN AM acute kidney injury on CKD sepsis, dysphagia, aspiration PNA HTN Type II DM H/o recent CVA s/p tPA at [facility] atrial fibrillation with intermittently elevated HR Problems: Consultation Date/Type/Reason Admit Date/Time Oct 07, 2016 at 22:49 Initial Consult Date 10/08/16 Type of Consultation: hemeonc Referring Provider: YASIR HART MD 24 HR Interval Summary Free Text/Dictation ALL NOTED Exam/Review of Systems Vital Signs Vitals Vital Signs Date Time Temp Pulse Resp B/P Pulse Ox O2 Delivery O2 Flow Rate FiO2 10/13/16 12:16 98.4 90 18 125/64 97 10/13/16 07:32 21 10/12/16 20:30 Nasal Cannula 2.0 Intake and Output 10/12/16 10/12/16 10/13/16 15:00 23:00 07:00 Intake Total 850 ml 850 ml Output Total 1400 ml 1000 ml Balance -550 ml -150 ml Exam Constitutional: non-verbal Psych: no complaints Head: normocephalic Eyes: nl conjunctiva Respiratory: congested cough, crackles/rales, diminished breath sounds Cardiovascular: irregular rhythm, regular rate and rhythm Gastrointestinal: non-tender, soft Musculoskeletal: joint tenderness, muscle weakness, range of motion, swelling 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: lethargic, unresponsive Skin: nl turgor Lymph: nl lymph nodes Results Result Diagram: 10/13/16 0728 10/13/1628 Results 24 hrs Laboratory Tests Test 10/13/16 07:28 White Blood Count 11.9 #H Red Blood Count 3.31 L Hemoglobin 9.7 L Hematocrit 29.5 L Mean Corpuscular Volume 89.1 Mean Corpuscular Hemoglobin 29.3 Mean Corpuscular Hemoglobin Concent 32.9 Red Cell Distribution Width 12.7 Platelet Count 278 # Mean Platelet Volume 10.1 Neutrophils % Segmented Neutrophils % (Manual) 78 H Lymphocytes % Lymphocytes % (Manual) 8 L Monocytes % Monocytes % (Manual) 7 Eosinophils % Eosinophils % (Manual) 2 Basophils % Metamyelocytes % (manual) 3 H Nucleated Red Blood Cells % 0.0 Neutrophils # (Manual) Absolute Lymphocytes (Manual) 0.9 Lymphocytes # Monocytes # Absolute Monocytes (Manual) 0.8 Eosinophils # Basophils # Metamyelocytes # 0.3 H Nucleated Red Blood Cells # Platelet Estimate NORMAL Hypochromasia 1+ Poikilocytosis 1+ Anisocytosis 1+ Ovalocytes 1+ Sodium Level 135 Potassium Level 4.7 Chloride Level 98 Carbon Dioxide Level 27 Anion Gap 15 Blood Urea Nitrogen 28 H Creatinine 0.97 Glucose Level 126 Calcium Level 9.3 Phosphorus Level 3.5 Magnesium Level 1.6 L Total Bilirubin 0.4 Direct Bilirubin 0.00 Indirect Bilirubin 0.4 Aspartate Amino Transf (AST/SGOT) 37 Alanine Aminotransferase (ALT/SGPT) 49 Alkaline Phosphatase 87 Total Protein 6.5 Albumin 3.3 Globulin 3.20 Albumin/Globulin Ratio 1.03 Medications Medications Current Medications Acetaminophen (Tylenol Supp) 325 mg Q8 PRN [place] FEVER; Start 10/08/16 at 00:30 Metoprolol Tartrate (Lopressor) 50 mg BID NGT Last administered on 10/13/16 08 :12; Admin Dose 50 MG; Start 10/09/16 at 21:00 Hydralazine HCl (Apresoline) 10 mg Q6H PRN IV ELEVATED BLOOD PRESSURE; Start at 13:30 Ferrous Sulfate (Feosol Liquid Cup) 300 mg DAILY NGT Last administered on 08:12; Admin Dose 300 MG; Start 10/10/16 at 09:00 Famotidine (Pepcid) 20 mg DAILY NGT Last administered on 10/13/16 08:13; Admin Dose 20 MG; Start 10/10/16 at 09:00 Amlodipine Besylate (Norvasc) 5 mg DAILY PO Last administered on 10/13/16 08: 13; Admin Dose 5 MG; Start 10/10/16 at 13:30 Clopidogrel Bisulfate (plaVIX) 75 mg DAILY GTB Last administered on 10/13/16 08:13; Admin Dose 75 MG; Start 10/11/16 at 09:00 Clonidine HCl (Catapres-Tts 1 Patch) 1 patch Q7D TRANSDERM Last administered on 10/10/16 21:57; Admin Dose 1 PATCH; Start 10/10/16 at 21:00 Levofloxacin (Levaquin) 500 mg DAILY@06 GTB Last administered on 10/13/16 06: 18; Admin Dose 500 MG; Start 10/12/16 at 10:00 Clindamycin HCl (Cleocin) 300 mg Q8 PO Last administered on 10/13/16 06:18; Admin Dose 300 MG; Start 10/12/16 at 10:00 Prednisone (Prednisone) 10 mg ONCE ONCE GTB ; Start 10/14/16 at 09:00; Stop at 09:01 Potassium Chloride (Potassium Chloride Pwd/Soln) 20 meq BID PO Last administered on 10/13/16 08:12; Admin Dose 20 MEQ; Start 10/12/16 at 10:10 TORRI HARLEY MD Oct 13, 2016 13:09
--- NOTE | 2016-10-13 17:30 | CONS ---
Date/Time of Note Date/Time of Note DATE: 10/13/16 TIME: 17:28 Assessment/Plan Assessment/Plan Chief Complaint/Hosp Course 89 F with PMhx of HTN, Type II DM, h/o atrial fibrillation, H/o CVA with left hemiplegia 2weeks ago, s/p TPA, was admitted to [facility], severe PAD with Caroid atherosclerosis, Dysphagia failed swallow evalatio, admitted for sepsis, Aspiration PNA and lactic acidosis. Renal has been consulted for VERO on CKD< hyperkalemia Problems: Additional Assessment/Plan 1. acute kidney injury on CKD, renal us showed -Atrophic right kidney. 2. sepsis, possibley due to Aspiration PNA s/p G tube placement now 3. HTN 4. Type II DM 5. H/o recent CVA s/p tPA at [facility] 6. atrial fibrillation with intermittently elevated HR 7. Hypernatremia- change IVF- D51/2 NS at 60 cc/hr 8. Hypokalemia- BMP to fu 9. Anemia- Monitor cbc,transfuse PRN Plan: Magnesium sulfate 1 gram IV x 1 dose now , Cr imrpoved, to normal ,K low, started on KCL 20mEQ BID , contiue PO magnesium also Urine studies, and Uric acid unremarkable BP stable renal us showed -Atrophic right kidney. will continue to follow up on patient SNF placment in process Consultation Date/Type/Reason Admit Date/Time Oct 07, 2016 at 22:49 Initial Consult Date 10/08/16 Type of Consultation: [facility] Referring Provider: YASIR HART MD Exam/Review of Systems Vital Signs Vitals Vital Signs Date Time Temp Pulse Resp B/P Pulse Ox O2 Delivery O2 Flow Rate FiO2 10/13/16 16:00 79 10/13/16 15:48 20 96 21 10/13/16 15:45 97.8 122/70 10/12/16 20:30 Nasal Cannula 2.0 Intake and Output 10/12/16 10/12/16 10/13/16 15:00 23:00 07:00 Intake Total 850 ml 850 ml Output Total 1400 ml 1000 ml Balance -550 ml -150 ml Exam Constitutional: more awake today Respiratory: congested cough, crackles/rales, diminished breath sounds Cardiovascular: irregular rhythm, regular rate and rhythm Gastrointestinal: non-tender, soft, + g tube in place, site clear Musculoskeletal: joint tenderness, muscle weakness, range of motion, swelling 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: not cooperative Results Result Diagram: 10/13/16 0728 10/13/16 0728 Results 24 hrs Laboratory Tests Test 10/13/16 07:28 White Blood Count 11.9 #H Red Blood Count 3.31 L Hemoglobin 9.7 L Hematocrit 29.5 L Mean Corpuscular Volume 89.1 Mean Corpuscular Hemoglobin 29.3 Mean Corpuscular Hemoglobin Concent 32.9 Red Cell Distribution Width 12.7 Platelet Count 278 # Mean Platelet Volume 10.1 Neutrophils % Segmented Neutrophils % (Manual) 78 H Lymphocytes % Lymphocytes % (Manual) 8 L Monocytes % Monocytes % (Manual) 7 Eosinophils % Eosinophils % (Manual) 2 Basophils % Metamyelocytes % (manual) 3 H Nucleated Red Blood Cells % 0.0 Neutrophils # (Manual) Absolute Lymphocytes (Manual) 0.9 Lymphocytes # Monocytes # Absolute Monocytes (Manual) 0.8 Eosinophils # Basophils # Metamyelocytes # 0.3 H Nucleated Red Blood Cells # Platelet Estimate NORMAL Hypochromasia 1+ Poikilocytosis 1+ Anisocytosis 1+ Ovalocytes 1+ Sodium Level 135 Potassium Level 4.7 Chloride Level 98 Carbon Dioxide Level 27 Anion Gap 15 Blood Urea Nitrogen 28 H Creatinine 0.97 Glucose Level 126 Calcium Level 9.3 Phosphorus Level 3.5 Magnesium Level 1.6 L Total Bilirubin 0.4 Direct Bilirubin 0.00 Indirect Bilirubin 0.4 Aspartate Amino Transf (AST/SGOT) 37 Alanine Aminotransferase (ALT/SGPT) 49 Alkaline Phosphatase 87 Total Protein 6.5 Albumin 3.3 Globulin 3.20 Albumin/Globulin Ratio 1.03 Medications Medications Current Medications Acetaminophen (Tylenol Supp) 325 mg Q8 PRN [place] FEVER; Start 10/08/16 at 00:30 Metoprolol Tartrate (Lopressor) 50 mg BID NGT Last administered on 10/13/16 08 :12; Admin Dose 50 MG; Start 10/09/16 at 21:00 Hydralazine HCl (Apresoline) 10 mg Q6H PRN IV ELEVATED BLOOD PRESSURE; Start at 13:30 Ferrous Sulfate (Feosol Liquid Cup) 300 mg DAILY NGT Last administered on 08:12; Admin Dose 300 MG; Start 10/10/16 at 09:00 Famotidine (Pepcid) 20 mg DAILY NGT Last administered on 10/13/16 08:13; Admin Dose 20 MG; Start 10/10/16 at 09:00 Amlodipine Besylate (Norvasc) 5 mg DAILY PO Last administered on 10/13/16 08: 13; Admin Dose 5 MG; Start 10/10/16 at 13:30 Clopidogrel Bisulfate (plaVIX) 75 mg DAILY GTB Last administered on 10/13/16 08:13; Admin Dose 75 MG; Start 10/11/16 at 09:00 Clonidine HCl (Catapres-Tts 1 Patch) 1 patch Q7D TRANSDERM Last administered on 10/10/16 21:57; Admin Dose 1 PATCH; Start 10/10/16 at 21:00 Levofloxacin (Levaquin) 500 mg DAILY@06 GTB Last administered on 10/13/16 06: 18; Admin Dose 500 MG; Start 10/12/16 at 10:00 Clindamycin HCl (Cleocin) 300 mg Q8 PO Last administered on 10/13/16 13:56; Admin Dose 300 MG; Start 10/12/16 at 10:00 Prednisone (Prednisone) 10 mg ONCE ONCE GTB ; Start 10/14/16 at 09:00; Stop at 09:01 Potassium Chloride (Potassium Chloride Pwd/Soln) 20 meq BID PO Last administered on 10/13/16 08:12; Admin Dose 20 MEQ; Start 10/12/16 at 10:10 Magnesium Oxide (Mag-Ox 400) 400 mg DAILY GTB ; Start 10/13/16 at 16:00 MAINOR HUTCHISON MD Oct 13, 2016 17:30
[2016-10-13] MEDS: MAGNESIUM OXIDE 400 MG TAB GTB SCH (17:53)
[2016-10-13] MEDS ORDERED: MAGNESIUM SULFATE 1 GM/D5W 100 ML IVPB ONE (18:30)
--- NOTE | 2016-10-13 21:16 | CONS ---
Date/Time of Note Date/Time of Note DATE: 10/13/16 TIME: 21:14 Assessment/Plan Assessment/Plan Chief Complaint/Hosp Course 89-year-old female with a history of diabetes mellitus, hypertension, atrial fibrillation had a stroke a few days ago for which she was hospitalized at [facility]. Swallow study was done patient failed swallow study so NG tube was passed and was transferred to retirement. Patient was supposed to have a G-tube as outpatient but in the interim she aspirated became septic and was brought to the emergency room and admitted to [facility]. Patient is nonverbal. All the information gathered by reviewing the chart. Problems: Additional Assessment/Plan Additional Assessment/Plan 1. CVA status post TPA at [facility] 2. Left hemiplegia 3. Dysphagia 4. Prerenal azotemia 5. Anemia 6. Diabetes mellitus 7. Hypertension 8. Atrial fibrillation 9. Possible aspiration pneumonia 10. 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 11.s/p PEG Plan increase feeding slowly aspiration precaution continue present care no evidence of acute bleeding Consultation Date/Type/Reason Admit Date/Time Oct 07, 2016 at 22:49 Initial Consult Date 10/08/16 Type of Consultation: hemeon Referring Provider: YASIR HART MD 24 HR Interval Summary Subjective hx not possible: pt non-verbal Exam/Review of Systems Vital Signs Vitals Vital Signs Date Time Temp Pulse Resp B/P Pulse Ox O2 Delivery O2 Flow Rate FiO2 10/13/16 16:00 79 10/13/16 15:48 20 96 21 10/13/16 15:45 97.8 122/70 10/12/16 20:30 Nasal Cannula 2.0 Intake and Output 10/12/16 10/12/16 10/13/16 14:59 22:59 06:59 Intake Total 850 ml 850 ml Output Total 1400 ml 1000 ml Balance -550 ml -150 ml Exam Constitutional: alert, oriented, well developed Psych: nl mood/affect, no complaints Head: atraumatic, normocephalic Eyes: EOMI, PERRL, nl conjunctiva, nl lids, nl sclera ENMT: nl external ears & nose, nl lips & teeth, nl nasal mucosa & septum Neck: non-tender, supple Respiratory: clear to auscultation, normal air movement Cardiovascular: nl pulses, regular rate and rhythm Gastrointestinal: nl liver, spleen, non-tender, soft Musculoskeletal: nl extremities to inspection, nl gait and stance Extremities: normal pulses 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: BLEACHER [place] PULP II-XII intact, nl mental status, nl speech, nl strength Skin: nl turgor, No rash or lesions Lymph: nl lymph nodes Results Result Diagram: 10/13/1672710/13/16727 Results 24 hrs Laboratory Tests Test 10/13/16 07:28 White Blood Count 11.9 #H Red Blood Count 3.31 L Hemoglobin 9.7 L Hematocrit 29.5 L Mean Corpuscular Volume 89.1 Mean Corpuscular Hemoglobin 29.3 Mean Corpuscular Hemoglobin Concent 32.9 Red Cell Distribution Width 12.7 Platelet Count 278 # Mean Platelet Volume 10.1 Neutrophils % Segmented Neutrophils % (Manual) 78 H Lymphocytes % Lymphocytes % (Manual) 8 L Monocytes % Monocytes % (Manual) 7 Eosinophils % Eosinophils % (Manual) 2 Basophils % Metamyelocytes % (manual) 3 H Nucleated Red Blood Cells % 0.0 Neutrophils # (Manual) Absolute Lymphocytes (Manual) 0.9 Lymphocytes # Monocytes # Absolute Monocytes (Manual) 0.8 Eosinophils # Basophils # Metamyelocytes # 0.3 H Nucleated Red Blood Cells # Platelet Estimate NORMAL Hypochromasia 1+ Poikilocytosis 1+ Anisocytosis 1+ Ovalocytes 1+ Sodium Level 135 Potassium Level 4.7 Chloride Level 98 Carbon Dioxide Level 27 Anion Gap 15 Blood Urea Nitrogen 28 H Creatinine 0.97 Glucose Level 126 Calcium Level 9.3 Phosphorus Level 3.5 Magnesium Level 1.6 L Total Bilirubin 0.4 Direct Bilirubin 0.00 Indirect Bilirubin 0.4 Aspartate Amino Transf (AST/SGOT) 37 Alanine Aminotransferase (ALT/SGPT) 49 Alkaline Phosphatase 87 Total Protein 6.5 Albumin 3.3 Globulin 3.20 Albumin/Globulin Ratio 1.03 Medications Medications Current Medications Acetaminophen (Tylenol Supp) 325 mg Q8 PRN [place] FEVER; Start 10/08/16 at 00:30 Metoprolol Tartrate (Lopressor) 50 mg BID NGT Last administered on 10/13/16 08 :12; Admin Dose 50 MG; Start 10/09/16 at 21:00 Hydralazine HCl (Apresoline) 10 mg Q6H PRN IV ELEVATED BLOOD PRESSURE; Start at 13:30 Ferrous Sulfate (Feosol Liquid Cup) 300 mg DAILY NGT Last administered on 08:12; Admin Dose 300 MG; Start 10/10/16 at 09:00 Famotidine (Pepcid) 20 mg DAILY NGT Last administered on 10/13/16 08:13; Admin Dose 20 MG; Start 10/10/16 at 09:00 Amlodipine Besylate (Norvasc) 5 mg DAILY PO Last administered on 10/13/16 08: 13; Admin Dose 5 MG; Start 10/10/16 at 13:30 Clopidogrel Bisulfate (plaVIX) 75 mg DAILY GTB Last administered on 10/13/16 08:13; Admin Dose 75 MG; Start 10/11/16 at 09:00 Clonidine HCl (Catapres-Tts 1 Patch) 1 patch Q7D TRANSDERM Last administered on 10/10/16 21:57; Admin Dose 1 PATCH; Start 10/10/16 at 21:00 Levofloxacin (Levaquin) 500 mg DAILY@06 GTB Last administered on 10/13/16 06: 18; Admin Dose 500 MG; Start 10/12/16 at 10:00 Clindamycin HCl (Cleocin) 300 mg Q8 PO Last administered on 10/13/16 13:56; Admin Dose 300 MG; Start 10/12/16 at 10:00 Prednisone (Prednisone) 10 mg ONCE ONCE GTB ; Start 10/14/16 at 09:00; Stop at 09:01 Potassium Chloride (Potassium Chloride Pwd/Soln) 20 meq BID PO Last administered on 10/13/16 08:12; Admin Dose 20 MEQ; Start 10/12/16 at 10:10 Magnesium Oxide (Mag-Ox 400) 400 mg DAILY GTB Last administered on 10/13/16 17 :53; Admin Dose 400 MG; Start 10/13/16 at 16:00 SANTOS GARCIA MD Oct 13, 2016 21:16
[2016-10-14] MEDS: CLINDAMYCIN 300 MG CAP PO SCH ×3 (06:43→20:14)
[2016-10-14] MEDS: LEVOFLOXACIN 500 MG TAB GTB SCH (06:45)
[2016-10-14] MEDS: ALBUTEROL 0.083% (NEB) 2.5 MG/3 ML AMP HHN SCH ×3 (07:36→23:01)
[2016-10-14] MEDS: IPRATROPIUM (NEB) 0.5 MG/2.5 ML AMP HHN SCH ×3 (07:36→23:01)
[2016-10-14 08:02] VITALS: BP 120/59; RESP 20
[2016-10-14] MEDS ORDERED: predniSONE 10 MG TAB GTB SCH (09:00)
[2016-10-14] MEDS ORDERED: predniSONE 10 MG TAB GTB ONE (09:00)
[2016-10-14] MEDS: POTASSIUM CHLORIDE 20 MEQ POWDER FOR ORAL SOLN PO SCH ×2 (09:00→20:13)
--- NOTE | 2016-10-14 09:09 | DS ---
Date/Time of Note Date/Time of Note DATE: 10/14/16 TIME: 08:53 Discharge Summary Admission/Discharge Info Admit Date/Time Oct 07, 2016 at 22:49 Discharge Date/Time ALEJANDRINA to transfer to rehab. After the stroke and dysphagia with left weakness she was fee though NGT for almost 2 weeks a developed aspiration pneumonia with uti, uncontrolled BP and persistent dysphagia. Remarkable goot progress while in [facility] that even the family members were unable to to comprehend her expressed sounds most of the time, today she was very clear that her throat is sore, that the taste is very bad and why they don't give me enough water. Denied f/ c, no n/v. Still unable to move left upper extremity but is more active with right upper extremity. Unable to turn herself without help. Unable to remember what and when happened the stroke. Discussed with rehab. dept. plan to transfer. Discharge Diagnosis 1.CVA with left hemiplegia 3 weeks ago, s/p TPA 09/28; was in ICU of [facility] with involuntary movements of the left upper extremity. 2.S/P G tube placement-feeding continue at 40cc/hr. 3.Lactic acidosis- improved 4.ATN with improvement 5.Sepsis-aspiration pneumonia and /or URI/uti-improving 6.Severe PAD with carotid bruits bilaterally 7.DM type 2 new onset 8.Dysphagia, dysarthria, s/p failed one swallowing evaluation , now vith goot verbalisationa nd positive gag reflex. 9.Lethargic- more alert. 10.Iron deficiency- continue supplementation. 11.Anemia of chronic disease- drop of hct to 25- continue iron supplementation 12.Atrial fibrillation with controlled ventricular rate- unknown time duration 13.PTSD after acute stress months ago 14.S/P midline laparotomy with cholecystectomy 15.Hematuria- cleared ad oculus and uti improving 16.Urinary incontinence- with Arevalo drains clear urine. 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 22.Low magnesium, vit "D" and iron levels Patient Condition: Serious Procedures G-tube placement. Hx of Present Illness Unable to provide information. Initially was seen 5 days ago in SNF. Discussed with the daughter Samantha to transfer the patient to [facility] for NGT removal and G tube placement. 2 days ago I arrange with dr. Zuniga the details. When I inform the family it become clear that the patient earlier, before developing a stroke about 10 days ago and was treated in [facility], she didn't want any "tubes" or "machines" to be attached to her body. I explained the family by doing that we will starve her to . Son said it's ok. Lather I talked with Samantha again, about G-tube issue. She also changed her mind and said no tubes please. I ordered to remove the NGT but it was not done. Worsening of sob and tachycardia according to RN report from [facility]. Condition was deterioration rather rapidly with drop of BP. I recommended to transfer to hospital.Now she is apparently septic and will follow as such with code status DNR and DNI. Hospital Course Chronic atrial fibrillation: Had rapid rates on admission, now better after IVF and antibiotics. Controlled Aspiration PNA ARF: resolved Recent CVA s/p TPA DM HTN -metoprolol 50mg BID -amlodipine 5mg -started on plavix (would prefer anticoagulation with coumadin or NOAC with pt' s h/o stroke and high risk for recurrence) -antibiotics per primary Home Meds Reported Medications Insulin Human Regular (Novolin-R U-100) 100 Unit/Ml Soln, 0 SC SLIDING SCALE AC , EA IF BS IS LESS THAN 70,CALL MD: 71-200=0 UNITS,201-250=3UNITS,251-300=5 UNITS,301-350=7 UNITS,351-400=9 UNITS. IF BS GREATER THAN 400=10 UNITS AND CALL . 10/07/16 Rivaroxaban* (Xarelto*) 10 Mg Tablet, 10 MG NG-TUBE Q9AM, TAB 10/07/16 Ferrous Sulfate* (Ferrous Sulfate*) 325 Mg Tabec, 325 MG NG-TUBE Q9AM, TAB 10/07/16 Warfarin Sodium* (Coumadin*) 5 Mg Tablet, 5 MG NG-TUBE Q5PM, TAB 10/07/16 Aspirin* (Aspirin* Chew) 81 Mg Tab.chew, 81 MG NG-TUBE DAILY, TAB.CHEW END DATE 10/11/16 10/07/16 Acetaminophen* (Acetaminophen*) 500 MG Extra Strength Tablet, 500 MG NG-TUBE Q6H Y for PAIN AND OR ELEVATED TEMP, TAB 10/07/16 Atorvastatin* (Atorvastatin*) 40 Mg Tablet, 40 MG NG-TUBE Q9PM, #30 TAB 10/07/16 Multivit,Tx,Iron/Calcm/FA/Mins (Thera-M Caplet) 1 Each Tablet, 1 EACH NG-TUBE Q9AM, TAB 10/07/16 Pantoprazole* (Protonix*) 40 Mg Tablet.dr, 40 MG NG-TUBE Q6:30AM, TAB 10/07/16 Metoprolol Tartrate* (Lopressor*) 50 Mg Tab, 50 MG NG-TUBE BID, #60 TAB HOLD FOR SBP<100 OR HR<60 10/07/16 Cyanocobalamin* (Vitamin B12*) 500 Mcg Tab, 250 MCG NG-TUBE Q9AM, TAB 10/07/16 Clonidine Hcl* (Clonidine Hcl*) 0.1 Mg Tab, 0.1 MG NG-TUBE Q9AM Y for HTN, TAB HOLD FOR ABP<100 10/07/16 Bisacodyl* (Bisacodyl*) 10 Mg Supp, 10 MG TX Q24H for CONSTIPATION, SUPP 10/07/16 Discontinued Reported Medications Acetaminophen* (Acetaminophen*) 500 MG Extra Strength Tablet, 500 MG PO Q6H Y for PAIN, TAB 10/07/16 Hydrochlorothiazide (Hydrochlorothiazide) 25 Mg Tablet 08/25/10 Meclizine Hcl (D-Vert) 25 Mg Tablet 08/25/10 Pramipexole* (Mirapex*) 0.125 Mg Tablet 08/25/10 Aspirin (Adult Aspirin) 81 Mg Tab.chew 08/25/10 Clonidine Hcl* (Clonidine Hcl*) 0.1 Mg Tab 08/25/10 Valsartan-Hydrochlorothiazide (Diovan HCT) 1 Tab Tablet 08/25/10 Esomeprazole Mag Trihydrate (Nexium) 40 Mg Capsule. 08/25/10 Amlodipine Besylate* (Amlodipine Besylate*) 5 Mg Tablet 08/25/10 Follow-up Plan Rehabilitation. Primary Care Provider Yasir Argueta MD Time spent on discharge: > 30 minutes YASIR ARGUETA MD Oct 14, 2016 09:07
[2016-10-14] MEDS: MAGNESIUM OXIDE 400 MG TAB GTB SCH (09:43)
[2016-10-14] MEDS: FERROUS SULFATE 60 MG/ML 5ML CUP NGT SCH (09:43)
[2016-10-14] MEDS: CLOPIDOGREL 75 MG TAB GTB SCH (09:43)
[2016-10-14] MEDS: FAMOTIDINE 20 MG TAB NGT SCH (09:43)
[2016-10-14] MEDS: METOPROLOL 50 MG TAB NGT SCH ×2 (09:44→20:14)
[2016-10-14] MEDS: AMLODIPINE 5 MG TAB PO SCH (09:44)
--- NOTE | 2016-10-14 11:22 | CONS ---
Date/Time of Note Date/Time of Note DATE: 10/14/16 TIME: 11:21 Assessment/Plan Assessment/Plan Chief Complaint/Hosp Course Chronic atrial fibrillation: Had rapid rates on admission, now better after IVF and antibiotics. Controlled Aspiration PNA ARF: resolved Recent CVA s/p TPA DM HTN -metoprolol 50mg BID -amlodipine 5mg -started on plavix (would prefer anticoagulation with coumadin or NOAC with pt' s h/o stroke and high risk for recurrence) -antibiotics per primary Problems: Consultation Date/Type/Reason Admit Date/Time Oct 07, 2016 at 22:49 Initial Consult Date 10/08/16 Type of Consultation: Cardiology Referring Provider: YASIR HART MD 24 HR Interval Summary Free Text/Dictation No o/n events. Awaiting placement Exam/Review of Systems Vital Signs Vitals Vital Signs Date Time Temp Pulse Resp B/P Pulse Ox O2 Delivery O2 Flow Rate FiO2 10/14/16 08:02 98.8 72 20 120/59 98 10/14/16 07:40 21 10/13/16 21:00 Nasal Cannula 2.0 Intake and Output 10/13/16 10/13/16 10/14/16 15:00 23:00 07:00 Intake Total 730 ml Output Total 1300 ml Balance -570 ml Exam Constitutional: alert, No oriented Head: atraumatic, normocephalic Neck: supple, No jvd Respiratory: clear to auscultation, No crackles/rales Cardiovascular: No edema, No regular rate and rhythm, No systolic murmur Gastrointestinal: non-tender, soft 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: No nl mental status, No nl speech Results Result Diagram: 10/13/1628 10/13/16 0728 Results 24 hrs Laboratory Tests Test 10/14/16 09:49 Bedside Glucose 122 Medications Medications Current Medications Acetaminophen (Tylenol Supp) 325 mg Q8 PRN [place] FEVER; Start 10/08/16 at 00:30 Metoprolol Tartrate (Lopressor) 50 mg BID NGT Last administered on 10/14/16t 09 :44; Admin Dose 50 MG; Start 10/09/16 at 21:00 Hydralazine HCl (Apresoline) 10 mg Q6H PRN IV ELEVATED BLOOD PRESSURE; Start at 13:30 Ferrous Sulfate (Feosol Liquid Cup) 300 mg DAILY NGT Last administered on 09:43; Admin Dose 300 MG; Start 10/10/16 at 09:00 Famotidine (Pepcid) 20 mg DAILY NGT Last administered on 10/14/16 09:43; Admin Dose 20 MG; Start 10/10/16 at 09:00 Amlodipine Besylate (Norvasc) 5 mg DAILY PO Last administered on 10/14/16 09: 44; Admin Dose 5 MG; Start 10/10/16 at 13:30 Clopidogrel Bisulfate (plaVIX) 75 mg DAILY GTB Last administered on 10/14/16 09:43; Admin Dose 75 MG; Start 10/11/16 at 09:00 Clonidine HCl (Catapres-Tts 1 Patch) 1 patch Q7D TRANSDERM Last administered on 10/10/16 21:57; Admin Dose 1 PATCH; Start 10/10/16 at 21:00 Levofloxacin (Levaquin) 500 mg DAILY@06 GTB Last administered on 10/14/16 06: 45; Admin Dose 500 MG; Start 10/12/16 at 10:00 Clindamycin HCl (Cleocin) 300 mg Q8 PO Last administered on 10/14/16 06:43; Admin Dose 300 MG; Start 10/12/16 at 10:00 Potassium Chloride (Potassium Chloride Pwd/Soln) 20 meq BID PO Last administered on 10/13/16 23:02; Admin Dose 20 MEQ; Start 10/12/16 at 10:10 Magnesium Oxide (Mag-Ox 400) 400 mg DAILY GTB Last administered on 10/14/16 09 :43; Admin Dose 400 MG; Start 10/13/16 at 16:00 ADAN BLAIR Oct 14, 2016 11:22
[2016-10-14 11:53] VITALS: BP 134/62; RESP 20
[2016-10-14 15:15] VITALS: BP 113/59; RESP 18
[2016-10-14 19:48] VITALS: BP 140/61; RESP 18
--- NOTE | 2016-10-14 20:48 | CONS ---
Date/Time of Note Date/Time of Note DATE: 10/14/16 TIME: 20:47 Assessment/Plan Assessment/Plan Chief Complaint/Hosp Course 89-year-old female with a history of diabetes mellitus, hypertension, atrial fibrillation had a stroke a few days ago for which she was hospitalized at [facility]. Swallow study was done patient failed swallow study so NG tube was passed and was transferred to custodial. Patient was supposed to have a G-tube as outpatient but in the interim she aspirated became septic and was brought to the emergency room and admitted to [facility]. Patient is nonverbal. All the information gathered by reviewing the chart. Problems: Additional Assessment/Plan Additional Assessment/Plan Additional Assessment/Plan 1. CVA status post TPA at [facility] 2. Left hemiplegia 3. Dysphagia 4. Prerenal azotemia 5. Anemia 6. Diabetes mellitus 7. Hypertension 8. Atrial fibrillation 9. Possible aspiration pneumonia 10. 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 11.s/p PEG Plan increase feeding slowly aspiration precaution continue present care Patient is on Plavix now no evidence of acute bleeding Consultation Date/Type/Reason Admit Date/Time Oct 07, 2016 at 22:49 Initial Consult Date 10/08/16 Type of Consultation: Cardiology Referring Provider: YASIR HART MD 24 HR Interval Summary Constitutional: no complaints Exam/Review of Systems Vital Signs Vitals Vital Signs Date Time Temp Pulse Resp B/P Pulse Ox O2 Delivery O2 Flow Rate FiO2 10/14/16 19:48 98.4 91 18 140/61 97 10/14/16 15:22 21 10/13/16 21:00 Nasal Cannula 2.0 Intake and Output 10/13/16 10/13/16 10/14/16 15:00 23:00 07:00 Intake Total 730 ml Output Total 1300 ml Balance -570 ml Exam Constitutional: alert, oriented, well developed Psych: nl mood/affect, no complaints Head: atraumatic, normocephalic Eyes: EOMI, PERRL, nl conjunctiva, nl lids, nl sclera ENMT: nl external ears & nose, nl lips & teeth, nl nasal mucosa & septum Neck: non-tender, supple Respiratory: clear to auscultation, normal air movement Cardiovascular: nl pulses, regular rate and rhythm Gastrointestinal: nl liver, spleen, non-tender, soft Musculoskeletal: nl extremities to inspection, nl gait and stance Extremities: normal pulses 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: DYE BLENDER II-XII intact, nl mental status, nl speech, nl strength Skin: nl turgor, No rash or lesions Lymph: nl lymph nodes Results Result Diagram: 10/13/1672710/13/16727 Results 24 hrs Laboratory Tests Test 10/14/16 09:49 10/14/16 12:38 10/14/16 17:08 Bedside Glucose 122 147 133 Medications Medications Current Medications Acetaminophen (Tylenol Supp) 325 mg Q8 PRN [place] FEVER; Start 10/08/16 at 00:30 Metoprolol Tartrate (Lopressor) 50 mg BID NGT Last administered on 10/14/16 20 :14; Admin Dose 50 MG; Start 10/09/16 at 21:00 Hydralazine HCl (Apresoline) 10 mg Q6H PRN IV ELEVATED BLOOD PRESSURE; Start at 13:30 Ferrous Sulfate (Feosol Liquid Cup) 300 mg DAILY NGT Last administered on 09:43; Admin Dose 300 MG; Start 10/10/16 at 09:00 Famotidine (Pepcid) 20 mg DAILY NGT Last administered on 10/14/16 09:43; Admin Dose 20 MG; Start 10/10/16 at 09:00 Amlodipine Besylate (Norvasc) 5 mg DAILY PO Last administered on 10/14/16 09: 44; Admin Dose 5 MG; Start 10/10/16 at 13:30 Clopidogrel Bisulfate (plaVIX) 75 mg DAILY GTB Last administered on 10/14/16 09:43; Admin Dose 75 MG; Start 10/11/16 at 09:00 Clonidine HCl (Catapres-Tts 1 Patch) 1 patch Q7D TRANSDERM Last administered on 10/10/16 21:57; Admin Dose 1 PATCH; Start 10/10/16 at 21:00 Levofloxacin (Levaquin) 500 mg DAILY@06 GTB Last administered on 10/14/16 06: 45; Admin Dose 500 MG; Start 10/12/16 at 10:00 Clindamycin HCl (Cleocin) 300 mg Q8 PO Last administered on 10/14/16 20:14; Admin Dose 300 MG; Start 10/12/16 at 10:00 Potassium Chloride (Potassium Chloride Pwd/Soln) 20 meq BID PO Last administered on 10/14/16 20:13; Admin Dose 20 MEQ; Start 10/12/16 at 10:10 Magnesium Oxide (Mag-Ox 400) 400 mg DAILY GTB Last administered on 10/14/16 09 :43; Admin Dose 400 MG; Start 10/13/16 at 16:00 SANTOS GARCIA MD Oct 14, 2016 20:48
--- NOTE | 2016-10-14 21:07 | CONS ---
Date/Time of Note Date/Time of Note DATE: 10/14/16 TIME: 21:04 Assessment/Plan Assessment/Plan Chief Complaint/Hosp Course 89 F with PMhx of HTN, Type II DM, h/o atrial fibrillation, H/o CVA with left hemiplegia 2weeks ago, s/p TPA, was admitted [facility], severe PAD with Caroid atherosclerosis, Dysphagia failed swallow evalatio, admitted for sepsis, Aspiration PNA and lactic acidosis. Renal has been consulted for VERO on CKD< hyperkalemia Problems: Additional Assessment/Plan 1. acute kidney injury on CKD, renal us showed -Atrophic right kidney. 2. sepsis, possibley due to Aspiration PNA s/p G tube placement now 3. HTN 4. Type II DM 5. H/o recent CVA s/p tPA at [facility] 6. atrial fibrillation with intermittently elevated HR 7. Hypernatremia- change IVF- D51/2 NS at 60 cc/hr 8. Hypokalemia- BMP to fu 9. Anemia- Monitor cbc,transfuse PRN Plan: continue PO magnesium and PO KCL Urine studies, and Uric acid unremarkable BP stable renal us showed -Atrophic right kidney. will continue to follow up on patient SNF placment in process Consultation Date/Type/Reason Admit Date/Time Oct 07, 2016 at 22:49 Initial Consult Date 10/08/16 Type of Consultation: Nephrology Referring Provider: YASIR HART MD 24 HR Interval Summary Free Text/Dictation no acute events, pt denied for acute rehab, eletrolytes and Cr normal Exam/Review of Systems Vital Signs Vitals Vital Signs Date Time Temp Pulse Resp B/P Pulse Ox O2 Delivery O2 Flow Rate FiO2 10/14/16 19:48 98.4 91 18 140/61 97 10/14/16 15:22 21 10/13/16 21:00 Nasal Cannula 2.0 Intake and Output 10/13/16 10/13/16 10/14/16 15:00 23:00 07:00 Intake Total 730 ml Output Total 1300 ml Balance -570 ml Results Result Diagram: 10/13/16 0728 10/13/16 0728 Results 24 hrs Laboratory Tests Test 10/14/16 09:49 10/14/16 12:38 10/14/16 17:08 Bedside Glucose 122 147 133 Medications Medications Current Medications Acetaminophen (Tylenol Supp) 325 mg Q8 PRN [place] FEVER; Start 10/08/16 at 00:30 Metoprolol Tartrate (Lopressor) 50 mg BID NGT Last administered on 10/14/16 20 :14; Admin Dose 50 MG; Start 10/09/16 at 21:00 Hydralazine HCl (Apresoline) 10 mg Q6H PRN IV ELEVATED BLOOD PRESSURE; Start at 13:30 Ferrous Sulfate (Feosol Liquid Cup) 300 mg DAILY NGT Last administered on 09:43; Admin Dose 300 MG; Start 10/10/16 at 09:00 Famotidine (Pepcid) 20 mg DAILY NGT Last administered on 10/14/16 09:43; Admin Dose 20 MG; Start 10/10/16 at 09:00 Amlodipine Besylate (Norvasc) 5 mg DAILY PO Last administered on 10/14/16 09: 44; Admin Dose 5 MG; Start 10/10/16 at 13:30 Clopidogrel Bisulfate (plaVIX) 75 mg DAILY GTB Last administered on 10/14/16 09:43; Admin Dose 75 MG; Start 10/11/16 at 09:00 Clonidine HCl (Catapres-Tts 1 Patch) 1 patch Q7D TRANSDERM Last administered on 10/10/16 21:57; Admin Dose 1 PATCH; Start 10/10/16 at 21:00 Levofloxacin (Levaquin) 500 mg DAILY@06 GTB Last administered on 10/14/16 06: 45; Admin Dose 500 MG; Start 10/12/16 at 10:00 Clindamycin HCl (Cleocin) 300 mg Q8 PO Last administered on 10/14/16 20:14; Admin Dose 300 MG; Start 10/12/16 at 10:00 Potassium Chloride (Potassium Chloride Pwd/Soln) 20 meq BID PO Last administered on 10/14/16 20:13; Admin Dose 20 MEQ; Start 10/12/16 at 10:10 Magnesium Oxide (Mag-Ox 400) 400 mg DAILY GTB Last administered on 10/14/16 09 :43; Admin Dose 400 MG; Start 10/13/16 at 16:00 MAINOR HUTCHISON MD Oct 14, 2016 21:07
--- NOTE | 2016-10-14 23:26 | CONS ---
Date/Time of Note Date/Time of Note DATE: 10/14/16 TIME: 23:25 Assessment/Plan Assessment/Plan Chief Complaint/Hosp Course ANEMIA N- CYTIC WITH N RDW WITH DROP H/H DURING HOSPITALIZATION MONITOR BLOOD COUNT CLOSELY OBSERVE FOR BLEEDING AND HEMOLYSIS + COMPONENT ACD CHECK BLOOD COUNT IN AM acute kidney injury on CKD sepsis, dysphagia, aspiration PNA HTN Type II DM H/o recent CVA s/p tPA at [facility] atrial fibrillation with intermittently elevated HR Problems: Consultation Date/Type/Reason Admit Date/Time Oct 07, 2016 at 22:49 Initial Consult Date 10/08/16 Type of Consultation: hemeonc Referring Provider: YASIR HART MD 24 HR Interval Summary Free Text/Dictation ALL NOTED Exam/Review of Systems Vital Signs Vitals Vital Signs Date Time Temp Pulse Resp B/P Pulse Ox O2 Delivery O2 Flow Rate FiO2 10/14/16 23:01 68 20 98 21 10/14/16 19:48 98.4 140/61 10/13/16 21:00 Nasal Cannula 2.0 Intake and Output 10/13/16 10/13/16 10/14/16 15:00 23:00 07:00 Intake Total 730 ml Output Total 1300 ml Balance -570 ml Exam Constitutional: non-verbal Psych: no complaints Head: normocephalic Eyes: nl conjunctiva Respiratory: congested cough, crackles/rales, diminished breath sounds Cardiovascular: irregular rhythm, regular rate and rhythm Gastrointestinal: non-tender, soft Musculoskeletal: joint tenderness, muscle weakness, range of motion, swelling 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: lethargic, unresponsive Skin: nl turgor Lymph: nl lymph nodes Results Result Diagram: 10/13/1628 10/13/1628 Results 24 hrs Laboratory Tests Test 10/14/16 09:49 10/14/16 12:38 10/14/16 17:08 Bedside Glucose 122 147 133 Medications Medications Current Medications Acetaminophen (Tylenol Supp) 325 mg Q8 PRN [place] FEVER; Start 10/08/16 at 00:30 Metoprolol Tartrate (Lopressor) 50 mg BID NGT Last administered on 10/14/16t 20 :14; Admin Dose 50 MG; Start 10/09/16 at 21:00 Hydralazine HCl (Apresoline) 10 mg Q6H PRN IV ELEVATED BLOOD PRESSURE; Start at 13:30 Ferrous Sulfate (Feosol Liquid Cup) 300 mg DAILY NGT Last administered on 09:43; Admin Dose 300 MG; Start 10/10/16 at 09:00 Famotidine (Pepcid) 20 mg DAILY NGT Last administered on 10/14/16 09:43; Admin Dose 20 MG; Start 10/10/16 at 09:00 Amlodipine Besylate (Norvasc) 5 mg DAILY PO Last administered on 10/14/16 09: 44; Admin Dose 5 MG; Start 10/10/16 at 13:30 Clopidogrel Bisulfate (plaVIX) 75 mg DAILY GTB Last administered on 10/14/16 09:43; Admin Dose 75 MG; Start 10/11/16 at 09:00 Clonidine HCl (Catapres-Tts 1 Patch) 1 patch Q7D TRANSDERM Last administered on 10/10/16 21:57; Admin Dose 1 PATCH; Start 10/10/16 at 21:00 Levofloxacin (Levaquin) 500 mg DAILY@06 GTB Last administered on 10/14/16 06: 45; Admin Dose 500 MG; Start 10/12/16 at 10:00 Clindamycin HCl (Cleocin) 300 mg Q8 PO Last administered on 10/14/16 20:14; Admin Dose 300 MG; Start 10/12/16 at 10:00 Potassium Chloride (Potassium Chloride Pwd/Soln) 20 meq BID PO Last administered on 10/14/16 20:13; Admin Dose 20 MEQ; Start 10/12/16 at 10:10 Magnesium Oxide (Mag-Ox 400) 400 mg DAILY GTB Last administered on 10/14/16 09 :43; Admin Dose 400 MG; Start 10/13/16 at 16:00 TORRI HARLEY MD Oct 14, 2016 23:25
[2016-10-14 23:51] VITALS: BP 156/73; RESP 18
[2016-10-15] MEDS: LEVOFLOXACIN 500 MG TAB GTB SCH (06:15)
[2016-10-15] MEDS: CLINDAMYCIN 300 MG CAP PO SCH ×3 (06:15→21:15)
[2016-10-15 07:47] VITALS: BP 115/58; RESP 18
[2016-10-15] MEDS: IPRATROPIUM (NEB) 0.5 MG/2.5 ML AMP HHN SCH ×2 (08:56→16:03)
[2016-10-15] MEDS: ALBUTEROL 0.083% (NEB) 2.5 MG/3 ML AMP HHN SCH ×2 (08:57→16:04)
--- NOTE | 2016-10-15 09:05 | PN ---
Date/Time of Note Date/Time of Note DATE: 10/15/16 TIME: 09:00 Assessment/Plan VTE Prophylaxis VTE Prophylaxis Intervention: ambulation, anti-embolic stocking VTE Contraindication Reason: peripheral vascular disease Lines/Catheters IV Catheter Type (from Nrsg): [place] [employer] [place] line still needed: No Urinary Cath still in place: Yes Reason Cath still needed: urinary retention Assessment/Plan Chief Complaint/Hosp Course Chronic atrial fibrillation: Had rapid rates on admission, now better after IVF and antibiotics. Controlled Aspiration PNA ARF: resolved Recent CVA s/p TPA DM HTN -metoprolol 50mg BID -amlodipine 5mg -started on plavix (would prefer anticoagulation with coumadin or NOAC with pt' s h/o stroke and high risk for recurrence) -antibiotics per primary Problems: Assessment/Plan 1.CVA with left hemiplegia 3 weeks ago, s/p TPA 09/28; was in ICU of [facility] with involuntary movements of the left upper extremity. 2.S/P G tube placement-feeding continue at 40cc/hr. 3.Lactic acidosis- improved 4.ATN with improvement 5.Sepsis-aspiration pneumonia and /or URI/uti-improving 6.Severe PAD with carotid bruits bilaterally 7.DM type 2 new onset 8.Dysphagia, dysarthria, s/p failed one swallowing evaluation , now vith goot verbalisationa nd positive gag reflex. 9.Lethargic- more alert. 10.Iron deficiency- continue supplementation. 11.Anemia of chronic disease- drop of hct to 25- continue iron supplementation 12.Atrial fibrillation with controlled ventricular rate- unknown time duration 13.PTSD after acute stress months ago 14.S/P midline laparotomy with cholecystectomy 15.Hematuria- cleared ad oculus and uti improving 16.Urinary incontinence- with Arevalo drains clear urine. 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 22.Low magnesium, vit "D" and iron levels Cont'd Hospitalization Reason: awaaaaiting transfer to rehab. Subjective 24 Hr Interval Summary Free Text/Dictation Drtyness of the mouth. I am weak. Bad, soreness of the throat. Constitutional: poor po, No chills, No diaphoresis, No disoriented, No febrile, No improved, No no complaints, No other, No requiring IVF, No requiring O2 Eyes: No discharge, No no complaints, No other, No pain, No redness, No visual change ENT: congestion, sore throat, No bleeding, No discharge, No dysphagia, No no complaints, No other, No pain Respiratory: No cough, No no complaints, No other, No pain, No pleuritic pain, No shortness of breath, No sputum, No wheezing Cardiovascular: palpitations, No chest pain, No edema, No lightheadedness, No no complaints, No orthopenea , No other, No paroxysmal nocturnal dyspnea Gastrointestinal: flatus, pain, passing stool, No blood, No constipation, No decreased appetite, No diarrhea, No nausea, No no complaints, No other, No vomiting Genitourinary: No bleeding, No discharge, No dysuria, No flank pain, No hematuria, No no complaints, No other Musculoskeletal: back pain, bone/joint pain, neck pain, No no complaints, No other, No restricted range of motion, No swelling Skin: pruritis, rash, No bruising, No erythema, No laceration, No no complaints, No other, No skin lesions Neurologic: focal-weakness, No confusion, No dizziness, No headache, No no complaints, No other, No seizure, No syncope Exam/Review of Systems Vital Signs Vitals Vital Signs Date Time Temp Pulse Resp B/P Pulse Ox O2 Delivery O2 Flow Rate FiO2 10/15/16 07:47 98.1 75 18 115/58 99 10/14/16 23:01 21 10/13/16 21:00 Nasal Cannula 2.0 Intake and Output 10/14/16 10/14/16 10/15/16 15:00 23:00 07:00 Intake Total 1450 ml 90 ml Output Total 1770 ml 400 ml Balance -320 ml -310 ml Exam Constitutional: alert, frail, oriented, well developed, No distress, No non-verbal, No obese, No other Psych: anxiety, nl mood/affect, No confusion, No depression, No no complaints, No other, No suicidal Head: atraumatic, normocephalic, No hematomas, No lacerations, No other Eyes: EOMI (resricted left gase.), PERRL, nl lids, No fundi, disc, No icteric, No nl conjunctiva, No nl sclera, No other ENMT: nl external ears & nose, nl nasal mucosa & septum, No intubated, No mucosa pink and moist, No nl lips & teeth, No other, No tympanic membranes Neck: bruits, nuchal rigidity, No jvd, No masses, No non-tender, No other, No supple, No thyromegaly Respiratory: clear to auscultation, congested cough, diminished breath sounds, labored breathing, No crackles/rales, No intercostal retraction, No normal air movement, No other, No respirations, No tactile fremitus, No wheezing Cardiovascular: bruits, irregular rhythm, jugular venous distention (JVD), systolic murmur, No S3, No S4, No diastolic murmur, No edema, No gallop, No murmurs/extra sounds, No nl pulses, No other, No regular rate and rhythm, No rub Gastrointestinal: bowel sounds, soft, surgical scars (G tube sitwe is clear. ), No ascites, No distended, No firm, No hepatomegaly, No mass, No nl liver, spleen, No non-tender, No other, No rebound or guarding, No splenomegaly, No tender Genitourinary - Female: No CMT, No CVA tenderness, No nl adnexae, No nl external genitalia, No other, No uterus Musculoskeletal: joint tenderness, muscle tone, muscle weakness Extremities: No calf tenderness, No clubbing, No cyanosis, No edema, No normal pulses, No other, No palpable cord, No pitting pedal edema, No tenderness 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: LION TAMER II-XII intact, focal weakness (left sided.) Skin: diaphoresis, ecchymosis, No laceration, No nl turgor, No other, No puncture, No rash or lesions Results Result Diagram: 10/13/16 0728 10/13/16 0728 Results 24 hrs Laboratory Tests Test 10/14/16 09:49 10/14/16 12:38 10/14/16 17:08 Bedside Glucose 122 147 133 Medications Medications Current Medications Acetaminophen (Tylenol Supp) 325 mg Q8 PRN [place] FEVER; Start 10/08/16 at 00:30 Metoprolol Tartrate (Lopressor) 50 mg BID NGT Last administered on 10/14/16t 20 :14; Admin Dose 50 MG; Start 10/09/16 at 21:00 Hydralazine HCl (Apresoline) 10 mg Q6H PRN IV ELEVATED BLOOD PRESSURE; Start at 13:30 Ferrous Sulfate (Feosol Liquid Cup) 300 mg DAILY NGT Last administered on 09:43; Admin Dose 300 MG; Start 10/10/16 at 09:00 Famotidine (Pepcid) 20 mg DAILY NGT Last administered on 10/14/16 09:43; Admin Dose 20 MG; Start 10/10/16 at 09:00 Amlodipine Besylate (Norvasc) 5 mg DAILY PO Last administered on 10/14/16 09: 44; Admin Dose 5 MG; Start 10/10/16 at 13:30 Clopidogrel Bisulfate (plaVIX) 75 mg DAILY GTB Last administered on 10/14/16 09:43; Admin Dose 75 MG; Start 10/11/16 at 09:00 Clonidine HCl (Catapres-Tts 1 Patch) 1 patch Q7D TRANSDERM Last administered on 10/10/16 21:57; Admin Dose 1 PATCH; Start 10/10/16 at 21:00 Levofloxacin (Levaquin) 500 mg DAILY@06 GTB Last administered on 10/15/16 06: 15; Admin Dose 500 MG; Start 10/12/16 at 10:00 Clindamycin HCl (Cleocin) 300 mg Q8 PO Last administered on 10/15/16 06:15; Admin Dose 300 MG; Start 10/12/16 at 10:00 Potassium Chloride (Potassium Chloride Pwd/Soln) 20 meq BID PO Last administered on 10/14/16 20:13; Admin Dose 20 MEQ; Start 10/12/16 at 10:10 Magnesium Oxide (Mag-Ox 400) 400 mg DAILY GTB Last administered on 10/14/16 09 :43; Admin Dose 400 MG; Start 10/13/16 at 16:00 YASIR HART MD Oct 15, 2016 09:05
[2016-10-15] MEDS: MAGNESIUM OXIDE 400 MG TAB GTB SCH (09:13)
[2016-10-15] MEDS: FERROUS SULFATE 60 MG/ML 5ML CUP NGT SCH (09:14)
[2016-10-15] MEDS: CLOPIDOGREL 75 MG TAB GTB SCH (09:14)
[2016-10-15] MEDS: AMLODIPINE 5 MG TAB PO SCH (09:14)
[2016-10-15] MEDS: FAMOTIDINE 20 MG TAB NGT SCH (09:14)
[2016-10-15] MEDS: METOPROLOL 50 MG TAB NGT SCH ×2 (09:14→21:15)
[2016-10-15] MEDS: POTASSIUM CHLORIDE 20 MEQ POWDER FOR ORAL SOLN PO SCH ×2 (09:15→21:15)
--- NOTE | 2016-10-15 10:48 | CONS ---
Date/Time of Note Date/Time of Note DATE: 10/15/16 TIME: 10:47 Assessment/Plan Assessment/Plan Chief Complaint/Hosp Course 89-year-old female with a history of diabetes mellitus, hypertension, atrial fibrillation had a stroke a few days ago for which she was hospitalized at [facility]. Swallow study was done patient failed swallow study so NG tube was passed and was transferred [facility]. Patient was supposed to have a G-tube as outpatient but in the interim she aspirated became septic and was brought to the emergency room and admitted to [facility] ([facility] Patient is nonverbal. All the information gathered by reviewing the chart. Problems: Additional Assessment/Plan Additional Assessment/Plan 1. CVA status post TPA at [facility] 2. Left hemiplegia 3. Dysphagia 4. Prerenal azotemia 5. Anemia 6. Diabetes mellitus 7. Hypertension 8. Atrial fibrillation 9. Possible aspiration pneumonia 10. 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 11.s/p PEG Plan increase feeding slowly aspiration precaution continue present care Patient is on Plavix now no evidence of acute bleeding No evidence of aspiration Consultation Date/Type/Reason Admit Date/Time Oct 07, 2016 at 22:49 Initial Consult Date 10/08/16 Type of Consultation: hemeon Referring Provider: YASIR HART MD 24 HR Interval Summary Constitutional: no complaints Exam/Review of Systems Vital Signs Vitals Vital Signs Date Time Temp Pulse Resp B/P Pulse Ox O2 Delivery O2 Flow Rate FiO2 10/15/16 08:59 80 20 98 21 10/15/16 07:47 98.1 115/58 10/13/16 21:00 Nasal Cannula 2.0 Intake and Output 10/14/16 10/14/16 10/15/16 15:00 23:00 07:00 Intake Total 1450 ml 90 ml Output Total 1770 ml 400 ml Balance -320 ml -310 ml Exam Constitutional: alert, oriented, well developed Psych: nl mood/affect, no complaints Head: atraumatic, normocephalic Eyes: EOMI, PERRL, nl conjunctiva, nl lids, nl sclera ENMT: nl external ears & nose, nl lips & teeth, nl nasal mucosa & septum Neck: non-tender, supple Respiratory: clear to auscultation, normal air movement Cardiovascular: nl pulses, regular rate and rhythm Gastrointestinal: nl liver, spleen, non-tender, soft Musculoskeletal: nl extremities to inspection, nl gait and stance Extremities: normal pulses 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: SUBSTATION ELECTRICIAN II-XII intact, nl mental status, nl speech, nl strength Skin: nl turgor, No rash or lesions Lymph: nl lymph nodes Results Result Diagram: 10/13/1672710/13/16727 Results 24 hrs Laboratory Tests Test 10/14/16 12:38 10/14/16 17:08 Bedside Glucose 147 133 Medications Medications Current Medications Acetaminophen (Tylenol Supp) 325 mg Q8 PRN [place] FEVER; Start 10/08/16 at 00:30 Metoprolol Tartrate (Lopressor) 50 mg BID NGT Last administered on 10/15/16 09 :14; Admin Dose 50 MG; Start 10/09/16 at 21:00 Hydralazine HCl (Apresoline) 10 mg Q6H PRN IV ELEVATED BLOOD PRESSURE; Start at 13:30 Ferrous Sulfate (Feosol Liquid Cup) 300 mg DAILY NGT Last administered on 09:14; Admin Dose 300 MG; Start 10/10/16 at 09:00 Famotidine (Pepcid) 20 mg DAILY NGT Last administered on 10/15/16 09:14; Admin Dose 20 MG; Start 10/10/16 at 09:00 Amlodipine Besylate (Norvasc) 5 mg DAILY PO Last administered on 10/15/16 09: 14; Admin Dose 5 MG; Start 10/10/16 at 13:30 Clopidogrel Bisulfate (plaVIX) 75 mg DAILY GTB Last administered on 10/15/16 09:14; Admin Dose 75 MG; Start 10/11/16 at 09:00 Clonidine HCl (Catapres-Tts 1 Patch) 1 patch Q7D TRANSDERM Last administered on 10/10/16 21:57; Admin Dose 1 PATCH; Start 10/10/16 at 21:00 Levofloxacin (Levaquin) 500 mg DAILY@06 GTB Last administered on 10/15/16 06: 15; Admin Dose 500 MG; Start 10/12/16 at 10:00 Clindamycin HCl (Cleocin) 300 mg Q8 PO Last administered on 10/15/16 06:15; Admin Dose 300 MG; Start 10/12/16 at 10:00 Potassium Chloride (Potassium Chloride Pwd/Soln) 20 meq BID PO Last administered on 10/15/16 09:15; Admin Dose 20 MEQ; Start 10/12/16 at 10:10 Magnesium Oxide (Mag-Ox 400) 400 mg DAILY GTB Last administered on 10/15/16 09 :13; Admin Dose 400 MG; Start 10/13/16 at 16:00 SANTOS GARCIA MD Oct 15, 2016 10:48
--- NOTE | 2016-10-15 11:20 | CONS ---
Date/Time of Note Date/Time of Note DATE: 10/15/16 TIME: 11:19 Assessment/Plan Assessment/Plan Chief Complaint/Hosp Course Chronic atrial fibrillation: Had rapid rates on admission, now better after IVF and antibiotics. Controlled Aspiration PNA ARF: resolved Recent CVA s/p TPA DM HTN -metoprolol 50mg BID -amlodipine 5mg -started on plavix (would prefer anticoagulation with coumadin or NOAC with pt' s h/o stroke and high risk for recurrence) -antibiotics per primary Problems: Consultation Date/Type/Reason Admit Date/Time Oct 07, 2016 at 22:49 Initial Consult Date 10/08/16 Type of Consultation: Cardiology Referring Provider: YASIR HART MD 24 HR Interval Summary Free Text/Dictation No o/n events. Awaiting SNF placement Exam/Review of Systems Vital Signs Vitals Vital Signs Date Time Temp Pulse Resp B/P Pulse Ox O2 Delivery O2 Flow Rate FiO2 10/15/16 09:14 Nasal Cannula 2.0 10/15/16 08:59 80 20 98 21 10/15/16 07:47 98.1 115/58 Intake and Output 10/14/16 10/14/16 10/15/16 15:00 23:00 07:00 Intake Total 1450 ml 90 ml Output Total 1770 ml 400 ml Balance -320 ml -310 ml Exam Constitutional: alert, No oriented Head: atraumatic, normocephalic Eyes: nl conjunctiva Neck: No jvd Respiratory: clear to auscultation, No crackles/rales Cardiovascular: No edema, No regular rate and rhythm, No systolic murmur Gastrointestinal: non-tender, soft Musculoskeletal: nl extremities to inspection 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: nl mental status, No nl speech Results Result Diagram: 10/13/1672710/13/16727 Results 24 hrs Laboratory Tests Test 10/14/16 12:38 10/14/16 17:08 Bedside Glucose 147 133 Medications Medications Current Medications Acetaminophen (Tylenol Supp) 325 mg Q8 PRN [place] FEVER; Start 10/08/16 at 00:30 Metoprolol Tartrate (Lopressor) 50 mg BID NGT Last administered on 10/15/16t 09 :14; Admin Dose 50 MG; Start 10/09/16 at 21:00 Hydralazine HCl (Apresoline) 10 mg Q6H PRN IV ELEVATED BLOOD PRESSURE; Start at 13:30 Ferrous Sulfate (Feosol Liquid Cup) 300 mg DAILY NGT Last administered on 09:14; Admin Dose 300 MG; Start 10/10/16 at 09:00 Famotidine (Pepcid) 20 mg DAILY NGT Last administered on 10/15/16 09:14; Admin Dose 20 MG; Start 10/10/16 at 09:00 Amlodipine Besylate (Norvasc) 5 mg DAILY PO Last administered on 10/15/16 09: 14; Admin Dose 5 MG; Start 10/10/16 at 13:30 Clopidogrel Bisulfate (plaVIX) 75 mg DAILY GTB Last administered on 10/15/16 09:14; Admin Dose 75 MG; Start 10/11/16 at 09:00 Clonidine HCl (Catapres-Tts 1 Patch) 1 patch Q7D TRANSDERM Last administered on 10/10/16 21:57; Admin Dose 1 PATCH; Start 10/10/16 at 21:00 Levofloxacin (Levaquin) 500 mg DAILY@06 GTB Last administered on 10/15/16 06: 15; Admin Dose 500 MG; Start 10/12/16 at 10:00 Clindamycin HCl (Cleocin) 300 mg Q8 PO Last administered on 10/15/16 06:15; Admin Dose 300 MG; Start 10/12/16 at 10:00 Potassium Chloride (Potassium Chloride Pwd/Soln) 20 meq BID PO Last administered on 10/15/16 09:15; Admin Dose 20 MEQ; Start 10/12/16 at 10:10 Magnesium Oxide (Mag-Ox 400) 400 mg DAILY GTB Last administered on 10/15/16 09 :13; Admin Dose 400 MG; Start 10/13/16 at 16:00 ADAN BLAIR Oct 15, 2016 11:20
[2016-10-15 11:45] VITALS: BP 113/54; RESP 16
[2016-10-15 15:29] VITALS: BP 138/62; RESP 16
--- NOTE | 2016-10-15 18:09 | CONS ---
Date/Time of Note Date/Time of Note DATE: 10/15/16 TIME: 18:09 Assessment/Plan Assessment/Plan Chief Complaint/Hosp Course 89 F with PMhx of HTN, Type II DM, h/o atrial fibrillation, H/o CVA with left hemiplegia 2weeks ago, s/p TPA, was admitted to [facility], severe PAD with Caroid atherosclerosis, Dysphagia failed swallow evalatio, admitted for sepsis, Aspiration PNA and lactic acidosis. Renal has been consulted for VERO on CKD< hyperkalemia Problems: Additional Assessment/Plan 1. acute kidney injury on CKD, renal us showed -Atrophic right kidney. 2. sepsis, possibley due to Aspiration PNA s/p G tube placement now 3. HTN 4. Type II DM 5. H/o recent CVA s/p tPA at [facility] 6. atrial fibrillation with intermittently elevated HR 7. Hypernatremia- change IVF- D51/2 NS at 60 cc/hr 8. Hypokalemia- BMP to fu 9. Anemia- Monitor cbc,transfuse PRN Plan: continue PO magnesium and PO KCL Urine studies, and Uric acid unremarkable BP stable renal us showed -Atrophic right kidney. will continue to follow up on patient SNF placment in process Consultation Date/Type/Reason Admit Date/Time Oct 07, 2016 at 22:49 Initial Consult Date 10/08/16 Type of Consultation: NEPHROLOGY Referring Provider: YASIR HART MD 24 HR Interval Summary Free Text/Dictation awaiting SNF placement Exam/Review of Systems Vital Signs Vitals Vital Signs Date Time Temp Pulse Resp B/P Pulse Ox O2 Delivery O2 Flow Rate FiO2 10/15/16 16:04 84 22 95 21 10/15/16 15:29 97.0 138/62 10/15/16 09:14 Nasal Cannula 2.0 Intake and Output 10/14/16 10/14/16 10/15/16 15:00 23:00 07:00 Intake Total 1450 ml 90 ml Output Total 1770 ml 400 ml Balance -320 ml -310 ml Results Result Diagram: 10/13/16 0728 10/13/16 0728 Medications Medications Current Medications Acetaminophen (Tylenol Supp) 325 mg Q8 PRN [place] FEVER; Start 10/08/16 at 00:30 Metoprolol Tartrate (Lopressor) 50 mg BID NGT Last administered on 10/15/16 09 :14; Admin Dose 50 MG; Start 10/09/16 at 21:00 Hydralazine HCl (Apresoline) 10 mg Q6H PRN IV ELEVATED BLOOD PRESSURE; Start at 13:30 Ferrous Sulfate (Feosol Liquid Cup) 300 mg DAILY NGT Last administered on 09:14; Admin Dose 300 MG; Start 10/10/16 at 09:00 Famotidine (Pepcid) 20 mg DAILY NGT Last administered on 10/15/16 09:14; Admin Dose 20 MG; Start 10/10/16 at 09:00 Amlodipine Besylate (Norvasc) 5 mg DAILY PO Last administered on 10/15/16 09: 14; Admin Dose 5 MG; Start 10/10/16 at 13:30 Clopidogrel Bisulfate (plaVIX) 75 mg DAILY GTB Last administered on 10/15/16 09:14; Admin Dose 75 MG; Start 10/11/16 at 09:00 Clonidine HCl (Catapres-Tts 1 Patch) 1 patch Q7D TRANSDERM Last administered on 10/10/16 21:57; Admin Dose 1 PATCH; Start 10/10/16 at 21:00 Levofloxacin (Levaquin) 500 mg DAILY@06 GTB Last administered on 10/15/16 06: 15; Admin Dose 500 MG; Start 10/12/16 at 10:00 Clindamycin HCl (Cleocin) 300 mg Q8 PO Last administered on 10/15/16 14:13; Admin Dose 300 MG; Start 10/12/16 at 10:00 Potassium Chloride (Potassium Chloride Pwd/Soln) 20 meq BID PO Last administered on 10/15/16 09:15; Admin Dose 20 MEQ; Start 10/12/16 at 10:10 Magnesium Oxide (Mag-Ox 400) 400 mg DAILY GTB Last administered on 10/15/16 09 :13; Admin Dose 400 MG; Start 10/13/16 at 16:00 MAINOR HUTCHISON MD Oct 15, 2016 18:09
--- NOTE | 2016-10-15 20:09 | CONS ---
Date/Time of Note Date/Time of Note DATE: 10/15/16 TIME: 20:09 Assessment/Plan Assessment/Plan Chief Complaint/Hosp Course ANEMIA N- CYTIC WITH N RDW WITH DROP H/H DURING HOSPITALIZATION MONITOR BLOOD COUNT CLOSELY OBSERVE FOR BLEEDING AND HEMOLYSIS + COMPONENT ACD CHECK BLOOD COUNT IN AM acute kidney injury on CKD sepsis, dysphagia, aspiration PNA HTN Type II DM H/o recent CVA s/p tPA at [facility] atrial fibrillation with intermittently elevated HR Problems: Consultation Date/Type/Reason Admit Date/Time Oct 07, 2016 at 22:49 Initial Consult Date 10/08/16 Type of Consultation: hemeonc Referring Provider: YASIR HART MD 24 HR Interval Summary Free Text/Dictation ALL NOTED NAD NO BLEEDING Exam/Review of Systems Vital Signs Vitals Vital Signs Date Time Temp Pulse Resp B/P Pulse Ox O2 Delivery O2 Flow Rate FiO2 10/15/16 16:04 84 22 95 21 10/15/16 15:29 97.0 138/62 10/15/16 09:14 Nasal Cannula 2.0 Intake and Output 10/14/16 10/14/16 10/15/16 15:00 23:00 07:00 Intake Total 1450 ml 90 ml Output Total 1770 ml 400 ml Balance -320 ml -310 ml Exam Constitutional: non-verbal Psych: no complaints Head: normocephalic Eyes: nl conjunctiva Respiratory: congested cough, crackles/rales, diminished breath sounds Cardiovascular: irregular rhythm, regular rate and rhythm Gastrointestinal: non-tender, soft Musculoskeletal: joint tenderness, muscle weakness, range of motion, swelling 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: lethargic, unresponsive Skin: nl turgor Lymph: nl lymph nodes Results Result Diagram: 10/13/1628 10/13/16727 Medications Medications Current Medications Acetaminophen (Tylenol Supp) 325 mg Q8 PRN [place] FEVER; Start 10/08/16 at 00:30 Metoprolol Tartrate (Lopressor) 50 mg BID NGT Last administered on 10/15/16 09 :14; Admin Dose 50 MG; Start 10/09/16 at 21:00 Hydralazine HCl (Apresoline) 10 mg Q6H PRN IV ELEVATED BLOOD PRESSURE; Start at 13:30 Ferrous Sulfate (Feosol Liquid Cup) 300 mg DAILY NGT Last administered on 09:14; Admin Dose 300 MG; Start 10/10/16 at 09:00 Famotidine (Pepcid) 20 mg DAILY NGT Last administered on 10/15/16 09:14; Admin Dose 20 MG; Start 10/10/16 at 09:00 Amlodipine Besylate (Norvasc) 5 mg DAILY PO Last administered on 10/15/16 09: 14; Admin Dose 5 MG; Start 10/10/16 at 13:30 Clopidogrel Bisulfate (plaVIX) 75 mg DAILY GTB Last administered on 10/15/16 09:14; Admin Dose 75 MG; Start 10/11/16 at 09:00 Clonidine HCl (Catapres-Tts 1 Patch) 1 patch Q7D TRANSDERM Last administered on 10/10/16 21:57; Admin Dose 1 PATCH; Start 10/10/16 at 21:00 Levofloxacin (Levaquin) 500 mg DAILY@06 GTB Last administered on 10/15/16 06: 15; Admin Dose 500 MG; Start 10/12/16 at 10:00 Clindamycin HCl (Cleocin) 300 mg Q8 PO Last administered on 10/15/16 14:13; Admin Dose 300 MG; Start 10/12/16 at 10:00 Potassium Chloride (Potassium Chloride Pwd/Soln) 20 meq BID PO Last administered on 10/15/16 09:15; Admin Dose 20 MEQ; Start 10/12/16 at 10:10 Magnesium Oxide (Mag-Ox 400) 400 mg DAILY GTB Last administered on 10/15/16 09 :13; Admin Dose 400 MG; Start 10/13/16 at 16:00 TORRI HARLEY MD Oct 15, 2016 20:09
[2016-10-16] MEDS: ALBUTEROL 0.083% (NEB) 2.5 MG/3 ML AMP HHN SCH ×3 (00:12→16:21)
[2016-10-16] MEDS: IPRATROPIUM (NEB) 0.5 MG/2.5 ML AMP HHN SCH ×3 (00:12→16:21)
[2016-10-16 02:00] VITALS: BP 117/86; PULSE 78; RESP 19
[2016-10-16] MEDS: CLINDAMYCIN 300 MG CAP PO SCH (06:51)
[2016-10-16] MEDS: LEVOFLOXACIN 500 MG TAB GTB SCH (06:51)
[2016-10-16 07:51] VITALS: BP 119/58; RESP 17
--- NOTE | 2016-10-16 08:56 | PN ---
Date/Time of Note Date/Time of Note DATE: 10/16/16 TIME: 08:51 Assessment/Plan VTE Prophylaxis VTE Prophylaxis Intervention: ambulation, anti-embolic stocking, LMWH VTE Contraindication Reason: peripheral vascular disease Lines/Catheters IV Catheter Type (from Nrsg): [place] Central line still needed: No Urinary Cath still in place: Yes Reason Cath still needed: urinary retention Assessment/Plan Chief Complaint/Hosp Course Chronic atrial fibrillation: Had rapid rates on admission, now better after IVF and antibiotics. Controlled Aspiration PNA ARF: resolved Recent CVA s/p TPA DM HTN -metoprolol 50mg BID -amlodipine 5mg -started on plavix (would prefer anticoagulation with coumadin or NOAC with pt' s h/o stroke and high risk for recurrence) -antibiotics per primary Problems: Assessment/Plan 1.CVA with left hemiplegia 3 weeks ago, s/p TPA 09/28; was in ICU of [facility] with involuntary movements of the left upper extremity. 2.S/P G tube placement-feeding continue at 40cc/hr. 3.Lactic acidosis- improved 4.ATN with improvement 5.Sepsis-aspiration pneumonia and /or URI/uti-improving 6.Severe PAD with carotid bruits bilaterally 7.DM type 2 new onset 8.Dysphagia, dysarthria, s/p failed one swallowing evaluation , now vith goot verbalisationa nd positive gag reflex. 9.Lethargic- more alert. 10.Iron deficiency- continue supplementation. 11.Anemia of chronic disease- drop of hct to 25- continue iron supplementation 12.Atrial fibrillation with controlled ventricular rate- unknown time duration 13.PTSD after acute stress months ago 14.S/P midline laparotomy with cholecystectomy 15.Hematuria- cleared ad oculus and uti improving 16.Urinary incontinence- with Arevalo drains clear urine. 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 22.Low magnesium, vit "D" and iron levels Cont'd Hospitalization Reason: rehab. Subjective 24 Hr Interval Summary Free Text/Dictation Dryness of the mouth. Subjective hx not possible: pt critical status Constitutional: poor po, No chills, No diaphoresis, No disoriented, No febrile, No improved, No no complaints, No other, No requiring IVF, No requiring O2 Eyes: discharge, No no complaints, No other, No pain, No redness, No visual change ENT: congestion, dysphagia, pain, No bleeding, No discharge, No no complaints, No other, No sore throat Respiratory: cough, No no complaints, No other, No pain, No pleuritic pain, No shortness of breath, No sputum, No wheezing Cardiovascular: lightheadedness, No chest pain, No edema, No no complaints, No orthopenea, No other, No palpitations, No paroxysmal nocturnal dyspnea Gastrointestinal: decreased appetite, flatus, passing stool, No blood, No constipation, No diarrhea, No nausea, No no complaints, No other , No pain, No vomiting Genitourinary: flank pain, No bleeding, No discharge, No dysuria, No hematuria, No no complaints, No other Musculoskeletal: back pain, bone/joint pain, neck pain, No no complaints, No other, No restricted range of motion, No swelling Skin: bruising, erythema Neurologic: focal-weakness, No confusion, No dizziness, No headache, No no complaints, No other, No seizure, No syncope Psychological: anxiety Exam/Review of Systems Vital Signs Vitals Vital Signs Date Time Temp Pulse Resp B/P Pulse Ox O2 Delivery O2 Flow Rate FiO2 10/16/16 07:51 97.4 78 17 119/58 96 10/16/16 02:00 Nasal Cannula 10/16/16 00:22 21 10/15/16 09:14 2.0 Intake and Output 10/15/16 10/15/16 10/16/16 15:00 23:00 07:00 Intake Total 597 ml 120 ml Output Total 1100 ml 400 ml Balance -503 ml -280 ml Exam Constitutional: alert, frail, oriented, No distress, No non-verbal, No obese, No other, No well developed Psych: anxiety, depression, No confusion, No nl mood/affect, No no complaints, No other, No suicidal Head: atraumatic, normocephalic, No hematomas, No lacerations, No other Eyes: EOMI, PERRL, nl lids, No fundi, disc, No icteric, No nl conjunctiva, No nl sclera, No other ENMT: nl external ears & nose, nl nasal mucosa & septum, tympanic membranes, No intubated, No mucosa pink and moist, No nl lips & teeth, No other Neck: bruits, jvd, nuchal rigidity, No masses, No non-tender, No other, No supple, No thyromegaly Respiratory: clear to auscultation, diminished breath sounds, intercostal retraction, normal air movement, No congested cough, No crackles/rales, No labored breathing, No other, No respirations, No tactile fremitus, No wheezing Cardiovascular: bruits, regular rate and rhythm, systolic murmur, No S3, No S4, No diastolic murmur, No edema, No gallop, No irregular rhythm, No jugular venous distention (JVD), No murmurs/extra sounds, No nl pulses, No other, No rub Gastrointestinal: bowel sounds, soft, surgical scars Genitourinary - Female: CVA tenderness, nl external genitalia Musculoskeletal: joint tenderness, muscle tone, muscle weakness 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: 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, focal weakness (left hemiplegia.), numbness, No DTR's symmetric, No confused, No lethargic, No nl mental status, No nl speech, No nl strength, No other, No reflexes, No unresponsive Skin: diaphoresis, No ecchymosis, No laceration, No nl turgor, No other, No puncture, No rash or lesions Lymph: No enlarged, No nl lymph nodes, No nontender, No other Results Result Diagram: 10/13/1628 10/13/16 0728 Medications Medications Current Medications Acetaminophen (Tylenol Supp) 325 mg Q8 PRN [place] FEVER; Start 10/08/16 at 00:30 Metoprolol Tartrate (Lopressor) 50 mg BID NGT Last administered on 10/15/16 21 :15; Admin Dose 50 MG; Start 10/09/16 at 21:00 Hydralazine HCl (Apresoline) 10 mg Q6H PRN IV ELEVATED BLOOD PRESSURE; Start at 13:30 Ferrous Sulfate (Feosol Liquid Cup) 300 mg DAILY NGT Last administered on 09:14; Admin Dose 300 MG; Start 10/10/16 at 09:00 Famotidine (Pepcid) 20 mg DAILY NGT Last administered on 10/15/16 09:14; Admin Dose 20 MG; Start 10/10/16 at 09:00 Amlodipine Besylate (Norvasc) 5 mg DAILY PO Last administered on 10/15/16 09: 14; Admin Dose 5 MG; Start 10/10/16 at 13:30 Clopidogrel Bisulfate (plaVIX) 75 mg DAILY GTB Last administered on 10/15/16 09:14; Admin Dose 75 MG; Start 10/11/16 at 09:00 Clonidine HCl (Catapres-Tts 1 Patch) 1 patch Q7D TRANSDERM Last administered on 10/10/16 21:57; Admin Dose 1 PATCH; Start 10/10/16 at 21:00 Levofloxacin (Levaquin) 500 mg DAILY@06 GTB Last administered on 10/16/16 06: 51; Admin Dose 500 MG; Start 10/12/16 at 10:00 Clindamycin HCl (Cleocin) 300 mg Q8 PO Last administered on 10/16/16 06:51; Admin Dose 300 MG; Start 10/12/16 at 10:00 Potassium Chloride (Potassium Chloride Pwd/Soln) 20 meq BID PO Last administered on 10/15/16 21:15; Admin Dose 20 MEQ; Start 10/12/16 at 10:10 Magnesium Oxide (Mag-Ox 400) 400 mg DAILY GTB Last administered on 10/15/16 09 :13; Admin Dose 400 MG; Start 10/13/16 at 16:00 YASIR HART MD Oct 16, 2016 08:56
[2016-10-16] MEDS: POTASSIUM CHLORIDE 20 MEQ POWDER FOR ORAL SOLN PO SCH (09:54)
[2016-10-16] MEDS: MAGNESIUM OXIDE 400 MG TAB GTB SCH (09:54)
[2016-10-16] MEDS: CLOPIDOGREL 75 MG TAB GTB SCH (09:54)
[2016-10-16] MEDS: FAMOTIDINE 20 MG TAB NGT SCH (09:54)
[2016-10-16] MEDS: FERROUS SULFATE 60 MG/ML 5ML CUP NGT SCH (09:54)
[2016-10-16] MEDS: METOPROLOL 50 MG TAB NGT SCH ×2 (09:55→20:38)
[2016-10-16] MEDS: AMLODIPINE 5 MG TAB PO SCH (09:56)
[2016-10-16] MEDS ORDERED: HYDROCORTISONE 100 MG INJ IV ONE (10:00)
--- NOTE | 2016-10-16 11:17 | CONS ---
Date/Time of Note Date/Time of Note DATE: 10/16/16 TIME: 11:16 Assessment/Plan Assessment/Plan Chief Complaint/Hosp Course Chronic atrial fibrillation: Had rapid rates on admission, now better after IVF and antibiotics. Controlled Aspiration PNA ARF: resolved Recent CVA s/p TPA DM HTN -metoprolol 50mg BID -amlodipine 5mg -on plavix (would prefer anticoagulation with coumadin or NOAC with pt's h/o stroke and high risk for recurrence, can be addressed as outpt) Problems: Consultation Date/Type/Reason Admit Date/Time Oct 07, 2016 at 22:49 Initial Consult Date 10/08/16 Type of Consultation: Cardiology Referring Provider: YASIR HART MD 24 HR Interval Summary Free Text/Dictation Awaiting placement. No o/n events Exam/Review of Systems Vital Signs Vitals Vital Signs Date Time Temp Pulse Resp B/P Pulse Ox O2 Delivery O2 Flow Rate FiO2 10/16/16 09:50 68 17 96 Nasal Cannula 21 10/16/16 07:51 97.4 119/58 10/15/16 09:14 2.0 Intake and Output 10/15/16 10/15/16 10/16/16 15:00 23:00 07:00 Intake Total 597 ml 120 ml Output Total 1100 ml 400 ml Balance -503 ml -280 ml Exam Constitutional: alert Psych: no complaints Head: atraumatic, normocephalic Neck: No jvd Respiratory: clear to auscultation, No crackles/rales Cardiovascular: No edema, No regular rate and rhythm, No systolic murmur Gastrointestinal: non-tender, soft Musculoskeletal: nl extremities to inspection 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: No nl speech Results Result Diagram: 10/13/1672710/13/16727 Medications Medications Current Medications Acetaminophen (Tylenol Supp) 325 mg Q8 PRN [place] FEVER; Start 10/08/16 at 00:30 Metoprolol Tartrate (Lopressor) 50 mg BID NGT Last administered on 10/16/16 09 :55; Admin Dose 50 MG; Start 10/09/16 at 21:00 Hydralazine HCl (Apresoline) 10 mg Q6H PRN IV ELEVATED BLOOD PRESSURE; Start at 13:30 Ferrous Sulfate (Feosol Liquid Cup) 300 mg DAILY NGT Last administered on 09:54; Admin Dose 300 MG; Start 10/10/16 at 09:00 Famotidine (Pepcid) 20 mg DAILY NGT Last administered on 10/16/16 09:54; Admin Dose 20 MG; Start 10/10/16 at 09:00 Amlodipine Besylate (Norvasc) 5 mg DAILY PO Last administered on 10/16/16 09: 56; Admin Dose 5 MG; Start 10/10/16 at 13:30 Clopidogrel Bisulfate (plaVIX) 75 mg DAILY GTB Last administered on 10/16/16 09:54; Admin Dose 75 MG; Start 10/11/16 at 09:00 Clonidine HCl (Catapres-Tts 1 Patch) 1 patch Q7D TRANSDERM Last administered on 10/10/16 21:57; Admin Dose 1 PATCH; Start 10/10/16 at 21:00 Levofloxacin (Levaquin) 500 mg DAILY@06 GTB Last administered on 10/16/16 06: 51; Admin Dose 500 MG; Start 10/12/16 at 10:00 Clindamycin HCl (Cleocin) 300 mg Q8 PO Last administered on 10/16/16 06:51; Admin Dose 300 MG; Start 10/12/16 at 10:00 Potassium Chloride (Potassium Chloride Pwd/Soln) 20 meq BID PO Last administered on 10/16/16 09:54; Admin Dose 20 MEQ; Start 10/12/16 at 10:10 Magnesium Oxide (Mag-Ox 400) 400 mg DAILY GTB Last administered on 10/16/16 09 :54; Admin Dose 400 MG; Start 10/13/16 at 16:00 ADAN BLAIR Oct 16, 2016 11:17
--- NOTE | 2016-10-16 12:45 | CONS ---
Date/Time of Note Date/Time of Note DATE: 10/16/16 TIME: 12:44 Assessment/Plan Assessment/Plan Chief Complaint/Hosp Course ANEMIA N- CYTIC WITH N RDW WITH DROP H/H DURING HOSPITALIZATION MONITOR BLOOD COUNT CLOSELY OBSERVE FOR BLEEDING AND HEMOLYSIS + COMPONENT ACD CHECK BLOOD COUNT IN AM acute kidney injury on CKD sepsis, dysphagia, aspiration PNA HTN Type II DM H/o recent CVA s/p tPA at [facility] atrial fibrillation with intermittently elevated HR Problems: Consultation Date/Type/Reason Admit Date/Time Oct 07, 2016 at 22:49 Initial Consult Date 10/08/16 Type of Consultation: HEMEONC Referring Provider: YASIR HART MD 24 HR Interval Summary Free Text/Dictation ALL NOTED NAD Exam/Review of Systems Vital Signs Vitals Vital Signs Date Time Temp Pulse Resp B/P Pulse Ox O2 Delivery O2 Flow Rate FiO2 10/16/16 09:50 68 17 96 Nasal Cannula 21 10/16/16 07:51 97.4 119/58 10/15/16 09:14 2.0 Intake and Output 10/15/16 10/15/16 10/16/16 15:00 23:00 07:00 Intake Total 597 ml 120 ml Output Total 1100 ml 400 ml Balance -503 ml -280 ml Exam Constitutional: non-verbal Psych: no complaints Head: normocephalic Eyes: nl conjunctiva Respiratory: congested cough, crackles/rales, diminished breath sounds Cardiovascular: irregular rhythm, regular rate and rhythm Gastrointestinal: non-tender, soft Musculoskeletal: joint tenderness, muscle weakness, range of motion, swelling 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: lethargic, unresponsive Skin: nl turgor Lymph: nl lymph nodes Results Result Diagram: 10/13/16 0728 10/13/16 0728 Medications Medications Current Medications Acetaminophen (Tylenol Supp) 325 mg Q8 PRN [place] FEVER; Start 10/08/16 at 00:30 Metoprolol Tartrate (Lopressor) 50 mg BID NGT Last administered on 10/16/16 09 :55; Admin Dose 50 MG; Start 10/09/16 at 21:00 Hydralazine HCl (Apresoline) 10 mg Q6H PRN IV ELEVATED BLOOD PRESSURE; Start at 13:30 Ferrous Sulfate (Feosol Liquid Cup) 300 mg DAILY NGT Last administered on 09:54; Admin Dose 300 MG; Start 10/10/16 at 09:00 Famotidine (Pepcid) 20 mg DAILY NGT Last administered on 10/16/16 09:54; Admin Dose 20 MG; Start 10/10/16 at 09:00 Amlodipine Besylate (Norvasc) 5 mg DAILY PO Last administered on 10/16/16 09: 56; Admin Dose 5 MG; Start 10/10/16 at 13:30 Clopidogrel Bisulfate (plaVIX) 75 mg DAILY GTB Last administered on 10/16/16 09:54; Admin Dose 75 MG; Start 10/11/16 at 09:00 Clonidine HCl (Catapres-Tts 1 Patch) 1 patch Q7D TRANSDERM Last administered on 10/10/16 21:57; Admin Dose 1 PATCH; Start 10/10/16 at 21:00 Levofloxacin (Levaquin) 500 mg DAILY@06 GTB Last administered on 10/16/16 06: 51; Admin Dose 500 MG; Start 10/12/16 at 10:00 Clindamycin HCl (Cleocin) 300 mg Q8 PO Last administered on 10/16/16 06:51; Admin Dose 300 MG; Start 10/12/16 at 10:00 Potassium Chloride (Potassium Chloride Pwd/Soln) 20 meq BID PO Last administered on 10/16/16 09:54; Admin Dose 20 MEQ; Start 10/12/16 at 10:10 Magnesium Oxide (Mag-Ox 400) 400 mg DAILY GTB Last administered on 10/16/16 09 :54; Admin Dose 400 MG; Start 10/13/16 at 16:00 TORRI HARLEY MD Oct 16, 2016 12:45
[2016-10-16] MEDS ORDERED: BARIUM SULFATE 135 ML (E-Z HD) PO ONE (12:49)
--- NOTE | 2016-10-16 12:54 | CONS ---
Date/Time of Note Date/Time of Note DATE: 10/16/16 TIME: 12:53 Assessment/Plan Assessment/Plan Chief Complaint/Hosp Course 89 F with PMhx of HTN, Type II DM, h/o atrial fibrillation, H/o CVA with left hemiplegia 2weeks ago, s/p TPA, was admitted to [facility], severe PAD with Caroid atherosclerosis, Dysphagia failed swallow evalatio, admitted for sepsis, Aspiration PNA and lactic acidosis. Renal has been consulted for VERO on CKD< hyperkalemia Problems: Additional Assessment/Plan 1. acute kidney injury on CKD, renal us showed -Atrophic right kidney. 2. sepsis, possibley due to Aspiration PNA s/p G tube placement now 3. HTN 4. Type II DM 5. H/o recent CVA s/p tPA at [facility] 6. atrial fibrillation with intermittently elevated HR 7. Hypernatremia- change IVF- D51/2 NS at 60 cc/hr 8. Hypokalemia- BMP to fu 9. Anemia- Monitor cbc,transfuse PRN Plan: continue PO magnesium and PO KCL Urine studies, and Uric acid unremarkable BP stable renal us showed -Atrophic right kidney. will continue to follow up on patient SNF placment in process Consultation Date/Type/Reason Admit Date/Time Oct 07, 2016 at 22:49 Initial Consult Date 10/08/16 Type of Consultation: NEPHROLOGY Referring Provider: YASIR HART MD Exam/Review of Systems Vital Signs Vitals Vital Signs Date Time Temp Pulse Resp B/P Pulse Ox O2 Delivery O2 Flow Rate FiO2 10/16/16 09:50 68 17 96 Nasal Cannula 21 10/16/16 07:51 97.4 119/58 10/15/16 09:14 2.0 Intake and Output 10/15/16 10/15/16 10/16/16 15:00 23:00 07:00 Intake Total 597 ml 120 ml Output Total 1100 ml 400 ml Balance -503 ml -280 ml Exam Constitutional: more awake today Respiratory: congested cough, crackles/rales, diminished breath sounds Cardiovascular: irregular rhythm, regular rate and rhythm Gastrointestinal: non-tender, soft, + g tube in place, site clear Musculoskeletal: joint tenderness, muscle weakness, range of motion, swelling 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: not cooperative Results Result Diagram: 10/13/1672710/13/16727 Medications Medications Current Medications Acetaminophen (Tylenol Supp) [address] FEVER; Start 10/08/16 at 00:30 Metoprolol Tartrate (Lopressor) 50 mg BID NGT Last administered on 10/16/16 09 :55; Admin Dose 50 MG; Start 10/09/16 at 21:00 Hydralazine HCl (Apresoline) 10 mg Q6H PRN IV ELEVATED BLOOD PRESSURE; Start at 13:30 Ferrous Sulfate (Feosol Liquid Cup) 300 mg DAILY NGT Last administered on 09:54; Admin Dose 300 MG; Start 10/10/16 at 09:00 Famotidine (Pepcid) 20 mg DAILY NGT Last administered on 10/16/16 09:54; Admin Dose 20 MG; Start 10/10/16 at 09:00 Amlodipine Besylate (Norvasc) 5 mg DAILY PO Last administered on 10/16/16 09: 56; Admin Dose 5 MG; Start 10/10/16 at 13:30 Clopidogrel Bisulfate (plaVIX) 75 mg DAILY GTB Last administered on 10/16/16 09:54; Admin Dose 75 MG; Start 10/11/16 at 09:00 Clonidine HCl (Catapres-Tts 1 Patch) 1 patch Q7D TRANSDERM Last administered on 10/10/16 21:57; Admin Dose 1 PATCH; Start 10/10/16 at 21:00 Levofloxacin (Levaquin) 500 mg DAILY@06 GTB Last administered on 10/16/16 06: 51; Admin Dose 500 MG; Start 10/12/16 at 10:00 Magnesium Oxide (Mag-Ox 400) 400 mg DAILY GTB Last administered on 10/16/16 09 :54; Admin Dose 400 MG; Start 10/13/16 at 16:00 Clindamycin HCl (Cleocin) 300 mg Q8 GTB ; Start 10/16/16 at 12:50 Potassium Chloride (Potassium Chloride Pwd/Soln) 20 meq BID GTB ; Start at 12:51 MAINOR HUTCHISON MD Oct 16, 2016 12:54
[2016-10-16] MEDS: CLINDAMYCIN 300 MG CAP GTB SCH ×2 (14:10→21:59)
[2016-10-16 14:38] VITALS: BP 130/58; RESP 16
--- NOTE | 2016-10-16 15:10 | CONS ---
Date/Time of Note Date/Time of Note DATE: 10/16/16 TIME: 15:09 Assessment/Plan Assessment/Plan Chief Complaint/Hosp Course 89-year-old female with a history of diabetes mellitus, hypertension, atrial fibrillation had a stroke a few days ago for which she was hospitalized at [facility]. Swallow study was done patient failed swallow study so NG tube was passed and was transferred to senior care. Patient was supposed to have a G-tube as outpatient but in the interim she aspirated became septic and was brought to the emergency room and admitted to [facility]. Patient is nonverbal. All the information gathered by reviewing the chart. Problems: Additional Assessment/Plan Additional Assessment/Plan 1. CVA status post TPA at [facility] 2. Left hemiplegia 3. Dysphagia 4. Prerenal azotemia 5. Anemia 6. Diabetes mellitus 7. Hypertension 8. Atrial fibrillation 9. Possible aspiration pneumonia 10. 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 11.s/p PEG Plan increase feeding slowly aspiration precaution continue present care Patient is on Plavix now no evidence of acute bleeding No evidence of aspiration Awaiting for the placement to SNF Consultation Date/Type/Reason Admit Date/Time Oct 07, 2016 at 22:49 Initial Consult Date 10/08/16 Type of Consultation: NEPHROLOGY Referring Provider: YASIR HART MD 24 HR Interval Summary Subjective hx not possible: pt non-verbal Exam/Review of Systems Vital Signs Vitals Vital Signs Date Time Temp Pulse Resp B/P Pulse Ox O2 Delivery O2 Flow Rate FiO2 10/16/16 14:38 98.3 77 16 130/58 94 10/16/16 09:50 Nasal Cannula 21 10/15/16 09:14 2.0 Intake and Output 10/15/16 10/15/16 10/16/16 15:00 23:00 07:00 Intake Total 597 ml 120 ml Output Total 1100 ml 400 ml Balance -503 ml -280 ml Exam Constitutional: alert, oriented, well developed Psych: nl mood/affect, no complaints Head: atraumatic, normocephalic Eyes: EOMI, PERRL, nl conjunctiva, nl lids, nl sclera ENMT: nl external ears & nose, nl lips & teeth, nl nasal mucosa & septum Neck: non-tender, supple Respiratory: clear to auscultation, normal air movement Cardiovascular: nl pulses, regular rate and rhythm Gastrointestinal: nl liver, spleen, non-tender, soft Musculoskeletal: nl extremities to inspection, nl gait and stance Extremities: normal pulses 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, nl mental status, nl speech, nl strength Skin: nl turgor, No rash or lesions Lymph: nl lymph nodes Results Result Diagram: 10/13/1672710/13/16727 Medications Medications Current Medications Acetaminophen (Tylenol Supp) 325 mg Q8 PRN [place] FEVER; Start 10/08/16 at 00:30 Metoprolol Tartrate (Lopressor) 50 mg BID NGT Last administered on 10/16/16 09 :55; Admin Dose 50 MG; Start 10/09/16 at 21:00 Hydralazine HCl (Apresoline) 10 mg Q6H PRN IV ELEVATED BLOOD PRESSURE; Start at 13:30 Ferrous Sulfate (Feosol Liquid Cup) 300 mg DAILY NGT Last administered on 09:54; Admin Dose 300 MG; Start 10/10/16 at 09:00 Famotidine (Pepcid) 20 mg DAILY NGT Last administered on 10/16/16 09:54; Admin Dose 20 MG; Start 10/10/16 at 09:00 Amlodipine Besylate (Norvasc) 5 mg DAILY PO Last administered on 10/16/16 09: 56; Admin Dose 5 MG; Start 10/10/16 at 13:30 Clopidogrel Bisulfate (plaVIX) 75 mg DAILY GTB Last administered on 10/16/16 09:54; Admin Dose 75 MG; Start 10/11/16 at 09:00 Clonidine HCl (Catapres-Tts 1 Patch) 1 patch Q7D TRANSDERM Last administered on 10/10/16 21:57; Admin Dose 1 PATCH; Start 10/10/16 at 21:00 Levofloxacin (Levaquin) 500 mg DAILY@06 GTB Last administered on 10/16/16 06: 51; Admin Dose 500 MG; Start 10/12/16 at 10:00 Magnesium Oxide (Mag-Ox 400) 400 mg DAILY GTB Last administered on 10/16/16 09 :54; Admin Dose 400 MG; Start 10/13/16 at 16:00 Clindamycin HCl (Cleocin) 300 mg Q8 GTB Last administered on 10/16/16 14:10; Admin Dose 300 MG; Start 10/16/16 at 12:50 Potassium Chloride (Potassium Chloride Pwd/Soln) 20 meq BID GTB ; Start at 12:51 SANTOS GARCIA MD Oct 16, 2016 15:10
--- NOTE | 2016-10-16 15:57 | RADRPT ---
PROCEDURE: Video swallowing study CLINICAL INDICATION: Dysphagia TECHNIQUE: Modified barium swallowing study was performed. Fluoroscopy was utilized for the proce dure. Imaging was confined to the oral pharyngeal and cervical phases of the swallowing mechanism. Fluoroscopic guidance was utilized during a modified barium swallowing study with multiple swallows of thin and thick liquids. Total fluoro time: 2.0 minutes # of images/sequence: 23 COMPARISON: None available FINDINGS: No penetration or aspiration with puree. Transient penetration with nectar. Penetration but no asp iration with nectar via straw. Penetration but no aspiration with thin liquids. Aspiration x1 with a trace amount with thin liquids. Degenerative spondylosis of the spine is seen. Pooling of contra st within the vallecula sinuses is noted. No other abnormality is seen. IMPRESSION: 1. Positive trace aspiration. 2. Please refer to swallowing therapist's recommendations for future feedings. RPTAT: PP .Gerson Raya MD, Date Time Electronically viewed and signed by .Gerson Raya MD, on 10/16/2016 15:57 .B/
[2016-10-16 20:00] VITALS: BP 117/68; RESP 20
[2016-10-16] MEDS ORDERED: NA PHOSPHATE/BIPHOS 133 ML ENEMA PR ONE (20:00)
[2016-10-16] MEDS: DOCUSATE SODIUM 10 MG/ML (10ML CUP) GTB SCH (20:37)
[2016-10-16] MEDS: POTASSIUM CHLORIDE 20 MEQ POWDER FOR ORAL SOLN GTB SCH (20:38)
[2016-10-17] MEDS: ALBUTEROL 0.083% (NEB) 2.5 MG/3 ML AMP HHN SCH ×3 (00:10→16:26)
[2016-10-17] MEDS: IPRATROPIUM (NEB) 0.5 MG/2.5 ML AMP HHN SCH ×3 (00:10→16:26)
[2016-10-17 02:00] VITALS: BP 108/58; RESP 20
[2016-10-17] MEDS: CLINDAMYCIN 300 MG CAP GTB SCH ×3 (05:38→21:23)
[2016-10-17] MEDS: LEVOFLOXACIN 500 MG TAB GTB SCH (05:38)
[2016-10-17 06:21] LABS: BASOPHIL # 0.1 10^3/ul (0.0-0.1); BASOPHILS % 0.5 % (0.0-2.0); EOSINOPHILS # 0.1 10^3/ul (0.0-0.5); EOSINOPHILS % 1.2 % (0.0-7.0); HEMATOCRIT 29.9 % (37.0-47.0); HEMOGLOBIN 9.7 g/dl (12.0-16.0); MEAN CORPUSCULAR HEMOGLOBIN 29.2 pg (29.0-33.0); MEAN CORPUSCULAR HGB CONC 32.4 g/dl (32.0-37.0); MEAN CORPUSCULAR VOLUME 90.1 fl (82.0-101.0); MONOCYTE # 0.6 10^3/ul (0.3-0.9); MONOCYTES % 6.1 % (0.0-11.0); PLATELET COUNT 298 10^3/UL (140-415); RED BLOOD COUNT 3.32 10^6/ul (4.20-5.40); RED CELL DISTRIBUTION WIDTH 13.2 % (11.5-14.5); WHITE BLOOD COUNT 10.4 10^3/ul (4.8-10.8)
[2016-10-17 06:54] LABS: ALBUMIN 3.1 g/dl (3.3-4.9); BILIRUBIN,INDIRECT 0.2 mg/dl (0-1.1); BILIRUBIN,TOTAL 0.2 mg/dl (0.2-1.3); CALCIUM 9.1 mg/dl (8.4-10.2); CREATININE 1.01 mg/dl (0.44-1.00); IRON 71 ug/dl (35-150); POTASSIUM 4.4 mmol/L (3.5-5.1); TOTAL PROTEIN 6.2 g/dl (6.1-8.1)
[2016-10-17 07:03] LABS: TOTAL IRON BINDING CAPACITY 279 ug/dl (241-421)
[2016-10-17 07:55] VITALS: BP 110/59; RESP 23
[2016-10-17] MEDS: POTASSIUM CHLORIDE 20 MEQ POWDER FOR ORAL SOLN GTB SCH ×2 (09:36→21:22)
[2016-10-17] MEDS: DOCUSATE SODIUM 10 MG/ML (10ML CUP) GTB SCH ×2 (09:36→21:22)
[2016-10-17] MEDS: FERROUS SULFATE 60 MG/ML 5ML CUP NGT SCH (09:36)
[2016-10-17] MEDS: AMLODIPINE 5 MG TAB PO SCH (09:37)
[2016-10-17] MEDS: CLOPIDOGREL 75 MG TAB GTB SCH (09:38)
[2016-10-17] MEDS: MAGNESIUM OXIDE 400 MG TAB GTB SCH (09:38)
[2016-10-17] MEDS: METOPROLOL 50 MG TAB NGT SCH ×2 (09:38→21:23)
[2016-10-17] MEDS: FAMOTIDINE 20 MG TAB NGT SCH (09:38)
--- NOTE | 2016-10-17 11:08 | CONS ---
Date/Time of Note Date/Time of Note DATE: 10/17/16 TIME: 11:07 Assessment/Plan Assessment/Plan Chief Complaint/Hosp Course Chronic atrial fibrillation: Had rapid rates on admission, now better after IVF and antibiotics. Controlled Aspiration PNA ARF: resolved Recent CVA s/p TPA DM HTN -metoprolol 50mg BID -amlodipine 5mg -on plavix (would prefer anticoagulation with coumadin or NOAC with pt's h/o stroke and high risk for recurrence, can be addressed as outpt) Problems: Consultation Date/Type/Reason Admit Date/Time Oct 07, 2016 at 22:49 Initial Consult Date 10/08/16 Type of Consultation: Cardiology Referring Provider: YASIR HART MD 24 HR Interval Summary Free Text/Dictation No o/n events,. HR controlled Exam/Review of Systems Vital Signs Vitals Vital Signs Date Time Temp Pulse Resp B/P Pulse Ox O2 Delivery O2 Flow Rate FiO2 10/17/16 07:55 97.6 85 23 110/59 98 10/17/16 07:28 21 10/16/16 19:55 Nasal Cannula 2.0 Intake and Output 10/16/16 10/16/16 10/17/16 15:00 23:00 07:00 Intake Total 800 ml 900 ml Output Total 550 ml 800 ml Balance 250 ml 100 ml Exam Constitutional: alert Head: atraumatic, normocephalic Neck: No jvd Respiratory: clear to auscultation, No crackles/rales Cardiovascular: No edema, No regular rate and rhythm, No systolic murmur Gastrointestinal: non-tender, soft 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: nl mental status, No nl speech Skin: No rash or lesions Results Result Diagram: 10/17/16 0510 10/17/16 0510 Results 24 hrs Laboratory Tests Test 10/17/16 05:10 White Blood Count 10.4 Red Blood Count 3.32 L Hemoglobin 9.7 L Hematocrit 29.9 L Mean Corpuscular Volume 90.1 Mean Corpuscular Hemoglobin 29.2 Mean Corpuscular Hemoglobin Concent 32.4 Red Cell Distribution Width 13.2 Platelet Count 298 Mean Platelet Volume 10.0 Neutrophils % 69.0 Lymphocytes % 19.0 Monocytes % 6.1 Eosinophils % 1.2 Basophils % 0.5 Nucleated Red Blood Cells % 0.0 Neutrophils # (Manual) 7.2 Lymphocytes # 2.0 Monocytes # 0.6 Eosinophils # 0.1 Basophils # 0.1 Nucleated Red Blood Cells # 0.0 Sodium Level 139 Potassium Level 4.4 Chloride Level 98 Carbon Dioxide Level 28 Anion Gap 17 H Blood Urea Nitrogen 40 H Creatinine 1.01 H Glucose Level 130 Calcium Level 9.1 Iron Level 71 Total Iron Binding Capacity 279 Percent Iron Saturation 25 Total Bilirubin 0.2 Direct Bilirubin 0.00 Indirect Bilirubin 0.2 Aspartate Amino Transf (AST/SGOT) 29 Alanine Aminotransferase (ALT/SGPT) 33 Alkaline Phosphatase 101 Total Protein 6.2 Albumin 3.1 L Globulin 3.10 Albumin/Globulin Ratio 1.00 Medications Medications Current Medications Acetaminophen (Tylenol Supp) 325 mg Q8 PRN [place] FEVER; Start 10/08/16 at 00:30 Metoprolol Tartrate (Lopressor) 50 mg BID NGT Last administered on 10/17/16 09 :38; Admin Dose 50 MG; Start 10/09/16 at 21:00 Hydralazine HCl (Apresoline) 10 mg Q6H PRN IV ELEVATED BLOOD PRESSURE; Start at 13:30 Ferrous Sulfate (Feosol Liquid Cup) 300 mg DAILY NGT Last administered on 09:36; Admin Dose 300 MG; Start 10/10/16 at 09:00 Famotidine (Pepcid) 20 mg DAILY NGT Last administered on 10/17/16 09:38; Admin Dose 20 MG; Start 10/10/16 at 09:00 Amlodipine Besylate (Norvasc) 5 mg DAILY PO Last administered on 10/17/16 09: 37; Admin Dose 5 MG; Start 10/10/16 at 13:30 Clopidogrel Bisulfate (plaVIX) 75 mg DAILY GTB Last administered on 10/17/16 09:38; Admin Dose 75 MG; Start 10/11/16 at 09:00 Clonidine HCl (Catapres-Tts 1 Patch) 1 patch Q7D TRANSDERM Last administered on 10/10/16 21:57; Admin Dose 1 PATCH; Start 10/10/16 at 21:00 Levofloxacin (Levaquin) 500 mg DAILY@06 GTB Last administered on 10/17/16 05: 38; Admin Dose 500 MG; Start 10/12/16 at 10:00 Magnesium Oxide (Mag-Ox 400) 400 mg DAILY GTB Last administered on 10/17/16 09 :38; Admin Dose 400 MG; Start 10/13/16 at 16:00 Clindamycin HCl (Cleocin) 300 mg Q8 GTB Last administered on 10/17/16 05:38; Admin Dose 300 MG; Start 10/16/16 at 12:50 Potassium Chloride (Potassium Chloride Pwd/Soln) 20 meq BID GTB Last administered on 10/17/16 09:36; Admin Dose 20 MEQ; Start 10/16/16 at 12:51 Docusate Sodium (Colace Liquid Cup) 250 mg BID GTB Last administered on 09:36; Admin Dose 250 MG; Start 10/16/16 at 21:00 ADAN BLAIR Oct 17, 2016 11:08
--- NOTE | 2016-10-17 12:53 | CONS ---
Date/Time of Note Date/Time of Note DATE: 10/17/16 TIME: 12:52 Assessment/Plan Assessment/Plan Additional Assessment/Plan 1. acute kidney injury on CKD, renal us showed -Atrophic right kidney. 2. sepsis, possibley due to Aspiration PNA s/p G tube placement now 3. HTN 4. Type II DM 5. H/o [facility] 6. atrial fibrillation with intermittently elevated HR 7. Hypernatremia- change IVF- D51/2 NS at 60 cc/hr 8. Hypokalemia- BMP to fu 9. Anemia- Monitor cbc,transfuse PRN Plan: continue PO magnesium and PO KCL Urine studies, and Uric acid unremarkable BP stable renal us showed -Atrophic right kidney. will continue to follow up on patient SNF placment in process Consultation Date/Type/Reason Admit Date/Time Oct 07, 2016 at 22:49 Initial Consult Date 10/08/16 Type of Consultation: Nephrology Referring Provider: YASIR HART MD 24 HR Interval Summary Free Text/Dictation no acute events, BUN 40, Cr 1.01 Exam/Review of Systems Vital Signs Vitals Vital Signs Date Time Temp Pulse Resp B/P Pulse Ox O2 Delivery O2 Flow Rate FiO2 10/17/16 07:55 97.6 85 23 110/59 98 10/17/16 07:28 21 10/16/16 19:55 Nasal Cannula 2.0 Intake and Output 10/16/16 10/16/16 10/17/16 15:00 23:00 07:00 Intake Total 800 ml 900 ml Output Total 550 ml 800 ml Balance 250 ml 100 ml Exam Constitutional: more awake today Respiratory: congested cough, crackles/rales, diminished breath sounds Cardiovascular: irregular rhythm, regular rate and rhythm Gastrointestinal: non-tender, soft, + g tube in place, site clear Musculoskeletal: joint tenderness, muscle weakness, range of motion, swelling 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: not cooperative Results Result Diagram: 10/17/16 0510 10/17/16 0510 Results 24 hrs Laboratory Tests Test 10/17/16 05:10 10/17/16 12:06 White Blood Count 10.4 Red Blood Count 3.32 L Hemoglobin 9.7 L Hematocrit 29.9 L Mean Corpuscular Volume 90.1 Mean Corpuscular Hemoglobin 29.2 Mean Corpuscular Hemoglobin Concent 32.4 Red Cell Distribution Width 13.2 Platelet Count 298 Mean Platelet Volume 10.0 Neutrophils % 69.0 Lymphocytes % 19.0 Monocytes % 6.1 Eosinophils % 1.2 Basophils % 0.5 Nucleated Red Blood Cells % 0.0 Neutrophils # (Manual) 7.2 Lymphocytes # 2.0 Monocytes # 0.6 Eosinophils # 0.1 Basophils # 0.1 Nucleated Red Blood Cells # 0.0 Sodium Level 139 Potassium Level 4.4 Chloride Level 98 Carbon Dioxide Level 28 Anion Gap 17 H Blood Urea Nitrogen 40 H Creatinine 1.01 H Glucose Level 130 Calcium Level 9.1 Iron Level 71 Total Iron Binding Capacity 279 Percent Iron Saturation 25 Total Bilirubin 0.2 Direct Bilirubin 0.00 Indirect Bilirubin 0.2 Aspartate Amino Transf (AST/SGOT) 29 Alanine Aminotransferase (ALT/SGPT) 33 Alkaline Phosphatase 101 Total Protein 6.2 Albumin 3.1 L Globulin 3.10 Albumin/Globulin Ratio 1.00 Lab Scanned Report REFERENCE LAB Medications Medications Current Medications Acetaminophen (Tylenol Supp) 325 mg Q8 PRN [place] FEVER; Start 10/08/16 at 00:30 Metoprolol Tartrate (Lopressor) 50 mg BID NGT Last administered on 10/17/16 09 :38; Admin Dose 50 MG; Start 10/09/16 at 21:00 Hydralazine HCl (Apresoline) 10 mg Q6H PRN IV ELEVATED BLOOD PRESSURE; Start at 13:30 Ferrous Sulfate (Feosol Liquid Cup) 300 mg DAILY NGT Last administered on 09:36; Admin Dose 300 MG; Start 10/10/16 at 09:00 Famotidine (Pepcid) 20 mg DAILY NGT Last administered on 10/17/16 09:38; Admin Dose 20 MG; Start 10/10/16 at 09:00 Amlodipine Besylate (Norvasc) 5 mg DAILY PO Last administered on 10/17/16 09: 37; Admin Dose 5 MG; Start 10/10/16 at 13:30 Clopidogrel Bisulfate (plaVIX) 75 mg DAILY GTB Last administered on 10/17/16 09:38; Admin Dose 75 MG; Start 10/11/16 at 09:00 Clonidine HCl (Catapres-Tts 1 Patch) 1 patch Q7D TRANSDERM Last administered on 10/10/16 21:57; Admin Dose 1 PATCH; Start 10/10/16 at 21:00 Levofloxacin (Levaquin) 500 mg DAILY@06 GTB Last administered on 10/17/16 05: 38; Admin Dose 500 MG; Start 10/12/16 at 10:00 Magnesium Oxide (Mag-Ox 400) 400 mg DAILY GTB Last administered on 10/17/16 09 :38; Admin Dose 400 MG; Start 10/13/16 at 16:00 Clindamycin HCl (Cleocin) 300 mg Q8 GTB Last administered on 10/17/16 05:38; Admin Dose 300 MG; Start 10/16/16 at 12:50 Potassium Chloride (Potassium Chloride Pwd/Soln) 20 meq BID GTB Last administered on 10/17/16 09:36; Admin Dose 20 MEQ; Start 10/16/16 at 12:51 Docusate Sodium (Colace Liquid Cup) 250 mg BID GTB Last administered on 09:36; Admin Dose 250 MG; Start 10/16/16 at 21:00 MAINOR HUTCHISON MD Oct 17, 2016 12:53
[2016-10-17 14:17] VITALS: BP 115/54; RESP 22
--- NOTE | 2016-10-17 14:17 | CONS ---
Date/Time of Note Date/Time of Note DATE: 10/17/16 TIME: 14:17 Assessment/Plan Assessment/Plan Chief Complaint/Hosp Course 89-year-old female with a history of diabetes mellitus, hypertension, atrial fibrillation had a stroke a few days ago for which she was hospitalized at [facility]. Swallow study was done patient failed swallow study so NG tube was passed and was transferred to custodial. Patient was supposed to have a G-tube as outpatient but in the interim she aspirated became septic and was brought to the emergency room and admitted to [facility]. Patient is nonverbal. All the information gathered by reviewing the chart. Problems: Additional Assessment/Plan Additional Assessment/Plan 1. CVA status post TPA at [facility] 2. Left hemiplegia 3. Dysphagia 4. Prerenal azotemia 5. Anemia 6. Diabetes mellitus 7. Hypertension 8. Atrial fibrillation 9. Possible aspiration pneumonia 10. 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, patient is awake oriented no responding to command 11.s/p PEG Plan increase feeding slowly aspiration precaution continue present care Patient is on Plavix now no evidence of acute bleeding No evidence of aspiration Awaiting for the placement to SNF Consultation Date/Type/Reason Admit Date/Time Oct 07, 2016 at 22:49 Initial Consult Date 10/08/16 Type of Consultation: Nephrology Referring Provider: YASIR HART MD 24 HR Interval Summary Constitutional: improved, no complaints Exam/Review of Systems Vital Signs Vitals Vital Signs Date Time Temp Pulse Resp B/P Pulse Ox O2 Delivery O2 Flow Rate FiO2 10/17/16 07:55 97.6 85 23 110/59 98 10/17/16 07:28 21 10/16/16 19:55 Nasal Cannula 2.0 Intake and Output 10/16/16 10/16/16 10/17/16 15:00 23:00 07:00 Intake Total 800 ml 900 ml Output Total 550 ml 800 ml Balance 250 ml 100 ml Exam Constitutional: alert, oriented, well developed Psych: nl mood/affect, no complaints Head: atraumatic, normocephalic Eyes: EOMI, PERRL, nl conjunctiva, nl lids, nl sclera ENMT: nl external ears & nose, nl lips & teeth, nl nasal mucosa & septum Neck: non-tender, supple Respiratory: clear to auscultation, normal air movement Cardiovascular: nl pulses, regular rate and rhythm Gastrointestinal: nl liver, spleen, non-tender, soft Musculoskeletal: nl extremities to inspection, nl gait and stance Extremities: normal pulses 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: WET END SUPERVISOR II-XII intact, nl mental status, nl speech, nl strength Skin: nl turgor, No rash or lesions Lymph: nl lymph nodes Results Result Diagram: 10/17/16 0510 10/17/16 0510 Results 24 hrs Laboratory Tests Test 10/17/16 05:10 10/17/16 12:06 White Blood Count 10.4 Red Blood Count 3.32 L Hemoglobin 9.7 L Hematocrit 29.9 L Mean Corpuscular Volume 90.1 Mean Corpuscular Hemoglobin 29.2 Mean Corpuscular Hemoglobin Concent 32.4 Red Cell Distribution Width 13.2 Platelet Count 298 Mean Platelet Volume 10.0 Neutrophils % 69.0 Lymphocytes % 19.0 Monocytes % 6.1 Eosinophils % 1.2 Basophils % 0.5 Nucleated Red Blood Cells % 0.0 Neutrophils # (Manual) 7.2 Lymphocytes # 2.0 Monocytes # 0.6 Eosinophils # 0.1 Basophils # 0.1 Nucleated Red Blood Cells # 0.0 Sodium Level 139 Potassium Level 4.4 Chloride Level 98 Carbon Dioxide Level 28 Anion Gap 17 H Blood Urea Nitrogen 40 H Creatinine 1.01 H Glucose Level 130 Calcium Level 9.1 Iron Level 71 Total Iron Binding Capacity 279 Percent Iron Saturation 25 Total Bilirubin 0.2 Direct Bilirubin 0.00 Indirect Bilirubin 0.2 Aspartate Amino Transf (AST/SGOT) 29 Alanine Aminotransferase (ALT/SGPT) 33 Alkaline Phosphatase 101 Total Protein 6.2 Albumin 3.1 L Globulin 3.10 Albumin/Globulin Ratio 1.00 Lab Scanned Report REFERENCE LAB Medications Medications Current Medications Acetaminophen (Tylenol Supp) 325 mg Q8 PRN [place] FEVER; Start 10/08/16 at 00:30 Metoprolol Tartrate (Lopressor) 50 mg BID NGT Last administered on 10/17/16 09 :38; Admin Dose 50 MG; Start 10/09/16 at 21:00 Hydralazine HCl (Apresoline) 10 mg Q6H PRN IV ELEVATED BLOOD PRESSURE; Start at 13:30 Ferrous Sulfate (Feosol Liquid Cup) 300 mg DAILY NGT Last administered on 09:36; Admin Dose 300 MG; Start 10/10/16 at 09:00 Famotidine (Pepcid) 20 mg DAILY NGT Last administered on 10/17/16 09:38; Admin Dose 20 MG; Start 10/10/16 at 09:00 Amlodipine Besylate (Norvasc) 5 mg DAILY PO Last administered on 10/17/16 09: 37; Admin Dose 5 MG; Start 10/10/16 at 13:30 Clopidogrel Bisulfate (plaVIX) 75 mg DAILY GTB Last administered on 10/17/16 09:38; Admin Dose 75 MG; Start 10/11/16 at 09:00 Clonidine HCl (Catapres-Tts 1 Patch) 1 patch Q7D TRANSDERM Last administered on 10/10/16 21:57; Admin Dose 1 PATCH; Start 10/10/16 at 21:00 Levofloxacin (Levaquin) 500 mg DAILY@06 GTB Last administered on 10/17/16 05: 38; Admin Dose 500 MG; Start 10/12/16 at 10:00 Magnesium Oxide (Mag-Ox 400) 400 mg DAILY GTB Last administered on 10/17/16 09 :38; Admin Dose 400 MG; Start 10/13/16 at 16:00 Clindamycin HCl (Cleocin) 300 mg Q8 GTB Last administered on 10/17/16 13:46; Admin Dose 300 MG; Start 10/16/16 at 12:50 Potassium Chloride (Potassium Chloride Pwd/Soln) 20 meq BID GTB Last administered on 10/17/16 09:36; Admin Dose 20 MEQ; Start 10/16/16 at 12:51 Docusate Sodium (Colace Liquid Cup) 250 mg BID GTB Last administered on 09:36; Admin Dose 250 MG; Start 10/16/16 at 21:00 SANTOS GARCIA MD Oct 17, 2016 14:17
--- NOTE | 2016-10-17 18:17 | PN ---
Date/Time of Note Date/Time of Note DATE: 10/17/16 TIME: 18:13 Assessment/Plan VTE Prophylaxis VTE Prophylaxis Intervention: ambulation, anti-embolic stocking VTE Contraindication Reason: peripheral vascular disease Lines/Catheters IV Catheter Type (from Nrsg): [place] [employer] [place] line still needed: No Urinary Cath still in place: Yes Reason Cath still needed: urinary retention Assessment/Plan Chief Complaint/Hosp Course Chronic atrial fibrillation: Had rapid rates on admission, now better after IVF and antibiotics. Controlled Aspiration PNA ARF: resolved Recent CVA s/p TPA DM HTN -metoprolol 50mg BID -amlodipine 5mg -started on plavix (would prefer anticoagulation with coumadin or NOAC with pt' s h/o stroke and high risk for recurrence) -antibiotics per primary Problems: Assessment/Plan 1.CVA with left hemiplegia 3 weeks ago, s/p TPA 09/28; was in ICU of [facility] with involuntary movements of the left upper extremity. 2.S/P G tube placement-feeding continue at 40cc/hr. 3.Lactic acidosis- improved 4.ATN with improvement 5.Sepsis-aspiration pneumonia and /or URI/uti-improving 6.Severe PAD with carotid bruits bilaterally 7.DM type 2 new onset 8.Dysphagia, dysarthria, s/p failed one swallowing evaluation , now vith goot verbalisationa nd positive gag reflex. 9.Lethargic- more alert. 10.Iron deficiency- continue supplementation. 11.Anemia of chronic disease- drop of hct to 25- continue iron supplementation 12.Atrial fibrillation with controlled ventricular rate- unknown time duration 13.PTSD after acute stress months ago 14.S/P midline laparotomy with cholecystectomy 15.Hematuria- cleared ad oculus and uti improving 16.Urinary incontinence- with Castro drains clear urine. 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 22.Low magnesium, vit "D" and iron levels Cont'd Hospitalization Reason: if no transfer to rehab; plan to [place] to snf. Subjective 24 Hr Interval Summary Free Text/Dictation it is cold. Constitutional: disoriented, improved, requiring IVF, requiring O2, No chills, No diaphoresis, No febrile, No no complaints, No other, No poor po Eyes: No discharge, No no complaints, No other, No pain, No redness, No visual change ENT: No bleeding, No congestion, No discharge, No dysphagia, No no complaints, No other, No pain, No sore throat Respiratory: No cough, No no complaints, No other, No pain, No pleuritic pain, No shortness of breath, No sputum, No wheezing Cardiovascular: palpitations, No chest pain, No edema, No lightheadedness, No no complaints, No orthopenea , No other, No paroxysmal nocturnal dyspnea Gastrointestinal: constipation, flatus, passing stool, No blood, No decreased appetite, No diarrhea, No nausea, No no complaints, No other, No pain, No vomiting Genitourinary: other (castro drains clear urine.), No bleeding, No discharge, No dysuria, No flank pain, No hematuria, No no complaints Skin: bruising Neurologic: dizziness, headache, No confusion, No focal-weakness, No no complaints, No other, No seizure, No syncope Lymphatic: No adenopathy, No lymphadema, No no complaints, No other, No tender nodes Psychological: anxiety, depression, No confusion, No nl mood/affect, No no complaints, No other, No suicidal Exam/Review of Systems Vital Signs Vitals Vital Signs Date Time Temp Pulse Resp B/P Pulse Ox O2 Delivery O2 Flow Rate FiO2 10/17/16 16:27 58 17 96 21 10/17/16 14:17 98.3 115/54 10/16/16 19:55 Nasal Cannula 2.0 Intake and Output 10/16/16 10/16/16 10/17/16 15:00 23:00 07:00 Intake Total 800 ml 900 ml Output Total 550 ml 800 ml Balance 250 ml 100 ml Exam Constitutional: alert, frail, oriented, No distress, No non-verbal, No obese, No other, No well developed Psych: confusion, No anxiety, No depression, No nl mood/affect, No no complaints, No other, No suicidal Head: atraumatic, normocephalic, No hematomas, No lacerations, No other Eyes: EOMI, nl lids, other (left hemineglect.), No PERRL, No fundi, disc, No icteric, No nl conjunctiva, No nl sclera ENMT: nl external ears & nose, nl nasal mucosa & septum, No intubated, No mucosa pink and moist, No nl lips & teeth, No other, No tympanic membranes Neck: bruits, jvd, nuchal rigidity Respiratory: clear to auscultation, congested cough, diminished breath sounds, No crackles/rales, No intercostal retraction, No labored breathing, No normal air movement, No other, No respirations, No tactile fremitus, No wheezing Cardiovascular: bruits, irregular rhythm, jugular venous distention (JVD), systolic murmur, No S3, No S4, No diastolic murmur, No edema, No gallop, No murmurs/extra sounds, No nl pulses, No other, No regular rate and rhythm, No rub Gastrointestinal: bowel sounds, nl liver, spleen, non-tender, soft, surgical scars, No ascites, No distended, No firm, No hepatomegaly, No mass, No other, No rebound or guarding, No splenomegaly, No tender Musculoskeletal: joint tenderness, muscle tone, muscle weakness, No nl extremities to inspection, No nl gait and stance, No other, No range of motion, No spine non-tender, No swelling Extremities: No calf tenderness, No clubbing, No cyanosis, No edema, No normal pulses, No other, No palpable cord, No pitting pedal edema, No tenderness 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: FIRST OFFICER II-XII intact (decreased hearing. ), numbness Skin: No diaphoresis, No ecchymosis, No laceration, No nl turgor, No other, No puncture, No rash or lesions Results Result Diagram: 10/17/16 0510 10/17/16 0510 Results 24 hrs Laboratory Tests Test 10/17/16 05:10 10/17/16 12:06 White Blood Count 10.4 Red Blood Count 3.32 L Hemoglobin 9.7 L Hematocrit 29.9 L Mean Corpuscular Volume 90.1 Mean Corpuscular Hemoglobin 29.2 Mean Corpuscular Hemoglobin Concent 32.4 Red Cell Distribution Width 13.2 Platelet Count 298 Mean Platelet Volume 10.0 Neutrophils % 69.0 Lymphocytes % 19.0 Monocytes % 6.1 Eosinophils % 1.2 Basophils % 0.5 Nucleated Red Blood Cells % 0.0 Neutrophils # (Manual) 7.2 Lymphocytes # 2.0 Monocytes # 0.6 Eosinophils # 0.1 Basophils # 0.1 Nucleated Red Blood Cells # 0.0 Sodium Level 139 Potassium Level 4.4 Chloride Level 98 Carbon Dioxide Level 28 Anion Gap 17 H Blood Urea Nitrogen 40 H Creatinine 1.01 H Glucose Level 130 Calcium Level 9.1 Iron Level 71 Total Iron Binding Capacity 279 Percent Iron Saturation 25 Total Bilirubin 0.2 Direct Bilirubin 0.00 Indirect Bilirubin 0.2 Aspartate Amino Transf (AST/SGOT) 29 Alanine Aminotransferase (ALT/SGPT) 33 Alkaline Phosphatase 101 Total Protein 6.2 Albumin 3.1 L Globulin 3.10 Albumin/Globulin Ratio 1.00 Lab Scanned Report REFERENCE LAB Medications Medications Current Medications Acetaminophen (Tylenol Supp) 325 mg Q8 PRN [place] FEVER; Start 10/08/16 at 00:30 Metoprolol Tartrate (Lopressor) 50 mg BID NGT Last administered on 10/17/16 09 :38; Admin Dose 50 MG; Start 10/09/16 at 21:00 Hydralazine HCl (Apresoline) 10 mg Q6H PRN IV ELEVATED BLOOD PRESSURE; Start at 13:30 Ferrous Sulfate (Feosol Liquid Cup) 300 mg DAILY NGT Last administered on 09:36; Admin Dose 300 MG; Start 10/10/16 at 09:00 Famotidine (Pepcid) 20 mg DAILY NGT Last administered on 10/17/16 09:38; Admin Dose 20 MG; Start 10/10/16 at 09:00 Amlodipine Besylate (Norvasc) 5 mg DAILY PO Last administered on 10/17/16 09: 37; Admin Dose 5 MG; Start 10/10/16 at 13:30 Clopidogrel Bisulfate (plaVIX) 75 mg DAILY GTB Last administered on 10/17/16 09:38; Admin Dose 75 MG; Start 10/11/16 at 09:00 Clonidine HCl (Catapres-Tts 1 Patch) 1 patch Q7D TRANSDERM Last administered on 10/10/16 21:57; Admin Dose 1 PATCH; Start 10/10/16 at 21:00 Levofloxacin (Levaquin) 500 mg DAILY@06 GTB Last administered on 10/17/16 05: 38; Admin Dose 500 MG; Start 10/12/16 at 10:00 Magnesium Oxide (Mag-Ox 400) 400 mg DAILY GTB Last administered on 10/17/16 09 :38; Admin Dose 400 MG; Start 10/13/16 at 16:00 Clindamycin HCl (Cleocin) 300 mg Q8 GTB Last administered on 10/17/16 13:46; Admin Dose 300 MG; Start 10/16/16 at 12:50 Potassium Chloride (Potassium Chloride Pwd/Soln) 20 meq BID GTB Last administered on 10/17/16 09:36; Admin Dose 20 MEQ; Start 10/16/16 at 12:51 Docusate Sodium (Colace Liquid Cup) 250 mg BID GTB Last administered on 09:36; Admin Dose 250 MG; Start 10/16/16 at 21:00 YASIR HART MD Oct 17, 2016 18:17
[2016-10-17 20:41] VITALS: BP 114/54; RESP 18
[2016-10-17] MEDS: CLONIDINE 0.1 MG/24 HR PATCH TRANSDERM SCH (21:23)
--- NOTE | 2016-10-17 21:37 | CONS ---
Date/Time of Note Date/Time of Note DATE: 10/17/16 TIME: 21:36 Assessment/Plan Assessment/Plan Chief Complaint/Hosp Course ANEMIA N- CYTIC WITH N RDW WITH DROP H/H DURING HOSPITALIZATION MONITOR BLOOD COUNT CLOSELY OBSERVE FOR BLEEDING AND HEMOLYSIS + COMPONENT ACD CHECK BLOOD COUNT IN AM acute kidney injury on CKD sepsis, dysphagia, aspiration PNA HTN Type II DM H/o recent CVA s/p tPA at [facility] atrial fibrillation with intermittently elevated HR Problems: Consultation Date/Type/Reason Admit Date/Time Oct 07, 2016 at 22:49 Initial Consult Date 10/08/16 Type of Consultation: HEMEONC Referring Provider: YASIR HART MD 24 HR Interval Summary Free Text/Dictation ALL NOTED IMPROVING Exam/Review of Systems Vital Signs Vitals Vital Signs Date Time Temp Pulse Resp B/P Pulse Ox O2 Delivery O2 Flow Rate FiO2 10/17/16 20:41 98.2 72 18 114/54 99 10/17/16 16:27 21 10/16/16 19:55 Nasal Cannula 2.0 Intake and Output 10/16/16 10/16/16 10/17/16 15:00 23:00 07:00 Intake Total 800 ml 900 ml Output Total 550 ml 800 ml Balance 250 ml 100 ml Exam Constitutional: non-verbal Psych: no complaints Head: normocephalic Eyes: nl conjunctiva Respiratory: congested cough, crackles/rales, diminished breath sounds Cardiovascular: irregular rhythm, regular rate and rhythm Gastrointestinal: non-tender, soft Musculoskeletal: joint tenderness, muscle weakness, range of motion, swelling 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: lethargic, unresponsive Skin: nl turgor Lymph: nl lymph nodes Results Result Diagram: 10/17/16 0510 10/17/16 0510 Results 24 hrs Laboratory Tests Test 10/17/16 05:10 10/17/16 12:06 White Blood Count 10.4 Red Blood Count 3.32 L Hemoglobin 9.7 L Hematocrit 29.9 L Mean Corpuscular Volume 90.1 Mean Corpuscular Hemoglobin 29.2 Mean Corpuscular Hemoglobin Concent 32.4 Red Cell Distribution Width 13.2 Platelet Count 298 Mean Platelet Volume 10.0 Neutrophils % 69.0 Lymphocytes % 19.0 Monocytes % 6.1 Eosinophils % 1.2 Basophils % 0.5 Nucleated Red Blood Cells % 0.0 Neutrophils # (Manual) 7.2 Lymphocytes # 2.0 Monocytes # 0.6 Eosinophils # 0.1 Basophils # 0.1 Nucleated Red Blood Cells # 0.0 Sodium Level 139 Potassium Level 4.4 Chloride Level 98 Carbon Dioxide Level 28 Anion Gap 17 H Blood Urea Nitrogen 40 H Creatinine 1.01 H Glucose Level 130 Calcium Level 9.1 Iron Level 71 Total Iron Binding Capacity 279 Percent Iron Saturation 25 Total Bilirubin 0.2 Direct Bilirubin 0.00 Indirect Bilirubin 0.2 Aspartate Amino Transf (AST/SGOT) 29 Alanine Aminotransferase (ALT/SGPT) 33 Alkaline Phosphatase 101 Total Protein 6.2 Albumin 3.1 L Globulin 3.10 Albumin/Globulin Ratio 1.00 Lab Scanned Report REFERENCE LAB Medications Medications Current Medications Acetaminophen (Tylenol Supp) 325 mg Q8 PRN [place] FEVER; Start 10/08/16 at 00:30 Metoprolol Tartrate (Lopressor) 50 mg BID NGT Last administered on 10/17/16 21 :23; Admin Dose 50 MG; Start 10/09/16 at 21:00 Hydralazine HCl (Apresoline) 10 mg Q6H PRN IV ELEVATED BLOOD PRESSURE; Start at 13:30 Ferrous Sulfate (Feosol Liquid Cup) 300 mg DAILY NGT Last administered on 09:36; Admin Dose 300 MG; Start 10/10/16 at 09:00 Famotidine (Pepcid) 20 mg DAILY NGT Last administered on 10/17/16 09:38; Admin Dose 20 MG; Start 10/10/16 at 09:00 Amlodipine Besylate (Norvasc) 5 mg DAILY PO Last administered on 10/17/16 09: 37; Admin Dose 5 MG; Start 10/10/16 at 13:30 Clopidogrel Bisulfate (plaVIX) 75 mg DAILY GTB Last administered on 10/17/16 09:38; Admin Dose 75 MG; Start 10/11/16 at 09:00 Clonidine HCl (Catapres-Tts 1 Patch) 1 patch Q7D TRANSDERM Last administered on 10/17/16 21:23; Admin Dose 1 PATCH; Start 10/10/16 at 21:00 Levofloxacin (Levaquin) 500 mg DAILY@06 GTB Last administered on 10/17/16 05: 38; Admin Dose 500 MG; Start 10/12/16 at 10:00 Magnesium Oxide (Mag-Ox 400) 400 mg DAILY GTB Last administered on 10/17/16 09 :38; Admin Dose 400 MG; Start 10/13/16 at 16:00 Clindamycin HCl (Cleocin) 300 mg Q8 GTB Last administered on 10/17/16 21:23; Admin Dose 300 MG; Start 10/16/16 at 12:50 Potassium Chloride (Potassium Chloride Pwd/Soln) 20 meq BID GTB Last administered on 10/17/16 21:22; Admin Dose 20 MEQ; Start 10/16/16 at 12:51 Docusate Sodium (Colace Liquid Cup) 250 mg BID GTB Last administered on 21:22; Admin Dose 250 MG; Start 10/16/16 at 21:00 TORRI HARLEY MD Oct 17, 2016 21:37
[2016-10-18] MEDS: ALBUTEROL 0.083% (NEB) 2.5 MG/3 ML AMP HHN SCH ×3 (00:39→16:29)
[2016-10-18] MEDS: IPRATROPIUM (NEB) 0.5 MG/2.5 ML AMP HHN SCH ×3 (00:39→16:29)
[2016-10-18 02:36] VITALS: BP 102/53; RESP 16
[2016-10-18] MEDS: LEVOFLOXACIN 500 MG TAB GTB SCH (05:15)
[2016-10-18] MEDS: CLINDAMYCIN 300 MG CAP GTB SCH ×3 (05:15→21:32)
[2016-10-18 08:06] VITALS: BP 113/56; RESP 18
[2016-10-18] MEDS: FAMOTIDINE 20 MG TAB NGT SCH (09:12)
[2016-10-18] MEDS: FERROUS SULFATE 60 MG/ML 5ML CUP NGT SCH (09:12)
[2016-10-18] MEDS: DOCUSATE SODIUM 10 MG/ML (10ML CUP) GTB SCH ×2 (09:12→21:32)
[2016-10-18] MEDS: CLOPIDOGREL 75 MG TAB GTB SCH (09:12)
[2016-10-18] MEDS: AMLODIPINE 5 MG TAB PO SCH (09:13)
[2016-10-18] MEDS: MAGNESIUM OXIDE 400 MG TAB GTB SCH (09:13)
[2016-10-18] MEDS: METOPROLOL 50 MG TAB NGT SCH ×2 (09:13→21:32)
[2016-10-18] MEDS: POTASSIUM CHLORIDE 20 MEQ POWDER FOR ORAL SOLN GTB SCH ×2 (09:14→21:32)
--- NOTE | 2016-10-18 09:27 | PN ---
Date/Time of Note Date/Time of Note DATE: 10/18/16 TIME: 09:23 Assessment/Plan VTE Prophylaxis VTE Prophylaxis Intervention: ambulation, anti-embolic stocking VTE Contraindication Reason: peripheral vascular disease Lines/Catheters IV Catheter Type (from Nrsg): Saline Lock Urinary Cath still in place: Yes Reason Cath still needed: urinary retention Assessment/Plan Chief Complaint/Hosp Course Chronic atrial fibrillation: Had rapid rates on admission, now better after IVF and antibiotics. Controlled Aspiration PNA ARF: resolved Recent CVA s/p TPA DM HTN -metoprolol 50mg BID -amlodipine 5mg -started on plavix (would prefer anticoagulation with coumadin or NOAC with pt' s h/o stroke and high risk for recurrence) -antibiotics per primary Problems: Assessment/Plan 1.CVA with left hemiplegia 3 weeks ago, s/p TPA 09/28; was in ICU of [facility] with involuntary movements of the left upper extremity. 2.S/P G tube placement-feeding continue at 40cc/hr. 3.Lactic acidosis- improved 4.ATN with improvement 5.Sepsis-aspiration pneumonia and /or URI/uti-improving 6.Severe PAD with carotid bruits bilaterally 7.DM type 2 new onset 8.Dysphagia, dysarthria, s/p failed one swallowing evaluation , now vith goot verbalisationa nd positive gag reflex. 9.Lethargic- more alert. 10.Iron deficiency- continue supplementation. 11.Anemia of chronic disease- drop of hct to 25- continue iron supplementation 12.Atrial fibrillation with controlled ventricular rate- unknown time duration 13.PTSD after acute stress months ago 14.S/P midline laparotomy with cholecystectomy 15.Hematuria- cleared ad oculus and uti improving 16.Urinary incontinence- with Arevalo drains clear urine. 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 22.Low magnesium, vit "D" and iron levels Cont'd Hospitalization Reason: rehab. Subjective 24 Hr Interval Summary Free Text/Dictation No complains. I am ok. No f/c; no n/v. Constitutional: disoriented, poor po, requiring IVF, requiring O2 Eyes: No discharge, No no complaints, No other, No pain, No redness, No visual change ENT: No bleeding, No congestion, No discharge, No dysphagia, No no complaints, No other, No pain, No sore throat Respiratory: cough, No no complaints, No other, No pain, No pleuritic pain, No shortness of breath, No sputum, No wheezing Cardiovascular: No chest pain, No edema, No lightheadedness, No no complaints, No orthopenea, No other, No palpitations, No paroxysmal nocturnal dyspnea Gastrointestinal: constipation, passing stool, No blood, No decreased appetite, No diarrhea, No flatus, No nausea, No no complaints, No other, No pain, No vomiting Genitourinary: No bleeding, No discharge, No dysuria, No flank pain, No hematuria, No no complaints, No other Musculoskeletal: bone/joint pain, other (left hemiplegia.) Skin: No bruising, No erythema, No laceration, No no complaints, No other, No pruritis, No rash, No skin lesions Neurologic: focal-weakness, No confusion, No dizziness, No headache, No no complaints, No other, No seizure, No syncope Exam/Review of Systems Vital Signs Vitals Vital Signs Date Time Temp Pulse Resp B/P Pulse Ox O2 Delivery O2 Flow Rate FiO2 10/18/16 08:13 81 16 98 21 10/18/16 08:06 98.0 113/56 10/16/16 19:55 Nasal Cannula 2.0 Intake and Output 10/17/16 10/17/16 10/18/16 15:00 23:00 07:00 Intake Total 975 ml 1000 ml Output Total 900 ml 800 ml Balance 75 ml 200 ml Exam Constitutional: alert, frail, oriented (disoriented.), No distress, No non-verbal, No obese, No other, No well developed Psych: confusion, depression, No anxiety, No nl mood/affect, No no complaints, No other, No suicidal Head: atraumatic, hematomas, lacerations, normocephalic, other Eyes: PERRL, nl conjunctiva, nl lids, No EOMI, No fundi, disc, No icteric, No nl sclera, No other ENMT: nl external ears & nose, nl lips & teeth, nl nasal mucosa & septum, tympanic membranes, No intubated, No mucosa pink and moist, No other Neck: bruits, jvd, non-tender, No masses, No nuchal rigidity, No other, No supple, No thyromegaly Respiratory: congested cough, diminished breath sounds, normal air movement, No clear to auscultation, No crackles/rales, No intercostal retraction, No labored breathing, No other, No respirations, No tactile fremitus, No wheezing Cardiovascular: bruits, jugular venous distention (JVD), systolic murmur, No S3, No S4, No diastolic murmur, No edema, No gallop, No irregular rhythm, No murmurs/extra sounds, No nl pulses, No other, No regular rate and rhythm, No rub Gastrointestinal: bowel sounds, nl liver, spleen, non-tender, soft, surgical scars, No ascites, No distended, No firm, No hepatomegaly, No mass, No other, No rebound or guarding, No splenomegaly, No tender Musculoskeletal: joint tenderness, muscle tone, muscle weakness, No nl extremities to inspection, No nl gait and stance, No other, No range of motion, No spine non-tender, No swelling 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, confused, nl speech, numbness Results Result Diagram: 10/17/1650910/17/16 0510 Results 24 hrs Laboratory Tests Test 10/17/16 12:06 Lab Scanned Report REFERENCE LAB Medications Medications Current Medications Acetaminophen (Tylenol Supp) 325 mg Q8 PRN [place] FEVER; Start 10/08/16 at 00:30 Metoprolol Tartrate (Lopressor) 50 mg BID NGT Last administered on 10/17/16 21 :23; Admin Dose 50 MG; Start 10/09/16 at 21:00 Hydralazine HCl (Apresoline) 10 mg Q6H PRN IV ELEVATED BLOOD PRESSURE; Start at 13:30 Ferrous Sulfate (Feosol Liquid Cup) 300 mg DAILY NGT Last administered on 09:36; Admin Dose 300 MG; Start 10/10/16 at 09:00 Famotidine (Pepcid) 20 mg DAILY NGT Last administered on 10/17/16 09:38; Admin Dose 20 MG; Start 10/10/16 at 09:00 Amlodipine Besylate (Norvasc) 5 mg DAILY PO Last administered on 10/17/16 09: 37; Admin Dose 5 MG; Start 10/10/16 at 13:30 Clopidogrel Bisulfate (plaVIX) 75 mg DAILY GTB Last administered on 10/17/16 09:38; Admin Dose 75 MG; Start 10/11/16 at 09:00 Clonidine HCl (Catapres-Tts 1 Patch) 1 patch Q7D TRANSDERM Last administered on 10/17/16 21:23; Admin Dose 1 PATCH; Start 10/10/16 at 21:00 Levofloxacin (Levaquin) 500 mg DAILY@06 GTB Last administered on 10/18/16 05: 15; Admin Dose 500 MG; Start 10/12/16 at 10:00 Magnesium Oxide (Mag-Ox 400) 400 mg DAILY GTB Last administered on 10/17/16 09 :38; Admin Dose 400 MG; Start 10/13/16 at 16:00 Clindamycin HCl (Cleocin) 300 mg Q8 GTB Last administered on 10/18/16 05:15; Admin Dose 300 MG; Start 10/16/16 at 12:50 Potassium Chloride (Potassium Chloride Pwd/Soln) 20 meq BID GTB Last administered on 10/17/16 21:22; Admin Dose 20 MEQ; Start 10/16/16 at 12:51 Docusate Sodium (Colace Liquid Cup) 250 mg BID GTB Last administered on 21:22; Admin Dose 250 MG; Start 10/16/16 at 21:00 YASIR HART MD Oct 18, 2016 09:26
--- NOTE | 2016-10-18 09:27 | CONS ---
Date/Time of Note Date/Time of Note DATE: 10/18/16 TIME: 09:26 Assessment/Plan Assessment/Plan Chief Complaint/Hosp Course Chronic atrial fibrillation: Had rapid rates on admission, now better after IVF and antibiotics. Controlled Aspiration PNA ARF: resolved Recent CVA s/p TPA DM HTN -metoprolol 50mg BID -amlodipine 5mg -on plavix (would prefer anticoagulation with coumadin or NOAC with pt's h/o stroke and high risk for recurrence, can be addressed as outpt) Problems: Consultation Date/Type/Reason Admit Date/Time Oct 07, 2016 at 22:49 Initial Consult Date 10/08/16 Type of Consultation: Cardiology Referring Provider: YASIR HART MD 24 HR Interval Summary Free Text/Dictation No o/n events. Pt able to communicate partially. Awaiting placement Exam/Review of Systems Vital Signs Vitals Vital Signs Date Time Temp Pulse Resp B/P Pulse Ox O2 Delivery O2 Flow Rate FiO2 10/18/16 08:13 81 16 98 21 10/18/16 08:06 98.0 113/56 10/16/16 19:55 Nasal Cannula 2.0 Intake and Output 10/17/16 10/17/16 10/18/16 15:00 23:00 07:00 Intake Total 975 ml 1000 ml Output Total 900 ml 800 ml Balance 75 ml 200 ml Exam Constitutional: alert Psych: nl mood/affect Head: atraumatic, normocephalic Neck: No jvd Respiratory: clear to auscultation, diminished breath sounds, No crackles/rales Cardiovascular: No edema, No regular rate and rhythm, No systolic murmur Gastrointestinal: non-tender, soft 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: No nl speech Results Result Diagram: 10/17/16 0510 10/17/16 0510 Results 24 hrs Laboratory Tests Test 10/17/16 12:06 Lab Scanned Report REFERENCE LAB Medications Medications Current Medications Acetaminophen (Tylenol Supp) 325 mg Q8 PRN [place] FEVER; Start 10/08/16 at 00:30 Metoprolol Tartrate (Lopressor) 50 mg BID NGT Last administered on 10/17/16t 21 :23; Admin Dose 50 MG; Start 10/09/16 at 21:00 Hydralazine HCl (Apresoline) 10 mg Q6H PRN IV ELEVATED BLOOD PRESSURE; Start at 13:30 Ferrous Sulfate (Feosol Liquid Cup) 300 mg DAILY NGT Last administered on 09:36; Admin Dose 300 MG; Start 10/10/16 at 09:00 Famotidine (Pepcid) 20 mg DAILY NGT Last administered on 10/17/16 09:38; Admin Dose 20 MG; Start 10/10/16 at 09:00 Amlodipine Besylate (Norvasc) 5 mg DAILY PO Last administered on 10/17/16 09: 37; Admin Dose 5 MG; Start 10/10/16 at 13:30 Clopidogrel Bisulfate (plaVIX) 75 mg DAILY GTB Last administered on 10/17/16 09:38; Admin Dose 75 MG; Start 10/11/16 at 09:00 Clonidine HCl (Catapres-Tts 1 Patch) 1 patch Q7D TRANSDERM Last administered on 10/17/16 21:23; Admin Dose 1 PATCH; Start 10/10/16 at 21:00 Levofloxacin (Levaquin) 500 mg DAILY@06 GTB Last administered on 10/18/16 05: 15; Admin Dose 500 MG; Start 10/12/16 at 10:00 Magnesium Oxide (Mag-Ox 400) 400 mg DAILY GTB Last administered on 10/17/16 09 :38; Admin Dose 400 MG; Start 10/13/16 at 16:00 Clindamycin HCl (Cleocin) 300 mg Q8 GTB Last administered on 10/18/16 05:15; Admin Dose 300 MG; Start 10/16/16 at 12:50 Potassium Chloride (Potassium Chloride Pwd/Soln) 20 meq BID GTB Last administered on 10/17/16 21:22; Admin Dose 20 MEQ; Start 10/16/16 at 12:51 Docusate Sodium (Colace Liquid Cup) 250 mg BID GTB Last administered on 21:22; Admin Dose 250 MG; Start 10/16/16 at 21:00 ADAN BLAIR Oct 18, 2016 09:27
[2016-10-18 14:20] VITALS: BP 114/55; RESP 19
--- NOTE | 2016-10-18 14:21 | CONS ---
Date/Time of Note Date/Time of Note DATE: 10/18/16 TIME: 14:21 Assessment/Plan Assessment/Plan Chief Complaint/Hosp Course ANEMIA N- CYTIC WITH N RDW WITH DROP H/H DURING HOSPITALIZATION MONITOR BLOOD COUNT CLOSELY OBSERVE FOR BLEEDING AND HEMOLYSIS + COMPONENT ACD acute kidney injury on CKD sepsis, dysphagia, aspiration PNA HTN Type II DM H/o recent CVA s/p tPA at [facility] atrial fibrillation with intermittently elevated HR Problems: Consultation Date/Type/Reason Admit Date/Time Oct 07, 2016 at 22:49 Initial Consult Date 10/08/16 Type of Consultation: HEMEONC Referring Provider: YASIR HART MD 24 HR Interval Summary Free Text/Dictation ALL NOTED IMPROVING Exam/Review of Systems Vital Signs Vitals Vital Signs Date Time Temp Pulse Resp B/P Pulse Ox O2 Delivery O2 Flow Rate FiO2 10/18/16 14:20 98.1 78 19 114/55 97 10/18/16 08:13 21 10/16/16 19:55 Nasal Cannula 2.0 Intake and Output 10/17/16 10/17/16 10/18/16 15:00 23:00 07:00 Intake Total 975 ml 1000 ml Output Total 900 ml 800 ml Balance 75 ml 200 ml Exam Constitutional: non-verbal Psych: no complaints Head: normocephalic Eyes: nl conjunctiva Respiratory: congested cough, crackles/rales, diminished breath sounds Cardiovascular: irregular rhythm, regular rate and rhythm Gastrointestinal: non-tender, soft Musculoskeletal: joint tenderness, muscle weakness, range of motion, swelling 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: lethargic, unresponsive Skin: nl turgor Lymph: nl lymph nodes Results Result Diagram: 10/17/16 0510 10/17/16 0510 Medications Medications Current Medications Acetaminophen (Tylenol Supp) 325 mg Q8 PRN [place] FEVER; Start 10/08/16 at 00:30 Metoprolol Tartrate (Lopressor) 50 mg BID NGT Last administered on 10/18/16 09 :13; Admin Dose 50 MG; Start 10/09/16 at 21:00 Hydralazine HCl (Apresoline) 10 mg Q6H PRN IV ELEVATED BLOOD PRESSURE; Start at 13:30 Ferrous Sulfate (Feosol Liquid Cup) 300 mg DAILY NGT Last administered on 09:12; Admin Dose 300 MG; Start 10/10/16 at 09:00 Famotidine (Pepcid) 20 mg DAILY NGT Last administered on 10/18/16 09:12; Admin Dose 20 MG; Start 10/10/16 at 09:00 Amlodipine Besylate (Norvasc) 5 mg DAILY PO Last administered on 10/18/16 09: 13; Admin Dose 5 MG; Start 10/10/16 at 13:30 Clopidogrel Bisulfate (plaVIX) 75 mg DAILY GTB Last administered on 10/18/16 09:12; Admin Dose 75 MG; Start 10/11/16 at 09:00 Clonidine HCl (Catapres-Tts 1 Patch) 1 patch Q7D TRANSDERM Last administered on 10/17/16 21:23; Admin Dose 1 PATCH; Start 10/10/16 at 21:00 Levofloxacin (Levaquin) 500 mg DAILY@06 GTB Last administered on 10/18/16 05: 15; Admin Dose 500 MG; Start 10/12/16 at 10:00 Magnesium Oxide (Mag-Ox 400) 400 mg DAILY GTB Last administered on 10/18/16 09 :13; Admin Dose 400 MG; Start 10/13/16 at 16:00 Clindamycin HCl (Cleocin) 300 mg Q8 GTB Last administered on 10/18/16 05:15; Admin Dose 300 MG; Start 10/16/16 at 12:50 Potassium Chloride (Potassium Chloride Pwd/Soln) 20 meq BID GTB Last administered on 10/18/16 09:14; Admin Dose 20 MEQ; Start 10/16/16 at 12:51 Docusate Sodium (Colace Liquid Cup) 250 mg BID GTB Last administered on 09:12; Admin Dose 250 MG; Start 10/16/16 at 21:00 TORRI HARLEY MD Oct 18, 2016 14:21
--- NOTE | 2016-10-18 15:58 | CONS ---
Date/Time of Note Date/Time of Note DATE: 10/18/16 TIME: 15:57 Assessment/Plan Assessment/Plan Chief Complaint/Hosp Course 89-year-old female with a history of diabetes mellitus, hypertension, atrial fibrillation had a stroke a few days ago for which she was hospitalized at [facility]. Swallow study was done patient failed swallow study so NG tube was passed and was transferred to care home. Patient was supposed to have a G-tube as outpatient but in the interim she aspirated became septic and was brought to the emergency room and admitted to [facility]. Patient is nonverbal. All the information gathered by reviewing the chart. Problems: Additional Assessment/Plan Problems: Additional Assessment/Plan Additional Assessment/Plan 1. CVA status post TPA at [facility] 2. Left hemiplegia 3. Dysphagia 4. Prerenal azotemia 5. Anemia 6. Diabetes mellitus 7. Hypertension 8. Atrial fibrillation 9. Possible aspiration pneumonia 10. 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, patient is awake oriented now responding to command, but has recovered well 11.s/p PEG Plan increase feeding slowly aspiration precaution continue present care Patient is on Plavix now no evidence of acute bleeding No evidence of aspiration Awaiting for the placement to SNF Consultation Date/Type/Reason Admit Date/Time Oct 07, 2016 at 22:49 Initial Consult Date 10/08/16 Type of Consultation: HEMEON Referring Provider: YASIR HART MD 24 HR Interval Summary Constitutional: improved, no complaints Exam/Review of Systems Vital Signs Vitals Vital Signs Date Time Temp Pulse Resp B/P Pulse Ox O2 Delivery O2 Flow Rate FiO2 10/18/16 14:20 98.1 78 19 114/55 97 10/18/16 08:13 21 10/16/16 19:55 Nasal Cannula 2.0 Intake and Output 10/17/16 10/17/16 10/18/16 15:00 23:00 07:00 Intake Total 975 ml 1000 ml Output Total 900 ml 800 ml Balance 75 ml 200 ml Exam Constitutional: alert, oriented, well developed Psych: nl mood/affect, no complaints Head: atraumatic, normocephalic Eyes: EOMI, PERRL, nl conjunctiva, nl lids, nl sclera ENMT: nl external ears & nose, nl lips & teeth, nl nasal mucosa & septum Neck: non-tender, supple Respiratory: clear to auscultation, normal air movement Cardiovascular: nl pulses, regular rate and rhythm Gastrointestinal: nl liver, spleen, non-tender, soft Musculoskeletal: nl extremities to inspection, nl gait and stance Extremities: normal pulses 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, nl mental status, nl speech, nl strength Skin: nl turgor, No rash or lesions Lymph: nl lymph nodes Results Result Diagram: 10/17/16 0510 10/17/16 0510 Medications Medications Current Medications Acetaminophen (Tylenol Supp) 325 mg Q8 PRN [place] FEVER; Start 10/08/16 at 00:30 Metoprolol Tartrate (Lopressor) 50 mg BID NGT Last administered on 10/18/16 09 :13; Admin Dose 50 MG; Start 10/09/16 at 21:00 Hydralazine HCl (Apresoline) 10 mg Q6H PRN IV ELEVATED BLOOD PRESSURE; Start at 13:30 Ferrous Sulfate (Feosol Liquid Cup) 300 mg DAILY NGT Last administered on 09:12; Admin Dose 300 MG; Start 10/10/16 at 09:00 Famotidine (Pepcid) 20 mg DAILY NGT Last administered on 10/18/16 09:12; Admin Dose 20 MG; Start 10/10/16 at 09:00 Amlodipine Besylate (Norvasc) 5 mg DAILY PO Last administered on 10/18/16 09: 13; Admin Dose 5 MG; Start 10/10/16 at 13:30 Clopidogrel Bisulfate (plaVIX) 75 mg DAILY GTB Last administered on 10/18/16 09:12; Admin Dose 75 MG; Start 10/11/16 at 09:00 Clonidine HCl (Catapres-Tts 1 Patch) 1 patch Q7D TRANSDERM Last administered on 10/17/16 21:23; Admin Dose 1 PATCH; Start 10/10/16 at 21:00 Levofloxacin (Levaquin) 500 mg DAILY@06 GTB Last administered on 10/18/16 05: 15; Admin Dose 500 MG; Start 10/12/16 at 10:00 Magnesium Oxide (Mag-Ox 400) 400 mg DAILY GTB Last administered on 10/18/16 09 :13; Admin Dose 400 MG; Start 10/13/16 at 16:00 Clindamycin HCl (Cleocin) 300 mg Q8 GTB Last administered on 10/18/16 14:25; Admin Dose 300 MG; Start 10/16/16 at 12:50 Potassium Chloride (Potassium Chloride Pwd/Soln) 20 meq BID GTB Last administered on 10/18/16 09:14; Admin Dose 20 MEQ; Start 10/16/16 at 12:51 Docusate Sodium (Colace Liquid Cup) 250 mg BID GTB Last administered on 09:12; Admin Dose 250 MG; Start 10/16/16 at 21:00 SANTOS GARCIA MD Oct 18, 2016 15:58
--- NOTE | 2016-10-18 18:06 | CONS ---
Date/Time of Note Date/Time of Note DATE: 10/18/16 TIME: 18:06 Assessment/Plan Assessment/Plan Additional Assessment/Plan 1. acute kidney injury on CKD, renal us showed -Atrophic right kidney. 2. sepsis, possibley due to Aspiration PNA s/p G tube placement now 3. HTN 4. Type II DM 5. H/o recent CVA s/p tPA at [facility] 6. atrial fibrillation with intermittently elevated HR 7. Hypernatremia- change IVF- D51/2 NS at 60 cc/hr 8. Hypokalemia- BMP to fu 9. Anemia- Monitor cbc,transfuse PRN Plan: continue PO magnesium and PO KCL Urine studies, and Uric acid unremarkable BP stable renal us showed -Atrophic right kidney. will continue to follow up on patient SNF placment in process Consultation Date/Type/Reason Admit Date/Time Oct 07, 2016 at 22:49 Initial Consult Date 10/08/16 Type of Consultation: NEPHROLOGY Referring Provider: YASIR HART MD 24 HR Interval Summary Free Text/Dictation No labs today, BP stable Exam/Review of Systems Vital Signs Vitals Vital Signs Date Time Temp Pulse Resp B/P Pulse Ox O2 Delivery O2 Flow Rate FiO2 10/18/16 16:28 75 18 98 21 10/18/16 14:20 98.1 114/55 10/16/16 19:55 Nasal Cannula 2.0 Intake and Output 10/17/16 10/17/16 10/18/16 15:00 23:00 07:00 Intake Total 975 ml 1000 ml Output Total 900 ml 800 ml Balance 75 ml 200 ml Results Result Diagram: 10/17/16 0510 10/17/16 0510 Medications Medications Current Medications Acetaminophen (Tylenol Supp) 325 mg Q8 PRN [place] FEVER; Start 10/08/16 at 00:30 Metoprolol Tartrate (Lopressor) 50 mg BID NGT Last administered on 10/18/16 09 :13; Admin Dose 50 MG; Start 10/09/16 at 21:00 Hydralazine HCl (Apresoline) 10 mg Q6H PRN IV ELEVATED BLOOD PRESSURE; Start at 13:30 Ferrous Sulfate (Feosol Liquid Cup) 300 mg DAILY NGT Last administered on 09:12; Admin Dose 300 MG; Start 10/10/16 at 09:00 Famotidine (Pepcid) 20 mg DAILY NGT Last administered on 10/18/16 09:12; Admin Dose 20 MG; Start 10/10/16 at 09:00 Amlodipine Besylate (Norvasc) 5 mg DAILY PO Last administered on 10/18/16 09: 13; Admin Dose 5 MG; Start 10/10/16 at 13:30 Clopidogrel Bisulfate (plaVIX) 75 mg DAILY GTB Last administered on 10/18/16 09:12; Admin Dose 75 MG; Start 10/11/16 at 09:00 Clonidine HCl (Catapres-Tts 1 Patch) 1 patch Q7D TRANSDERM Last administered on 10/17/16 21:23; Admin Dose 1 PATCH; Start 10/10/16 at 21:00 Levofloxacin (Levaquin) 500 mg DAILY@06 GTB Last administered on 10/18/16 05: 15; Admin Dose 500 MG; Start 10/12/16 at 10:00 Magnesium Oxide (Mag-Ox 400) 400 mg DAILY GTB Last administered on 10/18/16 09 :13; Admin Dose 400 MG; Start 10/13/16 at 16:00 Clindamycin HCl (Cleocin) 300 mg Q8 GTB Last administered on 10/18/16 14:25; Admin Dose 300 MG; Start 10/16/16 at 12:50 Potassium Chloride (Potassium Chloride Pwd/Soln) 20 meq BID GTB Last administered on 10/18/16 09:14; Admin Dose 20 MEQ; Start 10/16/16 at 12:51 Docusate Sodium (Colace Liquid Cup) 250 mg BID GTB Last administered on 09:12; Admin Dose 250 MG; Start 10/16/16 at 21:00 MAINOR HUTCHISON MD Oct 18, 2016 18:06
[2016-10-18 20:26] VITALS: BP 112/56; RESP 16
[2016-10-18] MEDS: ACETAMINOPHEN 325 MG SUPP PR PRN (21:33)
[2016-10-19] MEDS: IPRATROPIUM (NEB) 0.5 MG/2.5 ML AMP HHN SCH ×3 (00:31→16:33)
[2016-10-19] MEDS: ALBUTEROL 0.083% (NEB) 2.5 MG/3 ML AMP HHN SCH ×3 (00:32→16:33)
[2016-10-19 03:24] VITALS: BP 99/54; RESP 16
[2016-10-19] MEDS: LEVOFLOXACIN 500 MG TAB GTB SCH (05:12)
[2016-10-19] MEDS: CLINDAMYCIN 300 MG CAP GTB SCH ×2 (05:12→13:55)
[2016-10-19] MEDS: ACETAMINOPHEN 325 MG SUPP PR PRN (05:49)
--- NOTE | 2016-10-19 07:23 | CONS ---
Date/Time of Note Date/Time of Note DATE: 10/19/16 TIME: 07:22 Assessment/Plan Assessment/Plan Chief Complaint/Hosp Course Chronic atrial fibrillation: Had rapid rates on admission, now better after IVF and antibiotics. Controlled Aspiration PNA ARF: resolved Recent CVA s/p TPA DM HTN -metoprolol 50mg BID -amlodipine 5mg -on plavix (would prefer anticoagulation with coumadin or NOAC with pt's h/o stroke and high risk for recurrence, can be addressed as outpt) Problems: Consultation Date/Type/Reason Admit Date/Time Oct 07, 2016 at 22:49 Initial Consult Date 10/08/16 Type of Consultation: Cardiology Referring Provider: YASIR HART MD 24 HR Interval Summary Free Text/Dictation No o/n events. Awaiting placement Exam/Review of Systems Vital Signs Vitals Vital Signs Date Time Temp Pulse Resp B/P Pulse Ox O2 Delivery O2 Flow Rate FiO2 10/19/16 03:24 98.1 85 16 99/54 95 10/19/16 00:35 21 10/16/16 19:55 Nasal Cannula 2.0 Intake and Output 10/18/16 10/18/16 10/19/16 14:59 22:59 06:59 Intake Total 1000 ml 1000 ml Output Total 600 ml 500 ml Balance 400 ml 500 ml Exam Constitutional: alert Psych: no complaints Head: atraumatic, normocephalic Neck: No jvd Respiratory: crackles/rales (mild from ?atelectasis ), diminished breath sounds , No clear to auscultation Cardiovascular: No edema, No regular rate and rhythm Gastrointestinal: non-tender, soft 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: nl mental status, No nl speech Results Result Diagram: 10/17/1610 10/17/16 0510 Medications Medications Current Medications Acetaminophen (Tylenol Supp) 325 mg Q8 PRN [place] FEVER Last administered on 05:49; Admin Dose 325 MG; Start 10/08/16 at 00:30 Metoprolol Tartrate (Lopressor) 50 mg BID NGT Last administered on 10/18/16 21 :32; Admin Dose 50 MG; Start 10/09/16 at 21:00 Hydralazine HCl (Apresoline) 10 mg Q6H PRN IV ELEVATED BLOOD PRESSURE; Start at 13:30 Ferrous Sulfate (Feosol Liquid Cup) 300 mg DAILY NGT Last administered on 09:12; Admin Dose 300 MG; Start 10/10/16 at 09:00 Famotidine (Pepcid) 20 mg DAILY NGT Last administered on 10/18/16 09:12; Admin Dose 20 MG; Start 10/10/16 at 09:00 Amlodipine Besylate (Norvasc) 5 mg DAILY PO Last administered on 10/18/16 09: 13; Admin Dose 5 MG; Start 10/10/16 at 13:30 Clopidogrel Bisulfate (plaVIX) 75 mg DAILY GTB Last administered on 10/18/16 09:12; Admin Dose 75 MG; Start 10/11/16 at 09:00 Clonidine HCl (Catapres-Tts 1 Patch) 1 patch Q7D TRANSDERM Last administered on 10/17/16 21:23; Admin Dose 1 PATCH; Start 10/10/16 at 21:00 Levofloxacin (Levaquin) 500 mg DAILY@06 GTB Last administered on 10/19/16 05: 12; Admin Dose 500 MG; Start 10/12/16 at 10:00 Magnesium Oxide (Mag-Ox 400) 400 mg DAILY GTB Last administered on 10/18/16 09 :13; Admin Dose 400 MG; Start 10/13/16 at 16:00 Clindamycin HCl (Cleocin) 300 mg Q8 GTB Last administered on 10/19/16 05:12; Admin Dose 300 MG; Start 10/16/16 at 12:50 Potassium Chloride (Potassium Chloride Pwd/Soln) 20 meq BID GTB Last administered on 10/18/16 21:32; Admin Dose 20 MEQ; Start 10/16/16 at 12:51 Docusate Sodium (Colace Liquid Cup) 250 mg BID GTB Last administered on 21:32; Admin Dose 250 MG; Start 10/16/16 at 21:00 ADAN BLAIR Oct 19, 2016 07:22
[2016-10-19 07:50] VITALS: BP 116/55; RESP 18
[2016-10-19] MEDS: MAGNESIUM OXIDE 400 MG TAB GTB SCH (08:49)
[2016-10-19] MEDS: FAMOTIDINE 20 MG TAB NGT SCH (08:49)
[2016-10-19] MEDS: CLOPIDOGREL 75 MG TAB GTB SCH (08:49)
[2016-10-19] MEDS: POTASSIUM CHLORIDE 20 MEQ POWDER FOR ORAL SOLN GTB SCH (08:49)
[2016-10-19] MEDS: FERROUS SULFATE 60 MG/ML 5ML CUP NGT SCH (08:49)
[2016-10-19] MEDS: METOPROLOL 50 MG TAB NGT SCH (08:50)
[2016-10-19] MEDS: AMLODIPINE 5 MG TAB PO SCH (08:50)
[2016-10-19] MEDS: DOCUSATE SODIUM 10 MG/ML (10ML CUP) GTB SCH (08:51)
--- NOTE | 2016-10-19 09:04 | PN ---
Date/Time of Note Date/Time of Note DATE: 10/19/16 TIME: 08:58 Assessment/Plan VTE Prophylaxis VTE Prophylaxis Intervention: ambulation, anti-embolic stocking VTE Contraindication Reason: peripheral vascular disease Lines/Catheters IV Catheter Type (from Nrsg): [place] [employer] [place] line still needed: No Urinary Cath still in place: Yes Reason Cath still needed: urinary retention Assessment/Plan Chief Complaint/Hosp Course Chronic atrial fibrillation: Had rapid rates on admission, now better after IVF and antibiotics. Controlled Aspiration PNA ARF: resolved Recent CVA s/p TPA DM HTN -metoprolol 50mg BID -amlodipine 5mg -started on plavix (would prefer anticoagulation with coumadin or NOAC with pt' s h/o stroke and high risk for recurrence) -antibiotics per primary Problems: Assessment/Plan 1.CVA with left hemiplegia 3 weeks ago, s/p TPA 09/28; was in ICU of [facility] with involuntary movements of the left upper extremity. 2.S/P G tube placement-feeding continue at 40cc/hr. 3.Lactic acidosis- improved 4.ATN with improvement 5.Sepsis-aspiration pneumonia and /or URI/uti-improving 6.Severe PAD with carotid bruits bilaterally 7.DM type 2 new onset 8.Dysphagia, dysarthria, s/p failed one swallowing evaluation , now vith goot verbalisationa nd positive gag reflex. 9.Lethargic- more alert. 10.Iron deficiency- continue supplementation. 11.Anemia of chronic disease- drop of hct to 25- continue iron supplementation 12.Atrial fibrillation with controlled ventricular rate- unknown time duration 13.PTSD after acute stress months ago 14.S/P midline laparotomy with cholecystectomy 15.Hematuria- cleared ad oculus and uti improving 16.Urinary incontinence- with Arevalo drains clear urine. 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 22.Low magnesium, vit "D" and iron levels Cont'd Hospitalization Reason: rehabilitation. Subjective 24 Hr Interval Summary Free Text/Dictation Please cover me. It is cold. Constitutional: improved, poor po, requiring O2, No chills, No diaphoresis, No disoriented, No febrile, No no complaints, No other, No requiring IVF ENT: No bleeding, No congestion, No discharge, No dysphagia, No no complaints, No other, No pain, No sore throat Respiratory: No cough, No no complaints, No other, No pain, No pleuritic pain, No shortness of breath, No sputum, No wheezing Cardiovascular: No chest pain, No edema, No lightheadedness, No no complaints, No orthopenea, No other, No palpitations, No paroxysmal nocturnal dyspnea Gastrointestinal: constipation, flatus, passing stool, No blood, No decreased appetite, No diarrhea, No nausea, No no complaints, No other, No pain, No vomiting Musculoskeletal: bone/joint pain Skin: bruising, No erythema, No laceration, No no complaints, No other, No pruritis, No rash , No skin lesions Neurologic: focal-weakness (left hemiplegia persists.) Exam/Review of Systems Vital Signs Vitals Vital Signs Date Time Temp Pulse Resp B/P Pulse Ox O2 Delivery O2 Flow Rate FiO2 10/19/16 08:36 80 18 96 21 10/19/16 07:50 98.4 116/55 10/16/16 19:55 Nasal Cannula 2.0 Intake and Output 10/18/16 10/18/16 10/19/16 15:00 23:00 07:00 Intake Total 1000 ml 1000 ml Output Total 600 ml 500 ml Balance 400 ml 500 ml Exam Constitutional: frail, other (lethargic but arousable.) Psych: anxiety, confusion, depression, No nl mood/affect, No no complaints, No other, No suicidal Head: atraumatic, No hematomas, No lacerations, No normocephalic, No other Eyes: EOMI, PERRL, nl lids, No fundi, disc, No icteric, No nl conjunctiva, No nl sclera, No other ENMT: nl nasal mucosa & septum, No intubated, No mucosa pink and moist, No nl external ears & nose, No nl lips & teeth, No other, No tympanic membranes Neck: bruits, jvd, non-tender, nuchal rigidity, No masses, No other, No supple, No thyromegaly Respiratory: clear to auscultation, diminished breath sounds, normal air movement, No congested cough, No crackles/rales, No intercostal retraction, No labored breathing, No other, No respirations, No tactile fremitus, No wheezing Cardiovascular: bruits, jugular venous distention (JVD), systolic murmur Gastrointestinal: bowel sounds, nl liver, spleen, soft, surgical scars, No ascites, No distended, No firm, No hepatomegaly, No mass, No non-tender, No other, No rebound or guarding, No splenomegaly, No tender Genitourinary - Female: No CMT, No CVA tenderness, No nl adnexae, No nl external genitalia, No other, No uterus Musculoskeletal: joint tenderness, muscle tone, muscle weakness, nl extremities to inspection (left upper extreremityu in hemiflex position, flaxid.), other, No nl gait and stance, No range of motion, No spine non-tender, No swelling Extremities: normal pulses, No calf tenderness, No clubbing, No cyanosis, No edema, No other, No palpable cord, No pitting pedal edema, No tenderness 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: TEST CONDUCTOR II-XII intact, focal weakness, lethargic (arousable and more clear verbalisation of words.) Skin: rash or lesions Results Result Diagram: 10/17/1650910/17/16509 Medications Medications Current Medications Acetaminophen (Tylenol Supp) 325 mg Q8 PRN [place] FEVER Last administered on 05:49; Admin Dose 325 MG; Start 10/08/16 at 00:30 Metoprolol Tartrate (Lopressor) 50 mg BID NGT Last administered on 10/18/16 21 :32; Admin Dose 50 MG; Start 10/09/16 at 21:00 Hydralazine HCl (Apresoline) 10 mg Q6H PRN IV ELEVATED BLOOD PRESSURE; Start at 13:30 Ferrous Sulfate (Feosol Liquid Cup) 300 mg DAILY NGT Last administered on 09:12; Admin Dose 300 MG; Start 10/10/16 at 09:00 Famotidine (Pepcid) 20 mg DAILY NGT Last administered on 10/18/16 09:12; Admin Dose 20 MG; Start 10/10/16 at 09:00 Amlodipine Besylate (Norvasc) 5 mg DAILY PO Last administered on 10/18/16 09: 13; Admin Dose 5 MG; Start 10/10/16 at 13:30 Clopidogrel Bisulfate (plaVIX) 75 mg DAILY GTB Last administered on 10/18/16 09:12; Admin Dose 75 MG; Start 10/11/16 at 09:00 Clonidine HCl (Catapres-Tts 1 Patch) 1 patch Q7D TRANSDERM Last administered on 10/17/16 21:23; Admin Dose 1 PATCH; Start 10/10/16 at 21:00 Levofloxacin (Levaquin) 500 mg DAILY@06 GTB Last administered on 10/19/16 05: 12; Admin Dose 500 MG; Start 10/12/16 at 10:00 Magnesium Oxide (Mag-Ox 400) 400 mg DAILY GTB Last administered on 10/18/16 09 :13; Admin Dose 400 MG; Start 10/13/16 at 16:00 Clindamycin HCl (Cleocin) 300 mg Q8 GTB Last administered on 10/19/16 05:12; Admin Dose 300 MG; Start 10/16/16 at 12:50 Potassium Chloride (Potassium Chloride Pwd/Soln) 20 meq BID GTB Last administered on 10/18/16 21:32; Admin Dose 20 MEQ; Start 10/16/16 at 12:51 Docusate Sodium (Colace Liquid Cup) 250 mg BID GTB Last administered on 21:32; Admin Dose 250 MG; Start 10/16/16 at 21:00 YASIR HART MD Oct 19, 2016 09:04
--- NOTE | 2016-10-19 13:05 | RADRPT ---
PROCEDURE: XR Chest. CLINICAL INDICATION: Respiratory distress TECHNIQUE: Single AP portable chest. COMPARISON: 10/11/2016 Chest x-ray FINDINGS: Stable mild cardiomegaly and vascular congestion. Tortuosity of the thoracic aorta. Hypoventilator y changes. Atherosclerotic calcification of the aorta. Right base opacity compatible with atelecta sis or consolidation. Chronic right lower rib fractures. No pneumothorax. The osseous structures an d soft tissues are unremarkable. IMPRESSION: 1. Cardiomegaly and vascular congestion. 2. Right base opacity compatible with atelectasis or consolidation. 3. Chronic right lower rib fractures. RPTAT:AAJJ Physician Palomo Date Time Electronically viewed and signed by Physician Palomo on 10/19/2016 13:04 ANUEL/
[2016-10-19 14:22] VITALS: BP 111/55; RESP 18
--- NOTE | 2016-10-19 16:54 | CONS ---
Date/Time of Note Date/Time of Note DATE: 10/19/16 TIME: 16:53 Assessment/Plan Assessment/Plan Additional Assessment/Plan 1. acute kidney injury on CKD, renal us showed -Atrophic right kidney. 2. sepsis, possibley due to Aspiration PNA s/p G tube placement now 3. HTN 4. Type II DM 5. H/o recent CVA s/p tPA at [facility] 6. atrial fibrillation with intermittently elevated HR 7. Hypernatremia- change IVF- D51/2 NS at 60 cc/hr 8. Hypokalemia- BMP to fu 9. Anemia- Monitor cbc,transfuse PRN Plan: continue PO magnesium and PO KCL , no labs today to review Urine studies, and Uric acid unremarkable BP stable renal us showed -Atrophic right kidney. will continue to follow up on patient SNF placment in process Consultation Date/Type/Reason Admit Date/Time Oct 07, 2016 at 22:49 Initial Consult Date 10/08/16 Type of Consultation: NEPHROLOGY Referring Provider: YASIR HART MD 24 HR Interval Summary Free Text/Dictation no acute events overnight, stable on med/surge floor Exam/Review of Systems Vital Signs Vitals Vital Signs Date Time Temp Pulse Resp B/P Pulse Ox O2 Delivery O2 Flow Rate FiO2 10/19/16 16:34 68 20 96 21 10/19/16 14:22 98.4 111/55 10/16/16 19:55 Nasal Cannula 2.0 Intake and Output 10/18/16 10/18/16 10/19/16 15:00 23:00 07:00 Intake Total 1000 ml 1000 ml Output Total 600 ml 500 ml Balance 400 ml 500 ml Exam Constitutional: more awake today Respiratory: congested cough, crackles/rales, diminished breath sounds Cardiovascular: irregular rhythm, regular rate and rhythm Gastrointestinal: non-tender, soft, + g tube in place, site clear Musculoskeletal: joint tenderness, muscle weakness, range of motion, swelling 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: not cooperativ Results Result Diagram: 10/17/16 0510 10/17/16 0510 Medications Medications Current Medications Acetaminophen (Tylenol Supp) 325 mg Q8 PRN [place] FEVER Last administered on 05:49; Admin Dose 325 MG; Start 10/08/16 at 00:30 Metoprolol Tartrate (Lopressor) 50 mg BID NGT Last administered on 10/19/16 08 :50; Admin Dose 50 MG; Start 10/09/16 at 21:00 Hydralazine HCl (Apresoline) 10 mg Q6H PRN IV ELEVATED BLOOD PRESSURE; Start at 13:30 Ferrous Sulfate (Feosol Liquid Cup) 300 mg DAILY NGT Last administered on 08:49; Admin Dose 300 MG; Start 10/10/16 at 09:00 Famotidine (Pepcid) 20 mg DAILY NGT Last administered on 10/19/16 08:49; Admin Dose 20 MG; Start 10/10/16 at 09:00 Amlodipine Besylate (Norvasc) 5 mg DAILY PO Last administered on 10/19/16 08: 50; Admin Dose 5 MG; Start 10/10/16 at 13:30 Clopidogrel Bisulfate (plaVIX) 75 mg DAILY GTB Last administered on 10/19/16 08:49; Admin Dose 75 MG; Start 10/11/16 at 09:00 Clonidine HCl (Catapres-Tts 1 Patch) 1 patch Q7D TRANSDERM Last administered on 10/17/16 21:23; Admin Dose 1 PATCH; Start 10/10/16 at 21:00 Levofloxacin (Levaquin) 500 mg DAILY@06 GTB Last administered on 10/19/16 05: 12; Admin Dose 500 MG; Start 10/12/16 at 10:00 Magnesium Oxide (Mag-Ox 400) 400 mg DAILY GTB Last administered on 10/19/16 08 :49; Admin Dose 400 MG; Start 10/13/16 at 16:00 Clindamycin HCl (Cleocin) 300 mg Q8 GTB Last administered on 10/19/16 13:55; Admin Dose 300 MG; Start 10/16/16 at 12:50 Potassium Chloride (Potassium Chloride Pwd/Soln) 20 meq BID GTB Last administered on 10/19/16 08:49; Admin Dose 20 MEQ; Start 10/16/16 at 12:51 Docusate Sodium (Colace Liquid Cup) 250 mg BID GTB Last administered on 21:32; Admin Dose 250 MG; Start 10/16/16 at 21:00 MAINOR HUTCHISON MD Oct 19, 2016 16:54
--- NOTE | 2016-10-19 22:44 | CONS ---
Date/Time of Note Date/Time of Note DATE: 10/19/16 TIME: 11:43 VK LE Assessment/Plan Assessment/Plan Chief Complaint/Hosp Course ANEMIA N- CYTIC WITH N RDW WITH DROP H/H DURING HOSPITALIZATION MONITOR BLOOD COUNT CLOSELY OBSERVE FOR BLEEDING AND HEMOLYSIS + COMPONENT ACD acute kidney injury on CKD sepsis, dysphagia, aspiration PNA HTN Type II DM H/o recent CVA s/p tPA at [facility] atrial fibrillation with intermittently elevated HR Problems: Consultation Date/Type/Reason Admit Date/Time Oct 07, 2016 at 22:49 Initial Consult Date 10/08/16 Type of Consultation: HEMEONC Referring Provider: YASIR HART MD 24 HR Interval Summary Free Text/Dictation ALL NOTED GOING TO SNF TODAY Exam/Review of Systems Vital Signs Vitals Vital Signs Date Time Temp Pulse Resp B/P Pulse Ox O2 Delivery O2 Flow Rate FiO2 10/19/16 16:34 68 20 96 21 10/19/16 14:22 98.4 111/55 10/16/16 19:55 Nasal Cannula 2.0 Intake and Output 10/18/16 10/18/16 10/19/16 15:00 23:00 07:00 Intake Total 1000 ml 1000 ml Output Total 600 ml 500 ml Balance 400 ml 500 ml Exam Constitutional: non-verbal Psych: no complaints Head: normocephalic Eyes: nl conjunctiva Respiratory: congested cough, crackles/rales, diminished breath sounds Cardiovascular: irregular rhythm, regular rate and rhythm Gastrointestinal: non-tender, soft Musculoskeletal: joint tenderness, muscle weakness, range of motion, swelling 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: lethargic, unresponsive Skin: nl turgor Lymph: nl lymph nodes Results Result Diagram: 10/17/16 0510 10/17/16 0510 TORRI HARLEY MD Oct 19, 2016 22:44
--- NOTE | 2016-10-20 08:55 | PDOCDIS ---
Discharge Instructions DIAGNOSIS Discharge Diagnosis 1.CVA with left hemiplegia 3 weeks ago, s/p TPA 09/28; was in ICU of [facility] with involuntary movements of the left upper extremity. 2.S/P G tube placement-feeding continue at 40cc/hr. 3.Lactic acidosis- improved 4.ATN with improvement 5.Sepsis-aspiration pneumonia and /or URI/uti-improving 6.Severe PAD with carotid bruits bilaterally 7.DM type 2 new onset 8.Dysphagia, dysarthria, s/p failed one swallowing evaluation , now vith goot verbalisationa nd positive gag reflex. 9.Lethargic- more alert. 10.Iron deficiency- continue supplementation. 11.Anemia of chronic disease- drop of hct to 25- continue iron supplementation 12.Atrial fibrillation with controlled ventricular rate- unknown time duration 13.PTSD after acute stress months ago 14.S/P midline laparotomy with cholecystectomy 15.Hematuria- cleared ad oculus and uti improving 16.Urinary incontinence- with Arevalo drains clear urine. 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 22.Low magnesium, vit "D" and iron levels CONDITION Patient Condition: Stable HOME CARE INSTRUCTIONS: Diet Instructions: Reduced SodiumSpecial Diet: GTF ACTIVITY: Activity Restrictions: Special Exercises Bathing Restrictions: Sponge Bath FOLLOW UP/APPOINTMENTS Follow-up Plan SNF f/u. REFERRALS Referring Provider: YASIR HART MD OTHER ORDERS: Other Orders: pt/ot in snf. SCHOOL/WORK RELEASE May return to School/Work on: Oct 19, 2016 May return to School/Work with: School/Work Release Comment: none. YASIR HART MD Oct 20, 2016 08:55
== END 2016-10-19 18:15 | DRG 871 ==
LOC: E/R 20:42 → MS4 22:49 → PP2 10-16 00:58
PROVIDERS: ADMIT Family Medicine; ATTEND Family Medicine
PROC: 0DH63UZ Insertion of Feeding Device into Stomach, Percutaneous Approach (ICD-10-PCS; principal; 2016-10-10 13:30)
DX: A41.9 Sepsis, unspecified organism (principal); J69.0 Pneumonitis due to inhalation of food and vomit; N17.0 Acute kidney failure with tubular necrosis; E87.0 Hyperosmolality and hypernatremia; G92 Toxic encephalopathy; R13.10 Dysphagia, unspecified; I69.954 Hemiplegia and hemiparesis following unspecified cerebrovascular disease affecting left non-dominant side; R71.0 Precipitous drop in hematocrit; N39.0 Urinary tract infection, site not specified; I48.91 Unspecified atrial fibrillation; E86.0 Dehydration; I12.9 Hypertensive chronic kidney disease with stage 1 through stage 4 chronic kidney disease, or unspecified chronic kidney disease; Z86.73 Personal history of transient ischemic attack (TIA), and cerebral infarction without residual deficits; E11.9 Type 2 diabetes mellitus without complications; D50.8 Other iron deficiency anemias; I73.9 Peripheral vascular disease, unspecified; R47.1 Dysarthria and anarthria; F43.10 Post-traumatic stress disorder, unspecified; R31.9 Hematuria, unspecified; R32 Unspecified urinary incontinence; M81.0 Age-related osteoporosis without current pathological fracture; M40.209 Unspecified kyphosis, site unspecified; Z66 Do not resuscitate; N18.9 Chronic kidney disease, unspecified; N26.1 Atrophy of kidney (terminal); E87.6 Hypokalemia; Z79.02 Long term (current) use of antithrombotics/antiplatelets; Z79.82 Long term (current) use of aspirin; Z79.4 Long term (current) use of insulin
CPT/HCPCS: 36415; 71010; 74000; 74230; 76775; 80048; 80053; 81003; 82270; 82306; 82378; 82570; 82607; 82728; 82746; 82962; 83010; 83540; 83605; 83735; 84100; 84155; 84165; 84300; 84443; 84484; 84560; 85025; 85045; 85610; 85651; 85730; 87040; 89190; 92526; 92610; 92611; 93005; 93306; 93880; 93970; 94640; 94664; 96374; 96375; 97110; 97162; 97530; J0456; J0690; J0696; J1720; J2543; J3370; J3475; J7030; J7042; J7070; J7512